=== PATIENT | male | born 1950 | race Caucasian/White ===

== ENCOUNTER 2024-03-04 13:13 | Outpatient (AMB) | payer BC, SELFPAY ==
--- NOTE | 2024-03-04 13:26 | MHC.OFFVIS ---
Vital Signs 03/04/24 13:29 Height 6 ft 2 in Weight 230 lb BMI 29.5 BP 128/76 Blood Pressure Location Lt brachial Position Sitting Pulse 90 Pulse Source Pulse Oximeter Pulse Oximetry (%) 96 Oxygen Delivery Method Room Air Intake Visit Reasons: Emphysema [employer] Laboratory Assistant Required: No Allergies Penicillins Adverse Reaction (Severe, Verified 03/04/24 13:27) Hives HPI Comments Details: The patient is here for pulmonary evaluation. The patient is a 73-year-old gentleman former smoker who was developing worsening dyspnea on exertion. The patient states that he has smoke since he was 22. Initially with a pipe and then cigars. He really enjoys smoking and he found that as a past time. Was not until he started in the lung cancer screening program. The patient had an initial CT scan in 01/31/2022 demonstrating moderate degree of emphysema and no pulmonary nodules. Subsequently after that he had a repeat CT scan at [facility] as part of the lung cancer screening program 02/01/2024 with persistent emphysema no pulmonary nodules although he does have significant calcifications all the major vessels and mild calcifications of the coronary arteries. The patient has not been using any inhalers. He states that he had 1 inhaler when he had COVID more than a year ago enough that he did not need any further inhalers. He has been noticing the progressive dyspnea the last several months. He has gotten to the point that he can not keep up with usual activities of daily living. Moderate severity. During the visit today we did go for brief walking oximetry. His oxygen actually was good around 95-96% with activity. Although the heart rate quickly increased to 135 beats per minute. Appeared to be sinus. And the patient was visibly dyspneic 6/10 in the dyspnea score. Lungs are diminished without any wheezing or rhonchi. His cardiac exam is positive for tachycardia. Explained to the patient that at this point that although he does have emphysema need to consider underlying cardiopulmonary conditions that could be affecting his exercise capacity. PENDING SALE TO [facility] Medical History (Updated 03/04/24 @ 20:27 by Khanh Link MD) Abnormal EKG Dyspnea COPD (chronic obstructive pulmonary disease) Tachycardia Social History (Updated 03/04/24 @ 13:32 by GHULAM Fernandes) Patient Tobacco Use Status: Former Tobacco user Tobacco use type: Cigarette Years Smoked: 60 Years Review of Systems Const Reports daytime sleepiness and Reports snoring Eyes Reports no additional complaints ENT Reports no additional complaints Card Reports palpitations and Reports dyspnea on exertion Resp Reports dyspnea on exertion, Reports snoring and Denies wheezing GI Reports no additional complaints Musc Reports no additional complaints Skin/Breast Denies rash Endo Reports palpitations Jc/Lymph Reports no additional complaints Aller/Immun Denies wheezing Physical Exam Vital Signs: Last Vital Signs Pulse 90 03/04/24 13:29 BP 128/76 03/04/24 13:29 Pulse Ox 96 03/04/24 13:29 Oxygen Delivery Method Room Air 03/04/24 13:29 BMI result Body Mass Index 29.5 Const General: comfortable HEENT Head: Yes normocephalic Neck Neck: Yes supple Chest Chest palpation & inspection: normal inspection of the chest Resp Effort & Inspection: normal respiratory effort Auscultation: clear to auscultation bilaterally Cardio Rate: tachycardic Heart sounds: S1 normal heart sound present and S2 normal heart sound present GI Palpation (GI): Soft to palpation Skin General skin exam: no rashes or lesions noted Extrem General: Yes no clubbing, cyanosis or edema Results Reviewed Results Reviewed: [address] [address] Electrocardiograph Report Draft Patient: Dain Brewer MR#: [id number] : 1950 Acct:[id number] Age/Sex: 73 / M ADM Date: 03/04/24 Loc: .[facility] Attending Dr: Khanh Link MD Ordering Physician: Khanh Link MD Date of Service: 03/04/24 Procedure(s): ECG 12 lead EKG Accession Number(s): [id number] cc: ~ Test Reason : copd Blood Pressure : / mmHG Vent. Rate : 104 BPM Atrial Rate : 104 BPM P-R Int : 170 ms QRS Dur : 074 ms QT Int : 344 ms P-R-T Axes : 076 023 074 degrees QTc Int : 452 ms Sinus tachycardia with occasional Premature ventricular complexes Possible Left atrial enlargement Low voltage QRS Cannot rule out Anterior infarct , age undetermined Abnormal ECG No previous ECGs available Referred By: Khanh Link Electronically Signed By: Dictated By: Signed By: DD/ 23 TD/TT: 03/04/24 1430 [address]: Assessment & Plan Assessment & Plan (1) COPD (chronic obstructive pulmonary disease): Code(s): J44.9 - Chronic obstructive pulmonary disease, unspecified Category: Medical Qualifiers: COPD type: emphysema Emphysema type: centrilobular Qualified Code(s): J43.2 - Centrilobular emphysema (2) Dyspnea: Code(s): R06.00 - Dyspnea, unspecified Category: Medical Qualifiers: Dyspnea type: dyspnea on exertion Qualified Code(s): R06.09 - Other forms of dyspnea (3) Tachycardia: Code(s): R00.0 - Tachycardia, unspecified Category: Medical (4) Abnormal EKG: Code(s): R94.31 - Abnormal electrocardiogram [ECG] [EKG] Category: Medical Plan Hold inhalers for now EKG is abnromal, will refer to cardiology at [facility] ECHO at [place] PFTs Consider PSG F/U 6-8 weeks Orders: Orders ECG 12 lead EKG Today J44.9 - Chronic obstructive pulmonary disease, unspecified, R00.0 - Tachycardia, unspecified, R06.00 - Dyspnea, unspecified CA echo transthoracic complete Today I27.20 - Pulmonary hypertension, unspecified PFT pulmonary function test Today J44.9 - Chronic obstructive pulmonary disease, unspecified Referrals Cardiology Referral R00.0 - Tachycardia, unspecified, R06.00 - Dyspnea, unspecified, R94.31 - Abnormal electrocardiogram [ECG] [EKG] Coding Level of Care Code New Pt Level 4 (23478) Diagnoses Centrilobular emphysema J43.2 COPD type: emphysema Emphysema type: centrilobular Dyspnea on exertion R06.09 Dyspnea type: dyspnea on exertion Tachycardia R00.0 Abnormal EKG R94.31 Time Spent (min) 45
[2024-03-04 13:29] VITALS: BP 128/76; PULSE 90; O2SAT 96; BMI 29.5
== END 2024-03-04 14:05 | disposition home or self-care (01) ==
PROVIDERS: PCP Family Medicine; Referring Provider Family Medicine; Visit Provider Hospitalist
DX: J43.2 Centrilobular emphysema (principal); R06.09 Other forms of dyspnea; R00.0 Tachycardia, unspecified; R94.31 Abnormal electrocardiogram [ECG] [EKG]
CPT/HCPCS: 99204

== ENCOUNTER → 2024-03-04 13:13 | Outpatient (REF) | payer BC, SELFPAY ==
--- NOTE | 2024-03-04 14:25 | ECG_ITS ---
Test Reason : copd Blood Pressure : / mmHG Vent. Rate : 104 BPM Atrial Rate : 104 BPM P-R Int : 170 ms QRS Dur : 074 ms QT Int : 344 ms P-R-T Axes : 076 023 074 degrees QTc Int : 452 ms Sinus tachycardia with occasional Premature ventricular complexes Possible Left atrial enlargement Low voltage QRS Cannot rule out Anterior infarct , age undetermined Abnormal ECG No previous ECGs available Referred By: Khanh Link Electronically Signed By:Luis Antonio Childs
== END ==
LOC: HO.CARD 13:13
PROVIDERS: PCP Family Medicine; Referring Provider Family Medicine; Visit Provider Hospitalist
DX: R00.0 Tachycardia, unspecified (principal); R06.00 Dyspnea, unspecified; J44.9 Chronic obstructive pulmonary disease, unspecified
CPT/HCPCS: 93005

== ENCOUNTER → 2024-03-04 14:25 | Outpatient (BNV) | payer BC, SELFPAY | PROVIDERS: PCP Family Medicine; Referring Provider Family Medicine; Visit Provider Internal Medicine Cardiovascular Disease | DX: R00.0 Tachycardia, unspecified (principal) | CPT/HCPCS: 93010 ==

== ENCOUNTER 2024-07-02 09:33 | Outpatient (REF) | payer BC, SELFPAY ==
--- NOTE | 2024-07-02 09:42 | PFT_ITS ---
Flows: FEV1: 75 % of predicted at 2.69 L FVC: 83 % of predicted at 3.99 L FEV1/FVC: 67 % Bronchodilator response: Absent Volumes: Total lung capacity: 69 % of predicted at 5.63 L Residual volume: 63 % of predicted at 1.86 L Slow vital capacity: 74 % of predicted at 3.77 L Expiratory reserve volume: 94 % of predicted at 1.42 L Diffusion capacity: Moderately decreased, adjusts to being mildly decreased after correction for alveolar ventilation. Impression: Moderate obstructive ventilatory defect with no bronchodilator response. Decreased diffusion capacity suggests emphysema. MTDD
--- OUTSIDE RECORDS SUMMARY | 2024-07-02 09:52 | XMS_ITS ---
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 Troponins were flat. 03/28 CABG x 3 with post op Afib. Plavix and aspirin for 1 year for NSTEMI. Will be starting cardiac rehab in May. Will be seeing gynecology teacher Dr. Castro on May 02. 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 New onset a-fib (CMS/HCC) 05/07/2024 Assessment & Plan (05/07/2024 9:55 PM EST): Post CABG Afib. Continue beta rosalind, eliquis as prescribed by gynecology teacher. Emphysema of lung 05/07/2024 Assessment & Plan (05/07/2024 9:55 PM EST): 01/2024 CT chest showed evidence of pulmonary emphysema but no suspicious pulmonary nodules seen. Recommend pulmonary follow up and repeat CT chest in 12 months. Pain of both shoulder joints 02/08/2024 Subacromial bursitis of both shoulders Seborrheic keratosis 07/12/2023 Allergic rhinitis 05/16/2023 At average risk for colon cancer 05/16/2023 Basal cell carcinoma of skin 05/16/2023 Cigarette nicotine dependence 05/16/2023 Assessment & Plan (01/24/2024 7:54 AM EDT): Current daily 3-4 cigar smoker x 20 years. Started smoking at age 12. Smoking cessation encouraged. CT lung 2021 Moderate pulmonary emphysema with no new or developing pulmonary nodule. Orders: CT Lung Cancer Screening 12 Months Annual Follow Up; Future Low back pain 05/16/2023 Diverticulosis 05/16/2023 Elevated liver transaminase level 05/16/2023 Finger numbness 05/16/2023 Glaucoma 05/16/2023 Hearing loss 05/16/2023 Hypercholesterolemia 05/16/2023 Assessment & Plan (01/24/2024 7:54 AM EDT): Tolerating statin therapy. Routine lipid monitoring. Continue statin as prescribed. Assessment & Plan (07/12/2023 5:54 PM EST): Tolerating statin therapy. Routine lipid monitoring. Continue statin as prescribed. Hyperkalemia 05/16/2023 Hypertension 05/16/2023 Inguinal hernia, left 05/16/2023 Assessment & Plan (01/24/2024 7:54 AM EDT): Left groin hernia surgery 6 years ago without mesh. Now starting to bother him again for approximately [address] Barney, referral placed. Orders: Ambulatory referral to General Surgery; Future Insomnia 05/16/2023 Assessment & Plan (01/24/2024 7:54 AM EDT): Reviewed sleep hygiene. Recommend caffeine reduction. Defers medications at this time. Assessment & Plan (07/12/2023 5:52 PM EST): Reviewed sleep hygiene. Recommend caffeine reduction. Defers medications at this time. 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 Osteoarthritis 05/16/2023 Raynaud disease 05/16/2023 Rectal hemorrhage 05/16/2023 Actinic keratosis 05/16/2023 Tubular adenoma of colon 05/16/2023 Urinary hesitancy 05/16/2023 Vitamin D deficiency 05/16/2023 Flu-like symptoms 05/16/2023 Tear of left rotator cuff 12/26/2022 Tendinitis of long head of biceps brachii of lef t shoulder 12/26/2022 Disc degeneration, lumbar 09/14/2016 Wears glasses 03/31/2010 Overview (07/12/2023): Recorded 03/31/2010 1:29PM by Liz Meraz, Historical Summary; Promoted; acuity set as * Backache 03/31/2010 Overview (07/12/2023): Recorded 03/31/2010 1:28PM by Liz Meraz, Historical Summary; Promoted; acuity set as * Current Treatment and Therapy Plans No current plan information found. Past Treatment and Therapy Plans No past plan information found. Lifetime Dose Tracking * Chemical Lifetime Dose Automatic Entry Manual Entr y TotalDLP 59 mGy 59 mGy 0 mGy [id number] 0.6 mSv 0.6 mSv 0 mSv CTDIvol Max 1.6 mGy 1.6 mGy 0 mGy CTDIvol Min 1.6 mGy 1.6 mGy 0 mGy Resolved Problems Problem Noted Date Diagnosed Date Resolved Date COVID-19 05/16/2023 05/07/2024 Former smoker 05/16/2023 01/17/2024
--- OUTSIDE RECORDS SUMMARY | 2024-07-02 09:52 | XMS_ITS | Referral Summary ---
Author Organization [facility] Address [address] [place] [address] Care Team Providers Care Rn Midwife Name Role Phone Janay Peters DO, Diana Primary Care Provider + Encounters Date Type Department Care Team Description 04/24/2024 9:00 AM EST Office Visit [address] Family Practice Department [address] [place] [address] [phone] Patrica Gustafson DO NSTEMI (non-ST elevated myocardial infarction) (HCC) (Primary Dx); S/P CABG x 3; New onset a-fib (CMS/HCC) (HCC); Pulmonary emphysema, unspecified emphysema type (HCC) 04/21/[address] Department [address] [place] [phone] Patrica Gustafson DO Surgery Follow up from Last 3 Months Allergies Active Allergy Reactions Criticality Noted Date Comments Cat Dander Unknown 07/12/2023 House Dust Unknown 07/12/2023 Mold Unknown 07/12/2023 Penicillins Unknown Medications multivitamin (MULTIPLE VITAMINS) tablet Act tiny latanoprost (XALATAN) 0.005% ophthalmic solution SMARTSIG:In Eye(s) Active atorvastatin (LIPITOR) 80 mg tablet Take 80 mg by mouth once a day. Active metoprolol tartrate 75 mg tablet Take 75 mg by mouth 2 (two) times a day. Active amiodarone (PACERONE) 200 mg tablet Take 200 mg by mouth once a day. Active aspirin 81 mg EC tablet Take 81 mg by mouth once a day. Active acetaminophen (TYLENOL) 325 mg tablet Take 650 mg by mouth. 04/05/2024 Active apixaban (ELIQUIS) 5 mg tablet Take 5 mg by mouth. 04/05/2024 Active Active Problems Problem Noted Date Diagnosed Date NSTEMI (non-ST elevated myocardial infarction) 1 07/08/2023 Assessment & Plan (05/07/2024 9:55 PM EST): 03/24/24 [facility] hospitalization for chest pain and [facility]. Troponins were flat. 03/28 CABG x 3 with post op Afib. Plavix and aspirin for 1 year for NSTEMI. Will be starting cardiac rehab in May. Will be seeing physical therapy professor Dr. Castro on May 02. 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 New onset a-fib (CMS/HCC) 05/07/2024 Assessment & Plan (05/07/2024 9:55 PM EST): Post CABG Afib. Continue beta rosalind, eliquis as prescribed by physical therapy professor. Emphysema of lung 05/07/2024 Assessment & Plan [...] Historical Summary; Promoted; acuity set as * Resolved Problems Problem Noted Date Diagnosed Date Resolved Date COVID-19 05/16/2023 05/07/2024 Former smoker 05/16/2023 01/17/2024 Immunizations Immunization Administration Dates Next Due Covid-19 Vaccine, J&J, Vecto r-nr, Rs-ad26, PF, 0.5 mL 05/22/2021,11/27/2020 INFLUENZA, SPLIT VIRUS, TRIVALENT, PF 05/30/2016 Influenza, High Dose Seasona l, Preservative Free 03/18/2021 Influenza, High Dose Seasona l, Quadrivalent PF 02/13/2022,03/18/2021 Influenza, Injectable, Madin Selena Canine Kidney, Preservative Free, Quadrivalent 03/02/2017 Influenza, Injectable, Quadr ivalent, Preservative Free 05/30/2016 Influenza, Trivalent, Adjuvanted, PF 01/17/2024, 01/28/2021 Influenza, Trivalent, MDV, Injectable 04/05/2015 ,04/02/2014,03/31/2013 Influenza, Unspecified 02/13/2022,04/04/2020 Pneumococcal Conjugate Vaccine, 13 Valent 2020 Pneumococcal Polysaccharide Vaccine, 23 Valent 04/05/2015 Pneumococcal conjugate PCV20 ,polysaccharide [id number] conjugate, adjuvant, PF (Prevnar 20) 02/28/2022 Tetanus Toxoid, Reduced Diph theria Toxoid, and Acellular Pertussis Vaccine, Adsorbed 01/04/2021,02/08/2010 Tetanus and Diphtheria Toxoi ds, Adsorbed, Preservative Free (2 Lf of Tetanus Toxoid and 2 Lf of Diphtheria Toxoid) 07/12/1997 Zoster Vaccine Recombinant 05/29/2022,03/14/2022 Zoster Vaccine, Live 04/18/2013 Social History Tobacco Use Types Packs/Day Years Used Date Smoking Tobacco: Every Day Cigarettes 0.5 62.1 Started: 1960 Passive Smoke Exposure: Past Smokeless Tobacco: Never Tobacco Cessation:Ready to Q uit: Not Asked; Counseling Given: Not Answered Alcohol Use Standard Drinks/Week Comments Not Currently 0 (1 standard drink = 0.6 oz pur e alcohol) Sex and Gender Information Value Date Recorded Sex Assigned at Male 07/07/2023 11:32 AM EST Legal Sex Male 7:24 PM EDT Gender Identity Male 07/07/2023 11:32 AM EST Sexual Orientation Straight 07/07/2023 11 :32 AM EST Last Filed Vital Signs Vital Sign Reading Time Taken Comments Blood Pressure 108/62 04/24/2024 9:08 AM EST Pulse 71 04/24/2024 9:08 AM EST Temperature 36.3 ??C (97.4 ??F) 04/24/2024 9:08 AM ES T Respiratory Rate - - Oxygen Saturation 95% 04/24/2024 9:08 AM EST Inhaled Oxygen Concentration - - Weight 105.6 kg (232 lb 12.8 oz) 04/24/2024 9:08 AM EST Height 182.9 cm (6') 04/24/2024 9:08 AM EST Body Mass Index 31.57 04/24/2024 9:08 AM EST Plan of Treatment Upcoming Encounters Date Type Department Care Team (Late st Contact Info) Description 07/17/2024 3:30 PM EST Office Visit [facility] [address] [facility] Family Practice Department [address] [place] [phone] Patrica Gustafson V, [address] [place] [address] Procedures * Due to [place] state law, this organization might not be sharing negative HIV tests. Procedure Name Priority Date/Time Associated Diagnosis Comments CT LUNG CANCER SCREENING 12 MONTHS ANNUAL FOLLOW UP Routine 02/08/2024 2:04 PM EDT Cigarette nicotine dependence without complication COMPREHENSIVE METABOLIC PANEL Routine 07/13/2023 8:07 AM EST Healthcare maintenance HEPATITIS PANEL, ACUTE Routine 01/01/2023 9:24 AM EDT US ABDOMINAL AORTA Routine 12/10/2019 8: 16 AM EDT from Last 3 Months or Most Recently Relevant to Health Maintenance Results * Due to [place] state law, this organization might not be sharing negative HIV tests. * CT Lung Cancer Screening 12 Months Annual Follow Up (02/08/2024 2:04 PM EDT) Anatomical Region Laterality Modality Chest Computed Tomogra phy 02/08/2024 3:10 PM EDT Impressions 02/21/2024 2:36 PM EDT Mild upper lobe predominant pulmonary emphysema. No suspicious pulmonary nodules or masses. No adenopathy, no pleural abnormalities. Lung-RADS Category 1: Negative- less than 1% probability ??of malignancy. Lung-RADS Category Description 1: Continue annual screening with CT Lung Screening ??in 12 months Findings under this category can include: ?? -No lung nodules or nodule(s) with benign calcification pattern ? Modifier No clinically significant or potentially significant findings Schedule lung cancer screening CT/follow-up CT: ----- ----- This report uses Lung RADS version 1.1 (2019) [email or web address] [email or web address]?la=en If this radiology report contains a blank impression section, it is an incomplete radiology report. ??Please contact the interpreting radiologist or applicable radiology division as soon as possible to obtain the completed interpretation. ? Workstation ID: [id number] Up-to-date CT equipment and radiation dose reduction techniques were employed. CTDIvol: 1.6 mGy. DLP: 59 mGy-cm. Narrative 02/21/2024 2:[address] LUNG CANCER SCREENING 12 MONTHS ANNUAL FOLLOW UP INDICATION: CT lung cancer screening. COMPARISON: Screening CT from 02/03/2022 TECHNIQUE: ??Non-enhanced chest CT. Images were acquired with helical acquisition and low dose technique. Multiplanar reconstructions including MIP, MinIP and Slab images were reviewed. Note that low dose technique uses a low level of radiation exposure that provides adequate lung detail but limited image quality in the mediastinum and upper abdomen. For radiation dose control at least one of the following techniques was used in this procedure (1) Automated exposure control (2) Adjustment of the mA and/or kV according to patient size (3) Use of iterative reconstruction technique. FINDINGS: BASE OF NECK: No abnormalities of the thoracic inlet. LUNGS AND PLEURA: Mild bilateral apical scarring. Moderate bilateral upper lobe predominant pulmonary emphysema. Areas of bandlike atelectasis in the lower lobe. No suspicious pulmonary nodules or masses. MEDIASTINUM: Normal appearance of the large mediastinal vessels. Patulous esophagus. Mild coronary calcifications. No abnormalities of the posterior mediastinum. NODES: No adenopathy. UPPER ABDOMEN: No abnormalities of the upper abdomen. BONES/SOFT TISSUES: Status post cervical vertebral fixation. Mild degenerative vertebral disease. Resulting Agency Comment [id number] Procedure Note Micah Ramos MD PhD - 02/21/2024 CT LUNG CANCER SCREENING 12 MONTHS ANNUAL FOLLOW UP INDICATION: CT lung cancer screening. COMPARISON: Screening CT from 02/03/2022 TECHNIQUE: Non-enhanced chest CT. Images were acquired with helicalacquisition and low dose technique. Multiplanar reconstructions includingMIP, MinIP and Slab images were reviewed. Note that low dose techniqueuses a low level of radiation exposure that provides adequate lung detailbut limited image quality in the mediastinum and upper abdomen. For radiation dose control at least one of the following techniques wasused in this procedure (1) Automated exposure control (2) Adjustment ofthe mA and/or kV according to patient size (3) Use of iterativereconstruction technique. FINDINGS: BASE OF NECK: No abnormalities of the thoracic inlet. LUNGS AND PLEURA: Mild bilateral apical scarring. Moderate bilateral upper lobe predominant pulmonary emphysema. Areas of bandlike atelectasis in the lower lobe. No suspicious pulmonary nodules or masses. MEDIASTINUM: Normal appearance of the large mediastinal vessels. Patulous esophagus. Mild coronary calcifications. No abnormalities of the posterior mediastinum. NODES: No adenopathy. UPPER ABDOMEN: No abnormalities of the upper abdomen. BONES/SOFT TISSUES: Status post cervical vertebral fixation. Mild degenerative vertebral disease. IMPRESSION: Mild upper lobe predominant pulmonary emphysema. No suspicious pulmonarynodules or masses. No adenopathy, no pleural abnormalities. Lung-RADS Category 1: Negative- less than 1% probability of malignancy. Lung-RADS Category Description 1: Continue annual screening with CT Lung Screening in 12 months Findings under this category can include: -No lung nodules or nodule(s) with benign calcification pattern Modifier No clinically significant or potentially significant findings Schedule lung cancer screening CT/follow-up CT: ----- ----- This report uses Lung RADS version 1.1 (2019) [email or web address] [email or web address] .[email or web address]?la=en If this radiology report contains a blank impression section, it is anincomplete radiology report. Please contact the interpreting radiologistor applicable radiology division as soon as possible to obtain thecompleted interpretation. Workstation ID: [id number] Up-to-date CT equipment and radiation dose reduction techniques wereemployed. CTDIvol: 1.6 mGy. DLP: 59 mGy-cm. us Patrica Immenhausen V, DO IMG CT PROCEDURES Final Result * Comprehensive Metabolic Panel (07/13/2023 8:07 AM EST) NA 137 136 - 145 mmol/L 07/13/2023 2:28 PM EST [facility] K 4.7 3.5 - 5.1 mmol/L 07/13/2023 2:28 PM EST [facility] Cl 101 98 - 109 mmol/L 07/13/2023 2:28 PM EST [facility] CO2 25 23 - 32 mmol/L 07/13/2023 2:28 PM EST [facility] Anion Gap 16 >=0 07/13/2023 2:28 PM EST [facility] Glucose 95 60 - 99 mg/dL 07/13/2023 2:28 PM [facility] Creatinine 0.99 0.50 - 1.12 mg/dL 07/13/2023 2:28 PM EST [facility] Calcium 9.7 8.4 - 10.4 mg/dL 07/13/2023 2:28 PM EST [facility] Total Protein 7.3 6.6 - 8.7 g/dL 07/13/2023 2:28 PM EST [facility] Albumin 4.4 3.5 - 5.0 g/dL 07/13/2023 2:28 PM EST [facility] Bilirubin, Total 0.5 0.2 - 1.2 mg/dL 07/13/2023 2:28 PM EST [facility] Alkaline Phosphatase 86 40 - 129 U/L 07/13/2023 2:28 PM EST [facility] AST 37 0 - 40 U/L 07/13/2023 2:28 PM EST [facility] ALT 28 <=41 U/L 07/13/2023 2:28 PM EST [facility] BUN 14 8 - 23 mg/dL 07/13/2023 2:28 PM EST [facility] eGFR 82 >=60 mL/min/1. 73m2 07/13/2023 2:28 PM EST [facility] Comment:The estimated glomer ular filtration rate (eGFR) is calculated using a new formula developed by the NKF-ASN task force to eliminate race-based correction factors. The new formula uses serum/plasma creatinine, age, and gender to determine eGFR. A value below 60mls/min might indicate kidney disease and will be flagged. For additional information, see Naida et al, Am J Kidney Dis. 2021;79(2):268- 288, A Unifying Approach for GFR estimation: Recommendations of the NKF-ASN Task Force on Reassessing the Inclusion of Race in Diagnosing Kidney Disease . Globulin, Total 2.9 2.1 - 4.2 g/dL 07/13/2023 2:28 PM EST [facility] A/G Ratio 1.5 1.5 - 3.0 07/13/2023 2:28 PM EST [facility] Blood Structure of peripheral vein / Unknown Venipuncture / Unknown 07/13/2023 8:07 AM EST 07/13/2023 12:43 PM EST us Patrica Gustafson V, DO LAB BLOOD ORDERABLES Fin al Result [facility] [address] [place] [address], * Hepatitis Panel, Acute (01/01/2023 9:24 AM EDT) Hepatitis A IgM Antibody Interpretation NONREACTIVE NONREACTIVE . [facility] Hepatitis B Core IgM Antibody Interpretation NONREACTIVE NONREACTIVE . [facility] Comment: Biotin concentrations greater than 150 ng/ml may cause falsely depressed results for HBCAB. Hepatitis B Surface Antigen Interpretation NONREACTIVE NONREACTIVE . [facility] 01/01/2023 9:24 AM EDT us Patrica Bradshawnusrat Peters, DO LAB BLOOD ORDERABLES Fin al Result [facility] * US Abdominal Aorta (12/10/2019 8:16 AM EDT) Anatomical Region Laterality Modality Body N/A Ultrasound 12/10/2019 9:22 AM EDT Narrative 12/10/2019 9:27 AM EDT ? DEPARTMENT OF RADIOLOGY Patient: ALISHA CHAVIS ?Unit #: [id number] Ordering MD: CIRO ORONA D.O ?: 1950 Procedure: US Aorta Screening ? Age: 69 Location: ULT ? Exam Date: 12/10/19 Status: REG CLI ? Room/Bed: Primary MD: CIRO ORONA D.O ? Patient ?Order: [id number] Additional Copy: ??CIRO ORONA D.O - INDICATION: Smoker question aneurysm TECHNIQUE: Brown scale and color Doppler ultrasound images of the retroperitoneum (aorta and kidneys). COMPARISON: None. FINDINGS: Aorta: Proximal: 2.2 x 2.5 cm. Mid: 2.0 x 1.7 cm. Distal: 1.8 x 1.8 cm. There is no evidence of abdominal aortic aneurysm. ??Wall to wall color flow is identified. Common iliac arteries: Right: 1.2 x 1.1 cm. Left: 1.3 x 1.1 cm. Kidneys: The right kidney measures 11.9 cm. The left kidney measures 10.7 cm. There is no renal stone, mass, or hydronephrosis. IMPRESSION: No evidence of abdominal aortic aneurysm. POI: NICOLA Marsh ELECTRONICALLY SIGNED BY: ??BOSTON MUNOZ MD 12/10/2019 9:24 AM Procedure Note Boston Munoz - 02/08/2023 DEPARTMENTOF RADIOLOGY Lyssa t: ALISHA CHAVIS Unit #:[id number] Ordering MD: CIRO ORONA D.O :1950 Procedure: US Aorta Screening Age:69 Location: [facility] ExamDate: 12/10/19 Status: REG [facility]/Bed: Primary MD: CIRO ORONA D.O PatientAcct #: [id number] Order:[id number] Additional Copy: CIRO ORONA D.O - INDICATION: Smoker question aneurysm TECHNIQUE: Brown scale and color Doppler ultrasound images of theretroperitoneum (aorta and kidneys). COMPARISON: None. FINDINGS: Aorta: Proximal: 2.2 x 2.5 cm. Mid: 2.0 x 1.7 cm. Distal: 1.8 x 1.8 cm.There is no evidence of abdominal aortic aneurysm. Wall to wall color flow is identified. Common iliac arteries: Right: 1.2 x 1.1 cm. Left: 1.3 x 1.1 cm. Kidneys: The right kidney measures 11.9 cm. The left kidney measures 10.7cm. There is no renal stone, mass, or hydronephrosis. IMPRESSION: No evidence of abdominal aortic aneurysm. POI: NICOLA Marsh ELECTRONICALLY SIGNED BY: BOSTON MUNOZ MD 12/10/2019 9:24 AM us Ciro Orona DO IMG US PROCEDURES Final Result from Last 3 Months or Most Recently Relevant to Health Maintenance Insurance [facility] PPO/EPO Advance Directives Documents on File Type Date Recorded Patient Visual Merchandising Specialist Expl [facility] Care Proxy 09/29/2022 06/30/2022 Care Teams Rn Midwife Relationship Specialty Start Date End Date Patrica Gustafson DO [facility] [place] [address] PCP - General Family Medicine 08/17/23
--- OUTSIDE RECORDS SUMMARY | 2024-07-02 09:52 | XMS_ITS | Clinical Summary ---
Author Organization [facility] Address [address] [place] [address] Care Team Providers Care Machine Iii Coremaker Name Role Phone Janay Peters DO, Diana Primary Care Provider + Allergies Active Allergy Reactions Criticality Noted Date [...] & Plan (05/07/2024 9:55 PM EST): 03/24/24 [facility] hospitalization for chest pain and VILLAREAL. Troponins were flat. 03/28 CABG x 3 with post op Afib. Plavix and aspirin for 1 year for NSTEMI. Will be starting cardiac rehab in May. Will be seeing rhinologist Dr. Castro on May 02. 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 New onset a-fib (CMS/HCC) 05/07/2024 Assessment & Plan (05/07/2024 9:55 PM EST): Post CABG Afib. Continue beta rosalind, eliquis as prescribed by rhinologist. Emphysema of lung 05/07/2024 Assessment & Plan [...] COVID-19 05/16/2023 05/07/2024 Former smoker 05/16/2023 01/17/2024 Encounters Date Type Department Care Team Description 04/24/2024 9:00 AM EST Office Visit [address] Department [address] [place] [id number] Patrica Gustafson V, NSTEMI (non-ST elevated myocardial infarction) (HCC) (Primary Dx); S/P CABG x 3; New onset a-fib (CMS/HCC) (HCC); Pulmonary emphysema, unspecified emphysema type (HCC) 04/21/[address] [address] Patrica Gustafson DO Surgery Follow up from Last 3 Months Immunizations Immunization Administration Dates Next Due Covid-19 [...] 23 Valent 04/05/2015 Pneumococcal conjugate PCV20 ,polysaccharide [id number] conjugate, adjuvant, PF (Prevnar 20) 02/28/2022 Tetanus Toxoid, Reduced Diph theria Toxoid, and Acellular Pertussis Vaccine, Adsorbed 01/04/2021,02/08/2010 Tetanus and Diphtheria Toxoi ds, Adsorbed, Preservative Free (2 Lf of Tetanus Toxoid and 2 Lf of Diphtheria Toxoid) 07/12/1997 Zoster Vaccine Recombinant 05/29/2022,03/14/2022 Zoster Vaccine, Live 04/18/2013 Family History Medical History Relation Name Comments Other Sister Family history of Repair Of Spina Bifida Relation Name Status Comments Sister Social History Tobacco Use Types Packs/Day Years [...] Description 07/17/2024 3:30 PM EST Office Visit [facility] Department [address] [place] [address] Patrica Gustafson DO [address] [place] [address] Health Maintenance Due Date Last Done Comments Cologuard 1950 FOBT / Fit Test 1950 Sigmoidoscopy 1950 COVID-19 Vaccine ( season) 2024 05/22/2021, 11/27/2020 Alcohol/Substance Use Screening 05/14/2024 Depression Screening and Follow-Up 05/14/2024 07/12/2023 Health Care Proxy Review 05/14/2024 07/12/2023 RSV Vaccine (60+ years old and patients) (1 - Risk 60-74 years 1-dose series) 07/11/2024 Postponed from 2012 (Patient Declined) Basic Metabolic Panel 07/12/2024 07/13/2023 , 01/01/2023, 06/05/2022, Additional history exists Social Drivers of Health Annual Screening 01/16/2025 Postponed from 05/14/2024 (Other Medical Reason) CT Lung Cancer Screening (12 months, previous LungRADS 1 or 2) 02/07/2025 02/08/2024, 02/03/2022, 02/01/2021 Colon Cancer Screening 02/24/2030 Colonoscopy 02/24/2030 02/25/2020 DTaP,Tdap,and Td Vaccines (3 - Td or Tdap) 01/04/2031 01/04/2021, 02/08/2010, 07/12/1997 Abdominal Aortic Aneurysm (AAA) Screening Completed 12/10/2019 Pneumococcal Vaccine: 50+ Years Completed 02/28/2022, 06/14/2020, 04/05/2015 Zoster Vaccines Completed 05/29/2022, 1105/2021, 04/18/2013 Hepatitis C Screening Completed 01/01/2023, 023 Influenza Vaccine Completed 01/17/2024, , 02/13/2022, Additional history exists Hepatitis B Vaccines Aged Out No long er eligible based on patient's age to complete this topic Procedures * Due to [place] state law, this organization might not be [...] to Health Maintenance Results * Due to [place] state law, this organization might not be [...] obtain the completed interpretation. ? Workstation ID: [id number] Up-to-date CT equipment and radiation dose reduction [...] Mild degenerative vertebral disease. Resulting Agency Comment [id number] Procedure Note Micah Ramos MD PhD - [...] possible to obtain thecompleted interpretation. Workstation ID: [id number] Up-to-date CT equipment and radiation dose reduction techniques wereemployed. CTDIvol: 1.6 mGy. DLP: 59 mGy-cm. us Patrica Immenhausen V, DO IMG CT PROCEDURES Final Result * Comprehensive Metabolic Panel (07/13/2023 8:07 AM EST) NA 137 136 - 145 mmol/L 07/13/2023 2:28 PM EST [facility] K 4.7 3.5 - 5.1 mmol/L 07/13/2023 2:28 PM EST [facility] Cl 101 98 - 109 mmol/L 07/13/2023 2:28 PM EST [facility] CO2 25 23 - 32 mmol/L 07/13/2023 2:28 PM EST [facility] Anion Gap 16 >=0 07/13/2023 2:28 PM EST [facility] Glucose 95 60 - 99 mg/dL 07/13/2023 2:28 PM EST [facility] Creatinine 0.99 0.50 - 1.12 mg/dL 07/13/2023 2:28 PM EST [facility] Calcium 9.7 8.4 - 10.4 mg/dL 07/13/2023 2:28 PM EST [facility] Total Protein 7.3 6.6 - 8.7 g/dL 07/13/2023 2:28 PM EST [facility] Albumin 4.4 3.5 - 5.0 g/dL 07/13/2023 2:28 PM EST [facility] Bilirubin, Total 0.5 0.2 - 1.2 mg/dL 07/13/2023 2:28 PM EST [facility] Alkaline Phosphatase 86 40 - 129 U/L 07/13/2023 2:28 PM EST [facility] AST 37 0 - 40 U/L 07/13/2023 2:28 PM EST [facility] ALT 28 <=41 U/L 07/13/2023 2:28 PM EST [facility] BUN 14 8 - 23 mg/dL 07/13/2023 2:28 PM EST [facility] eGFR 82 >=60 mL/min/1. 73m2 07/13/2023 2:28 PM EST [facility] Comment:The estimated glomer ular filtration rate (eGFR) is calculated using a new formula developed by the NKF-ASN task force to eliminate race-based correction factors. The new formula uses serum/plasma creatinine, age, and gender to determine eGFR. A value below 60mls/min might indicate kidney disease and will be flagged. For additional information, see Pascal et al, Am J Kidney Dis. 2021;79(2):268- 288, A Unifying Approach for GFR estimation: Recommendations of the NKF-ASN Task Force on Reassessing the Inclusion of Race in Diagnosing Kidney Disease . Globulin, Total 2.9 2.1 - 4.2 g/dL 07/13/2023 2:28 PM EST [facility] A/G Ratio 1.5 1.5 - 3.0 07/13/2023 2:28 PM EST [facility] Blood Structure of peripheral vein / Unknown Venipuncture / Unknown 07/13/2023 8:07 AM EST 07/13/2023 12:43 PM EST us Patrica Gustafson V, LAB BLOOD ORDERABLES Fin al Result [facility] [address] [place] [id number], * Hepatitis Panel, Acute (01/01/2023 9:24 AM EDT) Hepatitis A IgM Antibody Interpretation NONREACTIVE NONREACTIVE . [facility] Hepatitis B Core IgM Antibody Interpretation NONREACTIVE NONREACTIVE . [facility] Comment: Biotin concentrations greater than 150 ng/ml may cause falsely depressed results for HBCAB. Hepatitis B Surface Antigen Interpretation NONREACTIVE NONREACTIVE . [facility] 01/01/2023 9:24 AM EDT us Patrica Janay V, DO LAB BLOOD ORDERABLES Fin al Result [facility] * US Abdominal Aorta (12/10/2019 8:16 AM EDT) Anatomical Region Laterality Modality Body N/A Ultrasound 12/10/2019 9:22 AM EDT Narrative 12/10/2019 9:27 AM EDT ? DEPARTMENT OF RADIOLOGY Patient: ALISHA CHAVIS ?Unit #: [id number] Ordering MD: CIRO ORONA D.O ?: 1950 [...] DEPARTMENTOF RADIOLOGY Lyssa t: ALISHA CHAVIS Unit #:[id number] Ordering MD: CIRO ORONA D.O :1950 Procedure: US Aorta Screening Age:69 [facility]: [facility] ExamDate: 12/10/19 Status: REG CLIRoom/Bed: Primary MD: CIRO ORONA D.O PatientAcct #: [id number] Order:[id number] Additional Copy: CIRO ORONA D.O - [...] BY: BOSTON MUNOZ MD 12/10/2019 9:24 AM Ciro Orona DO IMG US PROCEDURES Final Result from Last 3 Months or Most Recently Relevant to Health Maintenance Insurance [facility] PPO/EPO Advance Directives Documents on File Type Date Recorded Patient Sanitation Worker Expl [facility] Care Proxy 09/29/2022 06/30/2022 Care Teams Machine Iii Coremaker Relationship Specialty Start Date End Date Patrica Gustafson DO [address] [place] [address] PCP - General Family Medicine 08/17/23
--- OUTSIDE RECORDS SUMMARY | 2024-07-02 09:52 | XMS_ITS | Continuity of Care Document ---
Author Organization [facility] Address [address] [place] [address]- Care Team Providers Care Religious Activities Director Name Role Phone Patrica Gustafson DO, V Primary Care Physician [id number] Date(s): 03/05/24 - 06/07/[address] [address]- Attending Physician: Fly Vo MD Referring Physician: Patrica Gustafson DO, V Encounter Type: Pre-OutPatient One Time Allergies, Adverse Reactions, Alerts Substance Criticality Severity Reaction Reaction Severity Status penicillins Active Medications acetaminophen 325 mg oral tablet 650 mg, 2, tablet, By Mouth, Every 6 hours, PRN, Refills 0, Maintenance, Pain , Mild, 04/05/24 11:15:00 AM EST, Partial fill upon patient request if the prescription is for a schedule II opioid drug. Start Date: 04/05/24 Status: Ordered Repeat number: 1 amiodarone 200 mg oral tablet 200 mg, 1, tablet, By Mouth, Daily, # 30 tablet, Refills 0, Maintenance, 05/02/24 2:02:00 PM EST, Partial fill upon patient request if the prescription is for a schedule II opioid drug. Start Date: 05/02/24 Status: Ordered Quantity: 30.0 Unit: tablet Repeat number: 1 apixaban 5 mg oral tablet = 5 mg, By Mouth, 2 times a day, for afib, # 180 tablet, 3 Refills, Maintenance, 05/05/24 4:33:00 PM EST, Tablet, [id number], Partial fill upon patient request if the prescription is for a schedule II opioid drug., 188, cm, 05/02/24 15:00:00 EST, Height, 108.8, kg, 03/28/24 7:17:00 EST, DryWeight Start Date: 05/05/24 Stop Date: 04/30/25 Status: Ordered Quantity: 180.0 Unit: tablet Repeat number: 4 apixaban 5 mg oral tablet = 5 mg, By Mouth, 2 times a day, for 90 days, for afib, # 180 tablet, 3 Refills, Hard Stop 04/30/2511:53:00 AM EST, 05/05/24 11:53:00 AM EST, Tablet, [id number], Partial fill upon patient request if the prescription is for a schedule II opioid drug., 188, cm, 05/02/24 14:03:00 EST, Height,108.8, kg, 03/28/24 7:17:00 EST, Dry Weight Start Date: 05/05/24 Stop Date: 04/30/25 Status: Ordered Quantity: 180.0 Unit: tablet Repeat number: 4 aspirin 81 mg oral tablet, chewable 81 mg, By Mouth, Daily, Refills 0, Maintenance, 03/26/24 3:03:00 PM EST, Partial fill upon patient request if the prescription is for a schedule II opioid drug. Start Date: 03/26/24 Status: Ordered Repeat number: 1 atorvastatin 80 mg oral tablet = 80 mg, By Mouth, Daily at bedtime, # 90 tablet, 3 Refills, Maintenance, 05/05/24 11:53:00 AM EST,Tablet, [facility] #[id number], Partial fill upon patient request if the prescription is for a scheduleII opioid drug., 188, cm, 05/02/24 14:03:00 EST, Height, 108.8, kg, 03/28/24 7:17:00 EST, Dry Weight Start Date: 05/05/24 Stop Date: 04/30/25 Status: Ordered Quantity: 90.0 Unit: tablet Repeat number: 4 latanoprost 0.005% ophthalmic solution 1 drops, Eyes, Both, Daily at bedtime, # 3 mL, 0 Refills, Maintenance, 03/24/24 11:18:00 PM EST, Ophth Solution, Partial fill upon patient request if the prescription is for a schedule II opioid drug. Start Date: 03/24/24 Status: Ordered Quantity: 3.0 Unit: mL Repeat number: 1 metoprolol tartrate 75 mg oral tablet 1 tablet = 75 mg, By Mouth, 2 times a day, # 180 tablet, 3 Refills, Maintenance, 05/05/24 11:57:00 AM EST, Tablet, [facility] #[id number], Partial fill upon patient request if the prescription is for a schedule II opioid drug., 188, cm, 05/02/24 14:03:00 EST, Height, 108.8, kg, 03/28/24 7:17:00 EST, Dry Weight Start Date: 05/05/24 Stop Date: 04/30/25 Status: Ordered Quantity: 180.0 Unit: tablet Repeat number: 4 Vashe Topical Solution 475 mL, Topically, Every 12 hours, 0 Refills, Maintenance, Solution Start Date: 04/05/24 Status: Ordered Repeat number: 1 Problem List Condition Confirmation Course Effective Dates Status Health St atus Informant Glaucoma Confirmed Active S/P CABG x 3 Confirmed Active Hypercholesteremia Confirmed Active Low back pain Confirmed Active Social History Social History Type Response Smoking Status Former smoker, quit more than 30 days ago entered on: 03/25/24 Sex Sex Representation Male (finding) Patient Care team information Care Team Personnel Name: Patrica Gustafson DO, V Position: Reference Physician Member Role: PCP Address: [address] [place] [address] Physician Services [address] Telecom: Name: Amanda Amador RN Position: S RN Member Role: Primary Care Nurse Name: Radha Del Cid RN Position: S MARIAH Supv Member Role: Primary Care Nurse Name: Concepción Fischer RN Position: S RN Member Role: Primary Care Nurse Care Team Related Persons Name: MANSI CHAVIS Insurance Providers Guarantor name: EBER Health Plan Information #: 1 Payer: [employer] Member Number: [id number] Policy Number: NA Group Number: NA Health Plan Information #: 2 Payer: [employer] Member Number: [id number] Policy Number: NA Group Number: NA
--- OUTSIDE RECORDS SUMMARY | 2024-07-02 09:52 | XMS_ITS | Data Portability ---
Author Organization [place] [facility] [place] [facility], [facility] Office Address [address] [facility] [place] [address] Care Team Providers Care Electronic Maintenance Supervisor Name Role Phone RADHA MILLER Primary Care Provider [phone] Assessment Encounter Date Assessment Date Assessment LastModified by Organization Details LastModified Time 02/15/2023 02/15/2023 Mr. Brewer has had 3 years of right index finger numbness, and the in the last month started to experience intermittent right elbow and wrist pain. I wonder if he may have carpal tunnel syndrome in addition to his Raynaud's phenomena that could be contributing to his symptoms. I would like him to proceed with his scheduled EMG testing. His exam is reassuring as there is no weakness and there is no evidence of myelopathy I would like him start physical therapy in hopes of improving his discomfort while we await the result of EMG testing. We will re-evaluate him after a few weeks of physical therapy. If his symptoms persist and depending on the results of his EMG testing, we may order additional imaging at that time. If he has any questions or concerns in the meantime he should not hesitate to reach out. I spent 30 minutes on the day of the visit, preparing for the visit by reviewing records/test results, obtaining patient history, performing a medically necessary examination, counseling/educat ing the patient on cervical radiculopathy, interpreting test results, ordering tests, communicating with other health professionals, coordinating patient care [email or web address] Not available 02/15/2023 21:16:48 03/26/2023 03/26/2023 His EMG from 03/05/23 was reviewed. There is no evidence of carpal tunnel syndrome. There is chronic right denervation of C6-7. His numbness/tingling in the right index finger is likely the result of old nerve injury. At this point, it is unlikely to improve given it has been 3 years. He denies any worsening weakness, numbness/tingling , arm pain, or neck pain. Therefore, I do not think additional imaging is warranted at this time. He should focus on recovering from his left shoulder surgery. If he has any increasing discomfort, weakness, or numbness/tingling he should not hesitate to reach out to our office. This visit was conducted as a real time interactive audio/visual telehealth visit conducted via [employer] The patient was identified by name and date of and consented to this telehealth visit. The patient was at their home in [place] and I was at my [place] office. This visit was done over the course of 20 minutes including record review. [email or web address] Not available 03/26/2023 09:23:09 05/21/2023 05/21/2023 Mr. Brewer presents with over a month of left leg pain, numbness, and weakness. His posterior leg pain is seemingly in an S1 distribution. I suspect he may have a disc herniation resulting in his radicular symptoms. We will plan to proceed with a lumbar MRI to assess for an ongoing neural compression. I discussed in the setting of weakness, I encourage him to start physical therapy. He wishes to defer at this time. I discussed if he starts to have any bladder/bowel dysfunction, saddle anesthesia, or significantly progressing weakness, he should go to the emergency department for evaluation. If he has any questions/concern s he should not hesitate to reach out to us. This visit was conducted as a real time interactive audio telehealth visit conducted via Phone Call The patient was identified by name and date of and consented to this telehealth visit. The patient was at their home in [place] and I was at my [place] office.This visit was done over the course of 20 minutes including record review. Not available 05/21/2023 09:48:59 06/18/2023 06/18/2023 His lumbar MRI from 05/30/2023 was reviewed. There are multilevel degenerative changes. There is no significant central stenosis at L4-5 or L5-S1. There is small disc protrusion at L4-5 abutting L5. There is mild foraminal stenosis at both levels (right > left). His back pain is likely the result of his diffuse degenerative changes. There is no structural explanation for his left posterior thigh discomfort/parest hesias, but fortunately this has settled down since we last saw him. I discussed if his back discomfort is bothersome enough we could consider an opinion from our physical medicine and rehabilitation doctors. He feels he is managing well enough at this point. We will plan for him to follow up with us on an as needed basis. This visit was conducted as a real time interactive audio/visual telehealth visit conducted via [employer] The patient was identified by name and date of and consented to this telehealth visit. The patient was at their home in [place] and I was at my [place] office. This visit was done over the course of 20 minutes including record review. [email or web address] Not available 06/18/2023 08:11:50 Plan of Treatment Reminders Order Date Submit Date Provider Last Modified By Organization Details Last Modified Time Details Appointments None recorded. Lab None recorded. Referral physical therapist referral 2022 023 [email or web address] [facility] [place] [address] [address] [facility] [address], [place], [address], 3 12:20:14 Procedures None recorded. Surgeries None recorded. Imaging MRI, lumbar spine, w/o contrast - PLEASE CALL PATIENT TO SCHEDULE APPOiNTMENT 2023 024 [facility], [address] [place], [address], 4 13:30:07 Medication Orders None recorded. Patient TargetsNo targets recorded. Patient InstructionsNo instructions recorded. Reason for Referral Physical Therapist Referral for Cervical radiculopathy Referring Physician: Anival Montgomery, Physician Gem Expert, Encounter Date: 02/15/2023 Results Created Date Observation Date Name Description Value Unit Range Abnormal Flag Note LastModifiedBy Organization Detail LastModifiedTime 02/16/2002/15/2023 XR, cervi corey spine No observ ation record ed. [email or web address] Not Available 2022 13:01:08 03/23/2003/05/2023 elect romyo gram + nerve condu ction study No observ ation record ed. [email or web address] [facility] [address] [place], [address], 03/25/2023 20:52:19 06/01/19 24 05/30/2023 MRI, lumba r spine , w/o contr ast No observ ation record ed. [address] [facility] [address], [address], 06/06/2023 10:01:20 Result Notes None recorded. Procedures Surgical History Date Name Laterality Status Provider Name and Address Organization Details Recorded Time 5 Orthopaedic Surgery completed Carlos Ascencio MA [facility] 02/15/2023 09:53:04 4 Orthopaedic Surgery completed Carlos Ascencio MA [facility] 02/15/2023 09:53:18 Imaging Results Imaging Date Name Status LastModified by Organization Details LastModified Time 02/15/2023 XR, cervical spine completed [place] [id number] Inform ation not available 02/17/2023 13:01:08 03/05/2023 electromyogram + nerve conduction study completed [address] [facility] [address] [place], [address], 03/25/2023 20:52:19 05/30/2023 MRI, lumbar spine, w/o contrast completed [address] [facility] [address], [address], 06/06/2023 10:01:20 Procedure Notes None recorded. Medical Equipment None Reported. Allergies Allergen ID Allergen Name Allergen Category Reaction Reaction Severity Criticality Documentation Date Start Date Code Code System Note Provider Name and Address Organization Details Recorded Time [id number] Product containin g penicilli n (product) medicatio n Not available Not available Not available 02/15/2023 [id number] SNOMED Carlos morales MA [facility] 09:50:22 Medications Name Sig Start Date Stop Date Status Note LastModified by Organization Details LastModified Time latanoprost 0.005 % eye drops active Not Available Not Available Not Available triamcinolo ne acetonide 0.1 % topical cream APPLY ITCHY RASH ON TRUNK 2X/DAY UP TO 2 WEEKS ON,1 WEEK OFF, MAY REPEAT, NO FACE GROIN BODY FOLDS 02/14 completed Not Available Not Available Not Available simvastatin 20 mg tablet active Not Available Not Available Not Available oseltamivir 75 mg capsule TAKE 1 CAPSULE (75 MG) BY MOUTH TWICE A DAY MAY OPEN CAPS AND MIX WITH A SWEETENED LIQUID OR SYRUP active Not Available Not Available No t Available albuterol sulfate HFA 90 mcg/actuati on aerosol inhaler INHALE 2 PUFFS BY MOUTH EVERY 4 HOURS NEEDED FOR WHEEZING OR SHORTNESS OF BREATH. USE WITH SPACER active Not Available Not Available No t Available nifedipine ER 60 mg tablet,exte nded release active Not Available Not Available Not Available oxycodone 5 mg tablet TAKE 1 TABLET BY MOUTH EVERY 4 HOURS NEEDED FOR PAIN active Not Available Not Available No t Available latanoprost active Not Available Not A vailable Not Available Vitals None Recorded Social History Question Answer Notes LastModified by Organizat ion Details LastModified Time Tobacco Smoking Status Current Every Day Smoker Carlos Ascencio [facility] 02/15/2023 09:49:59 What Is Your Level Of Alcohol Consumption? 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 Never Used Smokeless Tobacco Information not available 02/15/2023 How Many Years Have You Smoked Tobacco? 55 Information not available 02/15/2023 Sex: Unknown Functional Status None recorded. Mental Status None recorded. Family History Relationship Description Onset Age of this Age Resolved Age Notes LastModified by Organization Details LastModified Time Mother Acute stroke Not avai lable 02/15/2023 09:51:17 Sister Spina bifida Not avai lable 02/15/2023 09:51:26 Medical History Condition Response HIV or AIDS N High Blood Pressure N Irregular Heartbeat N MRSA N Any Other Significant Medical Issues N Weight Gain / Loss N Hearing Loss Y Angina, Heart Failure or Attack N Night Sweats N Seizures / Epilepsy N Osteoarthritis / Rheumatoid arthritis / Other N Cancer N Stroke N Ulcer / Stomach Bleeding / Indigestion N Visual Loss or Glaucoma Y Blood Clots / Phlebitis N Heart Problems N Depression or Anxiety N Emphysema / Chronic Bronchitis N Reaction to General/Local Anesthesia N Hepatitis / Jaundice N Kidney / Bladder Infections N Diabetes N Bleeding Disorder N Chemical Dependency / Alcoholism N Psoriasis / Skin Rash N Thyroid Disorder N Heart Disease N Asthma / Shortness of Breath / Sleep 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 (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) N Pulmonary Embolism N Past Encounters Encounter ID Performer Location Encounter Start Date Encounter Closed Date Diagnosis/Indication Diagnosis SNOMED-CT Code Diagnosis ICD10 Code Diagnosis Note [id number] GHULAM BRUNNER [facility] Office [address] [place] [address] 7 02/15/2023 09:18:00 02/15/2023 11:25:53 Cervical radiculopathy 28402078 M54.12 [id number] GHULAM BRUNNER [facility] Office [address] [place] [address] 7 03/26/2023 09:07:08 03/30/2023 14:12:38 Cervical radiculopathy [id number] M54.12 [id number] GHULAM BRUNNER [facility] Office [address] [place] [address] 7 05/21/2023 09:34:23 05/24/2023 14:06:17 Lumbar radiculopathy 174676203 M54.16 [id number] GHULAM BRUNNER [facility] Office [address] [place] [address] 7 06/18/2023 07:57:38 06/20/2023 13:28:54 Lumbar spondylosis 006937835 M47.896 Health Concerns Section Related Observation LastModified by Organization Detai ls LastModified Time None Recorded Concern Status LastModified by Organization Details LastModified Time None Recorded Advance Directives Directive None Recorded Payers Encounter Date Sequence Insurance Name Policy Number Policy Mcmullen Covered Member ID Mcmullen Member ID Guarantor Name 02/15/2023 1 [place] [id number] Dain Brewer [id number] Dain Brewer 03/26/2023 1 [place] [id number] Dain Brewer [id number] Dain Brewer 05/21/2023 1 [place] [id number] Dain Brewer [id number] Dain Brewer 06/18/2023 1 [place] [id number] Dain Brewer [id number] Dain Brewer Notes Date Note Type Note Provider Name and Address Organization Details Recorded Time 02/15/2023 text/html Mr. Brewer presents for evaluation for right arm pain. About 3 years ago, he started to notice a cold sensation and numbness in his right index finger. He was diagnosed with Raynaud's phenomena and placed on nifedipine. The medication helped the discoloration but not the numbness. In the last month, he start to experience some right wrist pain and right elbow pain. He does not have any radiating pain above the elbow. He does admit to his left hand being weaker than his right hand. He denies any left arm pain, numbness, or tingling. He denies any neck pain. He denies any issues with balance. He reports mild change in dexterity. Of note, he underwent a C4-7 ACDF around 2013. Prior to his surgery, he had significant right arm pain. He recalls right arm weakness and numbness. He is scheduled to undergo EMG testing in two weeks as recommended by Dr. Brown. GHULAM BRUNNER [address] [place] [address], [phone], [facility] 02/15/2023 21:19:03 03/26/2023 text/html Mr. Brewer presents for follow up visit after EMG testing and physical therapy. He reports he continues to have numbness/tingling in his right index fingers. Denies any declining strength or balance. His wrist has some discomfort intermittently. He denies any neck pain. He is currently recovering from left shoulder surgery, he report it was excision of a lipoma pressing on his rotator cuff. GHULAM BRUNNER [address] [place] [address], [phone], [facility] 03/26/2023 09:23:22 05/21/2023 text/html Mr. Brewer presents via telehealth to discuss lower back pain and left leg pain. He has been dealing with chronic lower back pain. He has seen a chiropractor for years which previously helped his back pain. Around , he started to experience left leg pain. The pain is intermittent. The distribution of pain is posterior thigh, stopping at the knee. There is numbness in the same location. He feels his left leg is weaker and a 'dragging' sensation. His most uncomfortable positon is laying down. He can walk as far as he would like. He reports he is slower. He was in [place] and utilized a cart to walk around [facility] due to fatigue and pain. The leg pain is most concerning to him. He has noticed a recent change in his balance. He denies any right leg pain, numbness/tingling. He recalls prior lumbar surgery on 'L5' region and since has had residual lower back pain. GHULAM BRUNNER [address] [place] [address], [phone], [facility] 05/21/2023 09:50:18 06/18/2023 text/html Mr. Brewer presents via for imaging review. The back pain is constant. The hip/left leg pain has improved significantly. He reports the left leg is 'dragging' still but it is not worsening. This has been present for years, since his initial lumbar surgery. Denies any new numbness/tingling. GHULAM BRUNNER [address] [place] [address], [phone], [facility] 06/18/2023 08:53:32
--- OUTSIDE RECORDS SUMMARY | 2024-07-02 09:52 | XMS_ITS | Continuity of Care Document ---
Author Organization [facility] Address [address] [place] [address]- Care Team Providers Care Ferryboat Pilot Name Role Phone LinhPatrica otero DO, V Primary Care Physician Encounter [facility] Date(s): 05/05/24 - 06/04/24 [facility] [address] [place] [address]- Encounter Type: Triage Allergies, Adverse Reactions, Alerts Substance Criticality Severity [...] Refills, Maintenance, 05/05/24 4:33:00 PM EST, Tablet, [facility]/pharmacy #[id number], Partial fill upon patient request if [...] AM EST, 05/05/24 11:53:00 AM EST, Tablet, [facility]/pharmacy #[id number], Partial fill upon patient request if [...] 3 Refills, Maintenance, 05/05/24 11:53:00 AM EST,Tablet, [facility]/pharmacy #[id number], Partial fill upon patient request if [...] Refills, Maintenance, 05/05/24 11:57:00 AM EST, Tablet, [facility]/pharmacy #[id number], Partial fill upon [...] Position: Reference Physician Member Role: PCP Address: [address] [place] [address] Physician Services [address] Telecom: Name: Amanda Amador RN Position: S RN Member Role: Primary Care Nurse Name: Radha Del Cid RN Position: S RN Supedita Member Role: Primary Care Nurse Name: Concepción Fischer RN Position: S RN Member Role: Primary Care Nurse Care Team Related Persons Name: MANSI CHAVIS Insurance Providers Guarantor name: [employer] Plan Information #: 1 Payer: [employer] Member Number: NA Policy Number: NA Group Number: NA
--- OUTSIDE RECORDS SUMMARY | 2024-07-02 09:52 | XMS_ITS | Data Portability ---
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 His pain is consistent with subacromial bursitis and he does have thickening and fluid bilaterally. He has elected to move forward with bilateral shoulder injections at today's visit. Procedures: 1) Ultrasound-guid ed subacromial injection, right shoulder. 2) Ultrasound-guid ed subacromial injection, left shoulder. He is going to call my clinic in a week to let us know how he is feeling. If he does not have any significant relief by that time, I would recommend intra-articular injections. Otherwise he should continue with his range of motion and stretching exercises and follow-up with us as needed. Not available 01/18/2024 13:00:02 02/05/2024 02/05/2024 Impression: Dain has been dealing with bilateral shoulder pain for several months now. We did subacromial injections for him at his last visit due to ultrasound findings of thickened bursa and impingement like exam findings. He did get significant relief from these injections per his report. He presents today for bilateral glenohumeral injections to target the intra-articular pathology at the biceps anchor. Procedures: Ultrasound-guid ed glenohumeral injection, bilateral shoulders. He should follow-up with Dr. Paul in 6 to 8 weeks if he does not notice any substantial difference in his pain after these injections. Not available 02/08/2024 11:35:41 Plan of Treatment Reminders Order Date Submit Date Provider Last Modified By Organization Details Last Modified Time Details Appointments None recorded. Lab None recorded. Referral None recorded. Procedures ultrasoun d guided tendon sheath injection (PROC) - request bilat biceps sheath injection shoulders 2023 0[address] Daniel [address], [address], 4 09:08:34 Surgeries None recorded. Imaging XR, elbow, 3 or more view [address], [address], 5 07:58:34 Medication Orders None recorded. Patient TargetsNo targets recorded. Patient InstructionsNo instructions recorded. Reason for Referral None Reported. Results Created Date Observation Date Name Description Value Unit Range Abnormal Flag Note LastModifiedBy Organization Detail LastModifiedTime 01/03/20 24 01/03/2024 xr shoul dee 2 vw bilat [facility] Pt Name : CAROL GALVEZhey 1 - Date: 1950 Sex: M Locati on : [facility] Visit: [id number] Admit Date: 2023 Date of Servic e: 2023 Exam : XR SHOULD ER 2+ VW BILATE RAL Status : Final Order MD : Juli PAUL Tel#:( [phone] CC Provid er:, ------ ------ ------ ------ ------ ------ ------ ------ ------ ------ ------ ------ ------ - FINDIN GS: Left side: Acromi oclavi cular joint demons trates chroni c posttr aumati c versus postop erativ e change at the distal clavic le superi or margin . Type II acromi on. No signif icant glenoh umeral joint space narrow ing. Small minera lized densit y along the inferi or glenoi d rim could reflec t sequel a of prior labral injury . Right side: Mild to modera te appear ing acromi oclavi cular degene rative change . Type II acromi on. No signif icant glenoh umeral joint space narrow ing or hypert rophic change . REPORT SIGNED BY: SCOTT CRAMER 11:09: 29 [facility] - Rad [address] [facility], [place], [address], 01/10/2024 09:37:50 06/24/19 25 elbow RT No observ ation record ed. [address], [address] 06/24/2024 12:19:49 06/24/19 25 XR, elbow , 3 or more view No observ ation record ed. [address], [address], 06/24/2024 12:19:06 Result Notes None recorded. Problems Name Problem SNOMED Code Status Onset Date Resolution Date Notes Provider Name and Address Organization Details Recorded Time Backache 624402860 Active 2009 Recorded 0 1:28PM by Yudelka Gavin Summary; Promoted; acuity set as * Not Available [facility] 7 01:32:31 History of hypertens ion 577511569 Active 2009 Recorded 0 1:29PM by Yudelka Gavin Summary; Promoted; acuity set as * Not Available [facility] 7 01:32:31 Wears glasses 574905592 Active 2009 Recorded 0 1:29PM by Yudelka Gavin Summary; Promoted; acuity set as * Not Available [facility] 7 01:32:31 Tendiniti s of long head of biceps brachii of left shoulder 536785390 Active 2022 SHAW PAUL MD [address] [place] [address], , [facility] 3 12:39:09 Rupture of rotator cuff of left shoulder 21696833611 571166 Active 2022 SHAW PAUL MD [address] [place] [address], , [facility] 3 12:39:10 History of operative procedure on shoulder 304518816 Active 2022 Left Shoulder Open excision of suprascap Lipoma ad open DCE. 03/14/23 GHULAM BOWDEN [address] [place] [address], , [facility] 3 10:44:32 Postopera tive care Active 2022 SHAW PAUL MD [address] [place] [address], , [facility] 3 20:50:25 Bilateral tendiniti s of long head of biceps brachii of shoulders 74190558634 349323 Active 2023 SHAW PAUL MD [address] [place] [address], , [facility] 4 12:00:56 Bilateral subacromi al bursitis of shoulders 19945425316 187638 Active 2023 Idalia Sanchez PA-C [address] [place] [address], , [facility] 4 13:00:14 Bilateral shoulder joint pain 33283592822 520056 Active 2023 Idalia Sanchez PA-C [address] [place] [address], , [facility] 4 11:35:24 Pain of right elbow joint 43279508897 465465 Active 2024 SHAW PAUL MD [address] [place] [address], , [facility] 5 19:38:01 Problem Notes None recorded. Procedures Surgical History Date Name Laterality Status Provider Name and Address Organization Details Recorded Time 03/28/20 24 Cardiac Surgery completed Oswaldo Montgomery [facility] 06/24/2024 12:54:03 02/05/20 24 Glenohumeral Injection completed Idalia Sanchez PA-C [address] [place], [address], [facility] 02/08/2024 11:33:11 01/18/20 24 Subacromial Injection completed Idalia Sanchez PA-C [address] [place], [address], [facility] 01/18/2024 13:00:57 03/14/20 23 complete repair of rotator cuff completed Kyle Luque [facility] 03/26/2023 13:05:37 surgical procedure on cervical spine completed Kyle Luque [place] [facility] 12/25/2022 11:15:24 operation on lumbar spine completed Kyle Luque MA [facility] 12/25/2022 11:15:37 Imaging Results Imaging Date Name Status LastModified by Organiz ation Details LastModified Time 01/03/2024 xr shoulder 2 vw bilateral completed [facility] - [address], [place], [address], 01/10/2024 09:37:50 06/24/2024 elbow RT completed [facility] [address], [address] 06/24/2024 12:19:49 06/24/2024 XR, elbow, 3 or more view completed [address], [address], 06/24/2024 12:19:06 Procedure Notes None recorded. Medical Equipment None Reported. Allergies Allergen ID Allergen Name Allergen Category Reaction Reaction Severity Criticality Documentation Date Start Date Code Code System Note Provider Name and Address Organization Details Recorded Time 622581 Product containin g penicilli n (product) medicatio n Not available Not available Not available 07/10/20162009 13819 8001 SNOMED Comme nt: Recor ded 03/31 1:28P M by Wesly John ry; Gaurav junaid; Cory abdi ce:*; Not Available [facility] 7 22:33:20 Medications Name Sig Start Date Stop Date Status Note LastModified by Organization Details LastModified Time furosemid e 40 mg tablet TAKE 1 TABLET BY MOUTH EVERY MORNING 06/24 completed Not Available Not Available Not Available latanopro st 0.005 % eye drops INSTILL 1 DROP INTO BOTH EYES AT BEDTIME active Not Available Not Available No t Available atorvasta tin 80 mg tablet ONE TABLET BY MOUTH DAILY AT BEDTIME FOR 90 DAYS active Not Available Not Available No t Available amiodaron e 200 mg tablet TAKE 2 TABLETS BY MOUTH TONIGHT (04/05) AT 9PM. STARTING TOMORROW (04/06), TAKE 1 TABLET EVERY 12 HOURS 06/24 completed Not Available Not Available Not Available spironola ctone 25 mg tablet TAKE 1 TABLET BY MOUTH EVERY DAY FOR 4 DAYS 06/24 completed Not Available Not Available Not Available simvastat in 20 mg tablet TAKE 1 TABLET EVERY EVENING active Not Available Not Available No t Available oseltamiv ir 75 mg capsule TAKE 1 CAPSULE (75 MG) BY MOUTH TWICE A DAY MAY OPEN CAPS AND MIX WITH A SWEETENE D LIQUID OR SYRUP 06/24 completed Not Available Not Available Not Available lisinopri l 10 mg tablet active Recorded 03/31/20 10 1:31PM by Liz Meraz, Historic al Summary Not Available Not Available Not Available albuterol sulfate HFA 90 mcg/actua tion aerosol inhaler INHALE 2 PUFFS BY MOUTH EVERY 4 HOURS NEEDED FOR WHEEZING OR SHORTNES S OF BREATH. USE WITH SPACER active Not Available Not Available No t Available nifedipin e ER 60 mg tablet,ex tended release Take 1 tablet every day by oral route. 03/20 completed Not Available Not Available Not Available oxycodone 5 mg tablet TAKE 1 TABLET BY MOUTH EVERY 4 HOURS NEEDED FOR PAIN 06/24 completed Not Available Not Available Not Available latanopro st active Not Available Not Available Not Available Eliquis 5 mg tablet TAKE 1 TABLET BY MOUTH 2 TIMES A DAY,X90 DAYS active Not Available Not Available No t Available metoprolo l tartrate 75 mg tablet TAKE 1 TABLET BY MOUTH TWICE A DAY active Not Available Not Available No t Available Vitals Date Recorded Body height Body mass index (BMI) Body weight Pain severity - 0-10 verbal numeric rating [Score] - Reported Provider Name and Address Organization Details Last Updated DateTime 05/21/2023 187.96 cm 31.5 kg/m2 914547.13 g 0 Kyle Luque [facility] 05/21/2023 15:57:05 Date Recorded Body height Body mass index (BMI) Body weight Pain severity - 0-10 verbal numeric rating [Score] - Reported Provider Name and Address Organization Details Last Updated DateTime 01/03/2024 187.96 cm 31.5 kg/m2 594591.13 g 2 Mina Diane [facility] 01/03/2024 10:57:24 Date Recorded Body height Body mass index (BMI) Body weight Pain severity - 0-10 verbal numeric rating [Score] - Reported Provider Name and Address Organization Details Last Updated DateTime 01/18/2024 187.96 cm 31.5 kg/m2 927416.13 g 5 Oswaldo Montgomery [facility] 01/18/2024 11:36:56 Date Recorded Body height Body mass index (BMI) Body weight Pain severity - 0-10 verbal numeric rating [Score] - Reported Provider Name and Address Organization Details Last Updated DateTime 02/05/2024 187.96 cm 31.5 kg/m2 927934.13 g 5 Oswaldo Montgomery [facility] 02/05/2024 10:05:49 Date Recorded Body height Body mass index (BMI) Body weight Provider Name and Address Organization Details Last Updated DateTime 06/24/2024 187.96 cm 31.5 kg/m2 443289.13 g Oswaldo Montgomery [facility] 06/24/2024 12:53:56 Social History Question Answer Notes LastModified by Organizat ion Details LastModified Time Tobacco Smoking Status Former Smoker Oswaldo morales [facility] 06/24/2024 12:54:09 What Is Your Level Of Alcohol Consumption? Occasional [email or web address] Information not available 12/25/2022 Are You Deaf Or Do You Have Serious Difficulty Hearing? 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 Left Information not available 06/24/2024 How Much Tobacco Do You Smoke? No [email or web address] Information not available 06/24/2024 Do You Use Any Illicit Or Recreational Drugs? No [email or web address] Information not available 12/25/2022 Has Tobacco Cessation Counseling Been Provided? No [email or web address] Information not available 12/25/2022 Do You Or Have You Ever Used Any Other Forms Of Tobacco Or Nicotine? No [email or web address] Information not available 12/25/2022 Sex: Unknown Functional Status Question Answer Note LastModified by Organizat ion Details LastModified Time What is your exercise level? Occasional [email or web address] Information not available 06/24/2024 Mental Status None recorded. Family History Relationship Description Onset Age of this Age Resolved Age Notes LastModified by Organization Details LastModified Time Father No current problems or disability [email or web address] Not available 01/09 10:24:39 Mother No current problems or disability [email or web address] Not available 01/09 10:24:39 Medical History Condition Response Coronary Artery Disease N Gout N Dyslipidemia Y Artificial Joints N Thyroid Problems N Lung Disease N Depression N Pacemaker N Anemia N Back Pain Y Hearing Impairment Y Anesthesia Complications N Heart Attack (NE) N Headaches/Migraines N Deep Vein Thrombosis N Anxiety Disorder N Diabetes N Bleeding Disorder N Arthritis Y Seizures/Epilepsy N Cardiac Stent N Blood Clot N Tuberculosis N AIDS/HIV N Inflammatory Bowel Disease N Acid Reflux (GERD) N Cancer N Stroke N Substance Abuse N Peripheral Vascular Disease N Asthma/COPD N Wears Glasses/Contacts Y Hepatitis N Organ Transplant N Heart Disease N Rheumatoid Arthritis N Pulmonary Embolism N Fibromyalgia N Stomach Ulcer N Hypertension Y Osteoporosis N Kidney Disease N Past Encounters Encounter ID Performer Location Encounter Start Date Encounter Closed Date Diagnosis/Indication Diagnosis SNOMED-CT Code Diagnosis ICD10 Code Diagnosis Note [id number] SHAW PAUL MD [facility] [address] [facility] [address] [place] [address] 12/25/2022 11:05:59 12/25/2022 12:20:50 Rupture of rotator cuff of left shoulder 3118012269 8294989 M75.102 Tendinitis of long head of biceps brachii of left shoulder 513364059 M75.22 [id number] MD CAT Owens [address] [address] 01/09/2023 09:45:33 01/09/2023 10:30:48 Pain of right wrist 9983012933 55994 M25.531 Numbness of hand 0129988 04 R20.0 [id number] MD CAT SERRATO [address] [address] 01/29/2023 07:42:44 01/30/2023 18:53:11 Rupture of rotator cuff of left shoulder 6428787830 2823526 M75.102 Lipoma of shoulder 60283 4000 D17.22 I spent a total of 20 minutes during this real-time interactiv e virtual clinical encounter. Greater than 50% of the time was devoted to counseling and coordinati ng care including review of records, pertinent lab data and studies, discussing diagnostic evaluation and workup, planned therapeuti c interventi ons and future dispositio n of care. This time includes any additional research needed to obtain further informatio n in formulatin g the plan of care of this patient. [id number] MD CAT SERRATO [address] [address] 02/26/2023 07:36:05 02/28/2023 15:44:23 Rupture of rotator cuff of left shoulder 1407137994 1154612 M75.102 Lipoma of shoulder 04300 4000 D17.22 I spent a total of 20 minutes during this real-time interactiv e virtual clinical encounter. Greater than 50% of the time was devoted to counseling and coordinati ng care including review of records, pertinent lab data and studies, discussing diagnostic evaluation and workup, planned therapeuti c interventi ons and future dispositio n of care. This time includes any additional research needed to obtain further informatio n in formulatin g the plan of care of this patient. [id number] MD CAT Owens [address] [address] 03/20/2023 11:40:57 03/20/2023 13:11:37 Pain of right wrist 8958490609 61037 M25.531 Numbness of hand 4836319 04 R20.0 [id number] MD CAT SERRATO [address] [address] 03/26/2023 12:55:25 03/26/2023 14:21:06 Postoperative care 390762306 Z48.89 [id number] MD CAT SERRATO [facility] [address] [facility] [place] [address] 05/21/2023 07:53:11 05/31/2023 08:46:36 Postoperative care 534618665 Z48.89 [id number] MD CAT SERRATO [facility] [address] [facility] [place] [address] 01/03/2024 10:43:33 01/03/2024 11:23:45 Bilateral tendinitis of long head of biceps brachii of shoulders 0811560618 3185695 M75.21 M75.22 [id number] Idalia Sanchez PA-C [address] [address] 01/18/2024 10:48:55 01/18/2024 14:05:27 Bilateral subacromial bursitis of shoulders 6629714749 7003141 M75.51 M75.52 [id number] Idalia Sanchez PA-C [address] [address] 02/05/2024 08:45:27 02/05/2024 10:48:57 Bilateral shoulder joint pain 4996400951 3548951 M25.511 M25.512 [id number] MD CAT SERRATO [address] [address] 06/24/2024 12:08:22 06/24/2024 13:57:09 Pain of right elbow joint 5599572070 1611820 M25.521 Health Concerns Section Related Observation LastModified by Organization Detai ls LastModified Time None Recorded Concern Status LastModified by Organization Details LastModified Time None Recorded Advance Directives Directive None Recorded Payers Encounter Date Sequence Insurance Name Policy Number Policy Mcmullen Covered Member ID Mcmullen Member ID Guarantor Name 05/21/2023 1 [place] [id number] Dain [id number] 01/03/2024 1 [employer] [employer] [place] [id number] Dain [id number] 01/18/2024 1 [place] [employer] [employer] [place] [id number] Dain Brewer [id number] 02/05/2024 1 [employer] [place] [employer] [employer] [place]) [id number] Dain Brewer [id number] 06/24/2024 1 [employer] [place] [employer] [place]) [id number] Dain Brewer [id number] Notes Date Note Type Note Provider Name and Address Organization Details Recorded Time 05/21/2023 text/html Patient is here for follow-up by phone. He underwent resection of lipoma about 2 months ago. He reports his shoulder is feeling great. The surgery helped significantly. He has no mobility issues and is back to near full function. At this point he may increase his activity profile as tolerated. Modest use of the shoulder is encouraged. He may follow-up with me as needed. All questions were answered. SHAW PALU MD [address] [place] [address], [phone], [facility] 05/24/2023 21:17:06 01/03/2024 text/html The patient is well-known to me. He underwent surgery on his left shoulder a year ago for a large lipoma. This was embedded into the supraspinatus muscle. He did extremely well with that surgery and in fact the pain basically went away. He is here today because he has some bilateral shoulder soreness. His shoulders have been sore for about 6 months. Mostly this appears to the biceps region bilaterally. This been no real injury or trauma. He did do heavy work throughout his life with some wear and tear. He notes soreness discomfort and pain. However it is not severe. He did have an MRI scan on the left shoulder about a year ago which I did review today. Really not too much pathology intra-articular. Clinically he is well-appearing comfortable no acute distress. Both shoulders elevate 170 external approximately 80 internal 50. Certainly excellent range of motion with no crepitus grinding or signs of arthrosis. The left shoulder which underwent prior surgery has a clean dry well-healed incision. He does not have AC joint pain. We did do a distal clavicle resection on that side at the time. His tenderness is over the biceps. Finley's test is moderate. Comprehensive rotator cuff testing statically and dynamically shows no deficit. His contralateral shoulder the right shoulder shows a similar exam. The AC joint is nontender. Somewhat prominent but negative crossover test. No pain with passive motion. Static and dynamic functional rotator cuff testing shows no deficit. Negative empty can sign. Some discomfort over the bicipital groove. Mildly positive Finley's test. Distally he is neurologically intact. This does not appear to be coming from the cervical spine. Bilateral x-rays are obtained at [facility]. These do not demonstrate significant arthrosis. There are acromioclavicular joint degenerative changes. Mild subacromial spurring. Impression: Bilateral bicipital tendinopathy is noted. He may have some partial tearing. Overall fairly benign shoulder exam. He is status post resection of a large lipoma on the left shoulder. That did do very well for him. Plan: Findings are reviewed and discussed. At this point I would like to start with guided intra-articular injections to his shoulder. This should help with the biceps anchor and help localize the pain. It does not appear to be AC joint in nature. If not improved then I would move forward with an MRI scan likely on the right shoulder. I answered all questions for him and we will stay in touch. SHAW PAUL MD [address] [place] [address], [phone], [facility] 01/04/2024 12:01:20 01/18/2024 text/html Dain presents to clinic today for bilateral ultrasound-guided shoulder injections. He has been dealing with pain for over 6 months now. The pain is affecting his ability to lay on his back at night. He describes the pain over the anterior portion of the shoulder bilaterally Idalia Sanchez PA-C [address] [place] [address], [phone], [facility] 01/18/2024 13:01:01 02/05/2024 text/html Dain presents to clinic today for bilateral ultrasound-guided glenohumeral injections for shoulder pain. I performed bilateral subacromial injections for him on 01/18/2024 and he did not get any substantial relief from these. I had advised him to return to clinic for intra-articular injections if he did not get relief after 3 to 4 weeks. Idalia Sanchez PA-C [address] [place], [address], [facility] 02/08/2024 11:36:08 06/24/2024 text/html The patient retu rns for reevaluation this time on his right elbow. He has had numbness in his fingers for quite some time. EMG testing was negative. He saw Dr. Caal from our hand service. She did not feel carpal tunnel surgery was needed. He may have Raynaud's type symptoms. He has had neck surgery with Dr. Shannon, MRI scan was performed his neck is fine. The shoulder did very well. His shoulder pain is gone from resection of the large lipoma. For the most part his elbow is pretty good. He would state that he has very mild intermittent pain. He does not have pain at the cubital tunnel. No history of trauma. Here today for elbow evaluation. Dain relates to me that he just had cardiac surgery March 28. Really 3 months ago. He is doing extraordinarily well from that. Clinically he is well-appearing comfortable no acute distress. His elbow demonstrates full range of motion. Pronation 50 supination 70. Biceps triceps are normal. Neurologic examination shows no motor deficits. He has no pain over the cubital tunnel. Flexion pronation testing is nontender. I can feel a small ossicle at his olecranon. This does not cause pain. Triceps function is good. No evidence of medial or lateral epicondylitis. I did do Bam testing on him. And his return was somewhat sluggish compared to his contralateral side. He had good perfusion at rest. X-ray obtained demonstrates a small posterior spur at the olecranon with some very minimal degenerative changes. Impression: Fairly benign elbow examination. I do not believe this is the source of his neuritis. No evidence of cubital tunnel syndrome. He has some very mild elbow arthrosis. Plan: Findings are reviewed and discussed. I would not recommend any significant orthopedic treatment. He may benefit from neurologic evaluation and even some noninvasive vascular testing such as Doppler ultrasound. These would be my suggested consultations. I answered all questions and would be happy to assist. SHAW PAUL MD [address] [place], [address], [facility] 06/24/2024 19:38:24
--- OUTSIDE RECORDS SUMMARY | 2024-07-02 09:52 | XMS_ITS | Continuity of Care Document ---
Author Organization [facility], [facility] Address [address] [place] [address] Care Team Providers Care Varitype Operator Name Role Phone [facility] Primary Care Provi dee RADHA MILLER Primary Care Provider [phone] Assessment No assessment recorded. Plan of Treatment Reminders Order Date Submit Date Provider Last Modified By Organization Details Last Modified Time Details Appointments None record ed. Lab None record ed. Referral None record ed. Procedures None record ed. Surgeries None record ed. Imaging XR, elbow, 3 or more view 025 06/24/[address], [address], 07:58:34 Medication Orders None record ed. Patient TargetsNo targets recorded. Patient InstructionsNo instructions recorded. Reason for Referral None Reported. Results Created Date Observation Date Name Description Value Unit Range Abnormal Flag Note LastModifiedBy Organization Detail LastModifiedTime 06/24/19 25 elbow RT No observ ation record ed. Novatek [address], [address] 06/24/2024 12:19:49 06/24/19 25 XR, elbow , 3 or more view No observ ation record ed. [address], [address], 06/24/2024 12:19:06 Result Notes None recorded. Problems Name Problem SNOMED Code Status Onset Date Resolution Date Notes Provider Name and Address Organization Details Recorded Time Backache 802496138 Active 2009 Recorded 0 1:28PM by Yudelka Gavin Summary; Promoted; acuity set as * Not Available [facility] 7 01:32:31 History of hypertens ion 106562041 Active 2009 Recorded 0 1:29PM by Yudelka Gavin Summary; Promoted; acuity set as * Not Available [facility] 7 01:32:31 Wears glasses 640247037 Active 2009 Recorded 0 1:29PM by Yudelka Gavin Summary; Promoted; acuity set as * Not [facility] 7 01:32:31 Tendiniti s of long head of biceps brachii of left shoulder 722857807 Active 2022 SHAW PAUL MD [address] [place] [address], , [facility] 3 12:39:09 Rupture of rotator cuff of left shoulder 69346388346 284461 Active 2022 SHAW PAUL MD [address] [place] [address], , [facility] 3 12:39:10 History of operative procedure on shoulder 908371405 Active 2022 Left Shoulder Open excision of suprascap Lipoma ad open DCE. 03/14/23 GHULAM BOWDEN [address] [place] [address], , [facility] 3 10:44:32 Postopera tive care Active 2022 SHAW PAUL MD [address] [place] [address], , [facility] 3 20:50:25 Bilateral tendiniti s of long head of biceps brachii of shoulders 26606162729 661157 Active 2023 SHAW PAUL MD [address] [place] [address], , [facility] 4 12:00:56 Bilateral subacromi al bursitis of shoulders 45192410293 876094 Active 2023 Idalia Snachez PA-C [address], [place], , [facility] 4 13:00:14 Bilateral shoulder joint pain 08151270943 796810 Active 2023 Idalia Sanchez PA-C [address], [place], , [facility] 11:35:24 Pain of right elbow joint 87104065001 550953 Active 2024 SHAW PAUL MD [address], [place], , [facility] 5 19:38:01 Problem Notes None recorded. Procedures Surgical History Date Name Laterality Status Provider Name and Address Organization Details Recorded Time 03/28/20 24 Cardiac Surgery completed Oswaldo Montgomery [facility] 06/24/2024 12:54:03 02/05/20 24 BC Glenohumeral Injection completed Idalia Sanchez PA-C [address] [place] [address], , [facility] 02/08/2024 11:33:11 01/18/20 24 BC Subacromial Injection completed Idalia Sanchez PA-C [address] [place] [address], , [facility] 01/18/2024 13:00:57 03/14/20 23 complete repair of rotator cuff completed Kyle Luque [facility] 03/26/2023 13:05:37 surgical procedure on cervical spine completed Kyle Luque [facility] 12/25/2022 11:15:24 operation on lumbar spine completed Kyle Luque [facility] 12/25/2022 11:15:37 Imaging Results Imaging Date Name Status LastModified by Organiz ation Details LastModified Time 06/24/2024 XR, elbow, 3 or more view completed malcolm Gale [address], [address], 06/24/2024 12:19:06 Procedure Notes None recorded. Medical Equipment None Reported. Allergies Allergen ID Allergen Name Allergen Category Reaction Reaction Severity Criticality Documentation Date Start Date Code Code System Note Provider Name and Address Organization Details Recorded Time 447156 Product containin g penicilli n (product) medicatio n Not available Not available Not available 07/10/20162009 68929 8001 SNOMED Comme nt: Recor ded 03/31 1:28P M by Wesly John ry; Gaurav junaid; Cory abdi ce:*; Not Available [facility] 7 22:33:20 Medications Name Sig Start [...] Updated DateTime 06/24/2024 187.96 cm 31.5 kg/m2 764989.13 g Oswaldo Steinzbigniew [facility] 06/24/2024 12:53:56 Social History Question Answer Notes LastModified by Organizat ion Details LastModified Time Tobacco Smoking Status Former Smoker Oswaldo Steinzbigniew morales [facility] 06/24/2024 12:54:09 What Is Your Level Of Alcohol Consumption? Occasional [email or web address] Information not available 12/25/2022 Are You Deaf Or Do You Have Serious Difficulty Hearing? 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 Left Information not available 06/24/2024 How Much Tobacco Do You Smoke? No [email or web address] Information not available 06/24/2024 Do You Use Any Illicit Or Recreational Drugs? No [email or web address] Information not available 12/25/2022 Has Tobacco Cessation Counseling Been Provided? No [email or web address] Information not available 12/25/2022 Do You Or Have You Ever Used Any Other Forms Of Tobacco Or Nicotine? No [email or web address] Information not available 12/25/2022 Sex: Unknown Functional Status Question Answer Note LastModified by Organizat ion Details LastModified Time What is your exercise level? Occasional [email or web address] Information not available 06/24/2024 Mental Status None recorded. Family History Relationship Description Onset Age of this Age Resolved Age Notes LastModified by Organization Details LastModified Time Father No current problems or disability [email or web address] Not available 01/09 10:24:39 Mother No current problems or disability [email or web address] Not available 01/09 10:24:39 Medical History Condition Response Coronary Artery Disease N Dyslipidemia Y Gout N Artificial Joints N Thyroid Problems N Lung Disease N Depression N Pacemaker N Anemia N Back Pain Y Hearing Impairment Y Anesthesia Complications N Heart Attack ([place]) N Headaches/Migraines N Deep Vein Thrombosis N Anxiety Disorder N Diabetes N Bleeding Disorder N Arthritis Y Seizures/Epilepsy N Cardiac Stent N Blood Clot N Tuberculosis N AIDS/HIV N Inflammatory Bowel Disease N Acid Reflux (GERD) N Cancer N Stroke N Substance Abuse N Peripheral Vascular Disease N Asthma/COPD N Wears Glasses/Contacts Y Hepatitis N Heart Disease N Organ Transplant N Rheumatoid Arthritis N Pulmonary Embolism N Fibromyalgia N Hypertension Y Stomach Ulcer N Osteoporosis N Kidney Disease N Past Encounters Encounter ID Performer Location Encounter Start Date Encounter Closed Date Diagnosis/Indication Diagnosis SNOMED-CT Code Diagnosis ICD10 Code Diagnosis Note [id number] SHAW PAUL MD [address] [address] 06/24/2024 12:08:22 06/24/2024 13:57:09 Pain of right elbow joint 6927052357 6900946 M25.521 Health Concerns Section Related Observation LastModified by Organization Detai ls LastModified Time None Recorded Concern Status LastModified by Organization Details LastModified Time None Recorded Payers Encounter Date Sequence Insurance Name Policy Number Policy Mcmullen Covered Member ID Mcmullen Member ID Guarantor Name 06/24/2024 1 [place] (PPO) [id number] Dain Brewer [id number] Florence Brewer Notes Date Note Type Note Provider Name and Address Organization Details Recorded Time 06/24/2024 text/html The patient retu rns for [...] be happy to assist. SHAW PAUL MD [address] [place] [address], [phone], [facility] 06/24/2024 19:38:24
[2024-07-02 10:34] VITALS: PULSE 63; O2SAT 99
== END 2024-07-02 09:34 | disposition home or self-care (01) ==
LOC: HO.RESP 09:33
PROVIDERS: PCP Family Medicine; Visit Provider Hospitalist
DX: J44.9 Chronic obstructive pulmonary disease, unspecified (principal)
CPT/HCPCS: 94010; 94640; 94727; 94729

== ENCOUNTER → 2024-07-02 09:42 | Outpatient (BNV) | payer BC, SELFPAY | PROVIDERS: PCP Family Medicine; Visit Provider Internal Medicine Pulmonary Disease | DX: J44.9 Chronic obstructive pulmonary disease, unspecified (principal) | CPT/HCPCS: 94060; 94727; 94729 ==

== ENCOUNTER 2024-07-08 10:49 | Outpatient (AMB) | payer BC, SELFPAY ==
--- NOTE | 2024-07-08 10:54 | MHC.OFFVIS ---
Vital Signs 07/08/24 10:55 Height 6 ft 2 in Weight 245 lb 13.047 oz BMI 31.6 BP 110/66 Blood Pressure Location Lt brachial Position Sitting Pulse 61 Pulse Source Pulse Oximeter Pulse Oximetry (%) 96 Oxygen Delivery Method Room Air Intake Visit Reasons: S/p PFT Allergies Penicillins Adverse Reaction (Severe, Verified 07/08/24 11:02) Hives HPI Comments Details: The patient is a 73-year-old gentleman former smoker who was developing worsening dyspnea on exertion. The patient states that he has smoke since he was 22. Initially with a pipe and then cigars. He really enjoys smoking and he found that as a past time. Was not until he started in the lung cancer screening program. The patient had an initial CT scan in 01/31/2022 demonstrating moderate degree of emphysema and no pulmonary nodules. Subsequently after that he had a repeat CT scan at [facility] as part of the lung cancer screening program 02/01/2024 with persistent emphysema no pulmonary nodules although he does have significant calcifications all the major vessels and mild calcifications of the coronary arteries. The patient has not been using any inhalers. He states that he had 1 inhaler when he had COVID more than a year ago enough that he did not need any further inhalers. He has been noticing the progressive dyspnea the last several months. He has gotten to the point that he can not keep up with usual activities of daily living. Moderate severity. During the visit today we did go for brief walking oximetry. His oxygen actually was good around 95-96% with activity. Although the heart rate quickly increased to 135 beats per minute. Appeared to be sinus. And the patient was visibly dyspneic 6/10 in the dyspnea score. Lungs are diminished without any wheezing or rhonchi. His cardiac exam is positive for tachycardia. Explained to the patient that at this point that although he does have emphysema need to consider underlying cardiopulmonary conditions that could be affecting his exercise capacity. 07/08/2024 the patient is here for a pulmonary follow-up visit. Since we last spoke he did have to have a cardiac catheterization and ultimately underwent a three-vessel cardiac bypass surgery. He tolerated that well and is recovering now I cardiac rehab. He still have significant shortness breath. With minimal activity still 6/10. He did undergo pulmonary function studies which she did review after he recovered from his surgery still demonstrating moderate COPD but also demonstrating moderate restriction. We also did review his last CT scan of the chest that he had back in February demonstrating moderate degree of emphysema. I also personally looked at the image from his last chest x-ray postoperatively demonstrating a moderate left-sided pleural effusion. His PFTs do demonstrate a moderate restriction which could be related to his recent surgery. Will go ahead having repeat the x-ray to make sure that that lung is expanded. In the meantime will optimize his respiratory therapy by placing him on Trelegy and also a rescue inhaler. He can use the rescue inhaler as needed also 15 minute before exercise. Once he completes cardiac rehab be a great candidate for pulmonary rehabilitation. Will plan to follow-up in 4 months if he has any issues before that he can always call for an earlier assessment. [facility] Medical History (Updated 07/08/24 @ 20:11 by Khanh Link MD) CAD (coronary artery disease) Pleural effusion Abnormal EKG Dyspnea COPD (chronic obstructive pulmonary disease) Tachycardia Social History Patient Tobacco Use Status: Former Tobacco user Tobacco use type: Cigarette Years Smoked: 60 Years Review of Systems Const Reports daytime sleepiness and Reports snoring Eyes Reports no additional complaints ENT Reports no additional complaints Card Denies palpitations and Reports dyspnea on exertion Resp Reports dyspnea on exertion, Reports snoring and Denies wheezing GI Reports no additional complaints Musc Reports no additional complaints Skin/Breast Denies rash Endo Denies palpitations Jc/Lymph Reports no additional complaints Aller/Immun Denies wheezing Physical Exam Vital Signs: Last Vital Signs Pulse 61 07/08/24 10:55 BP 110/66 07/08/24 10:55 Pulse Ox 96 07/08/24 10:55 Oxygen Delivery Method Room Air 07/08/24 10:55 BMI result Body Mass Index 31.6 Const General: comfortable HEENT Head: Yes normocephalic Neck Neck: Yes supple Chest Chest palpation & inspection: normal inspection of the chest Resp Effort & Inspection: normal respiratory effort Auscultation: diminished lung sounds Cardio Rate: tachycardic Heart sounds: S1 normal heart sound present and S2 normal heart sound present GI Palpation (GI): Soft to palpation Skin General skin exam: no rashes or lesions noted Extrem General: Yes no clubbing, cyanosis or edema Assessment & Plan Assessment & Plan (1) COPD (chronic obstructive pulmonary disease): Code(s): J44.9 - Chronic obstructive pulmonary disease, unspecified Category: Medical Qualifiers: COPD type: emphysema Emphysema type: centrilobular Qualified Code(s): J43.2 - Centrilobular emphysema (2) Dyspnea: Code(s): R06.00 - Dyspnea, unspecified Category: Medical Qualifiers: Dyspnea type: dyspnea on exertion Qualified Code(s): R06.09 - Other forms of dyspnea (3) ANGELY (obstructive sleep apnea): Code(s): G47.33 - Obstructive sleep apnea (adult) (pediatric) Category: Medical (4) Pleural effusion: Code(s): J90 - Pleural effusion, not elsewhere classified Category: Medical (5) CAD (coronary artery disease): Comment: s/p CABG Code(s): I25.10 - Atherosclerotic heart disease of [place] coronary artery without angina pectoris Category: Medical Qualifiers: Coronary Disease-Associated Artery/Lesion type: [place] artery [place] vs. transplanted heart: [place] heart Associated angina: unspecified whether angina present Qualified Code(s): I25.10 - Atherosclerotic heart disease of [place] coronary artery without angina pectoris Plan start Trelegy start MARIAM as needed and prior to exercise PFTs moderate Obstruction/restriction CXR Home PSG continue Cardiac rehab, would benefit from pulmonary rehab afterwards F/U 2-3 months Orders: Orders RT home sleep study Today G47.33 - Obstructive sleep apnea (adult) (pediatric) Medications: New mzdcznxzcev-kaugmyfsk-uahlnnra 100-62.5-25 mcg (Trelegy Ellipta) 1 inh inhalation DAILY 30 days 60 ea 11RF J44.9 - Chronic obstructive pulmonary disease, unspecified albuterol sulfate 90 mcg/actuation 2 inhalations inhalation Q6H 30 days PRN 18 grams 12RF shortness of breath or wheezing J44.9 - Chronic obstructive pulmonary disease, unspecified Coding Level of Care Code Est Pt Level 4 (45009) Complex EM visit Add On G2211 Diagnoses Centrilobular emphysema J43.2 COPD type: emphysema Emphysema type: centrilobular Dyspnea on exertion R06.09 Dyspnea type: dyspnea on exertion ANGELY (obstructive sleep apnea) G47.33 Pleural effusion J90 Coronary artery disease involving [place] coronary artery of [place] heart, unspecified whether angina present I25.10 Coronary Disease-Associated Artery/Lesion type: [place] artery [place] vs. transplanted heart: [place] heart Associated angina: unspecified whether angina present Time Spent (min) 17
[2024-07-08 10:55] VITALS: BP 110/66; PULSE 61; O2SAT 96; BMI 31.6
--- OUTSIDE RECORDS SUMMARY | 2024-07-08 13:01 | XMS_ITS | Data Portability ---
Author Organization [place] [facility], [facility] Address [address] [facility], [address] [place] [address] Care Team Providers Care Forms Analyst Name Role Phone RADHA MILLER Primary Care Provider [phone] Assessment Encounter Date Assessment Date Assessment LastModified [...] with other health professionals, coordinating patient care [email or web address] Not available 02/15/2023 21:16:48 03/26/2023 03/26/2023 His [...] time interactive audio/visual telehealth visit conducted via [employer] The patient was identified by name and date of and consented to this telehealth visit. The patient was at their home in [place] and I was at my [place] office. This visit was done over the course of 20 minutes including record review. [email or web address] Not available 03/26/2023 09:23:09 05/21/2023 05/21/2023 Mr. [...] The patient was at their home in [place] and I was at my [place] office.This visit was done over the course [...] time interactive audio/visual telehealth visit conducted via [employer] The patient was identified by name and date of and consented to this telehealth visit. The patient was at their home in [place] and I was at my [place] office. This visit was done over the course of 20 minutes including record review. [email or web address] Not available 06/18/2023 08:11:50 Plan of Treatment Reminders Order Date Submit Date Provider Last Modified By Organization Details Last Modified Time Details Appointments None recorded. Lab None recorded. Referral physical therapist referral 2022 023 [email or web address] [facility] - [place] [address] [address] [facility] [address], [place], [address], 3 12:20:14 Procedures None recorded. Surgeries None recorded. Imaging MRI, lumbar spine, w/o contrast - PLEASE CALL PATIENT TO SCHEDULE APPOiNTMENT 2023 024 [facility], [address] [place], [address], 4 13:30:07 Medication Orders None recorded. Patient TargetsNo targets recorded. Patient InstructionsNo instructions recorded. Reason for Referral Physical Therapist Referral for Cervical radiculopathy Referring Physician: Anival Montgomery, Physician Photography Professor, Encounter Date: 02/15/2023 Results Created Date Observation Date Name Description Value Unit Range Abnormal Flag Note LastModifiedBy Organization Detail LastModifiedTime 02/16/2002/15/2023 XR, cervi corey spine No observ ation record ed. [email or web address] Not Available 2022 13:01:08 03/23/2003/05/2023 elect romyo gram + nerve condu ction study No observ ation record ed. [email or web address] [facility] [address] [place], [address], 03/25/2023 20:52:19 06/01/19 24 05/30/2023 MRI, lumba r spine , w/o contr ast No observ ation record ed. [address] [facility] [address], [address], 06/06/2023 10:01:20 Result Notes None recorded. Procedures Surgical History Date Name Laterality Status Provider Name and Address Organization Details Recorded Time 5 Orthopaedic Surgery completed Carlos Ascencio MA [facility] 02/15/2023 09:53:04 4 Orthopaedic Surgery completed Carlos Ascencio MA [facility] 02/15/2023 09:53:18 Imaging Results Imaging Date Name Status LastModified by Organization Details LastModified Time 02/15/2023 XR, cervical spine [email or web address] [id number] Inform ation not available 02/17/2023 13:01:08 03/05/2023 electromyogram + nerve conduction study completed [address] [facility] [address] [place], [address], 03/25/2023 20:52:19 05/30/2023 MRI, lumbar spine, w/o contrast completed [address] [facility] [address], [address], 06/06/2023 10:01:20 Procedure Notes None recorded. Medical Equipment None Reported. Allergies Allergen ID Allergen Name Allergen Category Reaction Reaction Severity Criticality Documentation Date Start Date Code Code System Note Provider Name and Address Organization Details Recorded Time 19661219 Product containin g penicilli n (product) medicatio n Not available Not available Not available 02/15/2023 83943 8001 SNOMED Carlos morales MA [facility] 09:50:22 Medications Name [...] Status Current Every Day Smoker Carlos Ascencio [facility] 02/15/2023 09:49:59 What Is [...] lable 02/15/2023 09:51:26 Medical History Condition Response Blood Clots / Phlebitis N Heart Problems N HIV or AIDS N Depression or Anxiety N High Blood Pressure N Irregular Heartbeat N MRSA N Any Other Significant Medical Issues N Emphysema / Chronic Bronchitis N Reaction to General/Local Anesthesia N Weight Gain / Loss N Hepatitis / Jaundice N Kidney / Bladder Infections N Diabetes N Bleeding Disorder N Hearing Loss Y Angina, Heart Failure or Attack N Night Sweats N Seizures / Epilepsy N Osteoarthritis / Rheumatoid arthritis / Other N Cancer N Stroke N Chemical Dependency / Alcoholism N Ulcer / Stomach Bleeding / Indigestion N Visual Loss or Glaucoma Y Psoriasis / Skin Rash N Thyroid Disorder N Heart Disease N Asthma / Shortness of Breath / Sleep Advertising Clerk ea (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) N Pulmonary Embolism N Past Encounters Encounter ID Performer Location Encounter Start Date Encounter Closed Date Diagnosis/Indication Diagnosis SNOMED-CT Code Diagnosis ICD10 Code Diagnosis Note [id number] GHULAM BRUNNER [facility] Office [address] [place] [address] 7 02/15/2023 09:18:00 02/15/2023 11:25:53 Cervical radiculopathy 49555938 M54.12 [id number] GHULAM BRUNNER [facility] Office [address] [place] [address] 7 03/26/2023 09:07:08 03/30/2023 14:12:38 Cervical radiculopathy 01936917 M54.12 [id number] GHULAM BRUNNER [facility] Office [address] [place] [address] 7 05/21/2023 09:34:23 05/24/2023 14:06:17 Lumbar radiculopathy 218126538 M54.16 [id number] GHULAM BRUNNER [facility] Office [address] [place] [address] 7 06/18/2023 07:57:38 06/20/2023 13:28:54 Lumbar spondylosis 710772332 M47.896 Health Concerns Section Related Observation LastModified by Organization Detai ls LastModified Time None Recorded Concern Status LastModified by Organization Details LastModified Time None Recorded Advance Directives Directive None Recorded Payers Encounter Date Sequence Insurance Name Policy Number Policy Mcmullen Covered Member ID Mcmullen Member ID Guarantor Name 02/15/2023 1 [place] [id number] Dain Brewer [id number] Dain Brewer 03/26/2023 1 [place] [id number] Dain Brewer [id number] Dain Brewer 05/21/2023 1 [place] [id number] Dain Brewer [id number] Dain Brewer 06/18/2023 1 [place] [id number] Dain Brewer [id number] Dain Brewer Notes Date Note Type [...] as recommended by Dr. Brown. GHULAM BRUNNER [address] [place] [address], [phone], [facility] 02/15/2023 21:19:03 03/26/2023 [...] pressing on his rotator cuff. GHULAM BRUNNER [address] [place] [address], [phone], [facility] 03/26/2023 09:23:22 05/21/2023 [...] reports he is slower. He was in [place] and utilized a cart to walk around [facility] due to fatigue and pain. The leg pain is most concerning to him. He has noticed a recent change in his balance. He denies any right leg pain, numbness/tingling. He recalls prior lumbar surgery on 'L5' region and since has had residual lower back pain. GHULAM BRUNNER [address] [place] [address], [phone], [facility] 05/21/2023 09:50:18 06/18/2023 text/html Mr. Brewer presents via for imaging review. The back pain is constant. The hip/left leg pain has improved significantly. He reports the left leg is 'dragging' still but it is not worsening. This has been present for years, since his initial lumbar surgery. Denies any new numbness/tingling. GHULAM BRUNNER [address] [place] [address], [phone], [facility] 06/18/2023 08:53:32
--- OUTSIDE RECORDS SUMMARY | 2024-07-08 13:01 | XMS_ITS | Data Portability ---
Author Organization [facility], [place] [facility] Address [address] [place] [address] Care Team Providers Care Teacher Public Health Name Role Phone [facility] Primary Care Provi dee RADHA MILLER Primary Care Provider [phone] Assessment Encounter Date Assessment Date Assessment LastModified [...] sheath injection shoulders 2023 024 Idalia Daniel [address], [address], 4 09:08:34 Surgeries None recorded. Imaging XR, elbow, 3 or more view [address], [address], 5 07:58:34 Medication Orders None recorded. Patient TargetsNo targets recorded. Patient InstructionsNo instructions recorded. Reason for Referral None Reported. Results Created Date Observation Date Name Description Value Unit Range Abnormal Flag Note LastModifiedBy Organization Detail LastModifiedTime 01/03/20 24 01/03/2024 xr shoul dee 2 vw bilat [facility] Pt Name : CAROL GALVEZhey 1 - Date: 1950 Sex: M Locati on : [facility] Visit: [id number] Admit Date: 2023 Date of Servic e: 2023 Exam : XR SHOULD ER 2+ VW BILATE RAL Status : Final Order MD : Juli PAUL Tel#:[phone] CC Provid er:, ------ ------ ------ ------ [...] REPORT SIGNED BY: SCOTT CRAMER 11:09: 29 [facility] [address] [facility], [place], [address], 01/10/2024 09:37:50 06/24/19 25 elbow RT No observ ation record ed. [address], [address] 06/24/2024 12:19:49 06/24/19 25 XR, elbow , 3 or more view No observ ation record ed. [address], [address], 06/24/2024 12:19:06 Result Notes None recorded. Problems Name Problem SNOMED Code Status Onset Date Resolution Date Notes Provider Name and Address Organization Details Recorded Time Backache 713780641 Active 2009 Recorded 0 1:28PM by Yudelka Gavin Summary; Promoted; acuity set as * Not Available [facility] 7 01:32:31 History of hypertens ion 248689578 Active 2009 Recorded 0 1:29PM by Yudelka Gavin Summary; Promoted; acuity set as * Not Available [facility] 7 01:32:31 Wears glasses 708976101 Active 2009 Recorded 0 1:29PM by Yudelka Gavin Summary; Promoted; acuity set as * Not Available [facility] 7 01:32:31 Tendiniti s of long head of biceps brachii of left shoulder 720296604 Active 2022 SHAW PAUL MD [address] [place] [address], , [facility] 3 12:39:09 Rupture of rotator cuff of left shoulder 24279293977 713709 Active 2022 SHAW PAUL MD [address] [place] [address], , [facility] 3 12:39:10 History of operative procedure on shoulder 978865142 Active 2022 Left Shoulder Open excision of suprascap Lipoma ad open DCE. 03/14/23 GHULAM BOWDEN [address] [place] [address], , [facility] 3 10:44:32 Postopera tive care Active 2022 SHAW PAUL MD [address] [place] [address], , [facility] 3 20:50:25 Bilateral tendiniti s of long head of biceps brachii of shoulders 35242227732 969832 Active 2023 SHAW PAUL MD [address] [place] [address], , [facility] 4 12:00:56 Bilateral subacromi al bursitis of shoulders 65018648202 702081 Active 2023 Idalia Sanchez PA-C [address] [place] [address], , [facility] 4 13:00:14 Bilateral shoulder joint pain 53273804764 522186 Active 2023 Idalia Sanchez PA-C [address] [place] [address], , [facility] 4 11:35:24 Pain of right elbow joint 01250663882 660239 Active 2024 SHAW PAUL MD [address] [place] [address], , [facility] 5 19:38:01 Problem Notes None recorded. Procedures Surgical History Date Name Laterality Status Provider Name and Address Organization Details Recorded Time 03/28/20 24 Cardiac Surgery completed Oswaldo Montgomery [facility] 06/24/2024 12:54:03 02/05/20 24 Glenohumeral Injection completed Idalia Sanchez PA-C [address] [place], [address], [facility] 02/08/2024 11:33:11 01/18/20 24 Subacromial Injection completed Idalia Sanchez PA-C [address] [place], [address], [facility] 01/18/2024 13:00:57 03/14/20 23 complete repair of rotator cuff completed Kyle Luque [facility] 03/26/2023 13:05:37 surgical procedure on cervical spine completed Kyle Luque [place] [facility] 12/25/2022 11:15:24 operation on lumbar spine completed Kyle Luque [place] [facility] 12/25/2022 11:15:37 Imaging Results Imaging Date Name Status LastModified by Organiz ation Details LastModified Time 01/03/2024 xr shoulder 2 vw bilateral completed [facility] - [address], [place], [address], 01/10/2024 09:37:50 06/24/2024 elbow RT completed [facility] [address], [address] 06/24/2024 12:19:49 06/24/2024 XR, elbow, 3 or more view completed [address], [address], 06/24/2024 12:19:06 Procedure Notes None recorded. Medical Equipment None Reported. Allergies Allergen ID Allergen Name Allergen Category Reaction Reaction Severity Criticality Documentation Date Start Date Code Code System Note Provider Name and Address Organization Details Recorded Time 880035 Product containin g penicilli n (product) medicatio n Not available Not available Not available 07/10/20162009 48558 8001 SNOMED Comme nt: Recor ded 03/31 1:28P M by Wesly John ry; Gaurav junaid; Cory abdi ce:*; Not Available [facility] 7 22:33:20 Medications Name Sig [...] Updated DateTime 05/21/2023 187.96 cm 31.5 kg/m2 698518.13 g 0 Kyle Luque [facility] 05/21/2023 15:57:05 Date Recorded Body height Body mass index (BMI) Body weight Pain severity - 0-10 verbal numeric rating [Score] - Reported Provider Name and Address Organization Details Last Updated DateTime 01/03/2024 187.96 cm 31.5 kg/m2 921660.13 g 2 Mina Diane [facility] 01/03/2024 10:57:24 Date Recorded Body height Body mass index (BMI) Body weight Pain severity - 0-10 verbal numeric rating [Score] - Reported Provider Name and Address Organization Details Last Updated DateTime 01/18/2024 187.96 cm 31.5 kg/m2 181216.13 g 5 Oswaldo Montgomery [facility] 01/18/2024 11:36:56 Date Recorded Body height Body mass index (BMI) Body weight Pain severity - 0-10 verbal numeric rating [Score] - Reported Provider Name and Address Organization Details Last Updated DateTime 02/05/2024 187.96 cm 31.5 kg/m2 783606.13 g 5 Oswaldo Montgomery [facility] 02/05/2024 10:05:49 Date Recorded Body height Body mass index (BMI) Body weight Provider Name and Address Organization Details Last Updated DateTime 06/24/2024 187.96 cm 31.5 kg/m2 454634.13 g Oswaldo Montgomery [facility] 06/24/2024 12:53:56 Social History Question Answer Notes LastModified by Organizat ion Details LastModified Time Tobacco Smoking Status Former Smoker Oswaldo morales [facility] 06/24/2024 12:54:09 What Is Your Level Of Alcohol Consumption? Occasional [email or web address] Information not available 12/25/2022 Are You Deaf Or Do You Have Serious Difficulty Hearing? 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 Left [email or web address] Information not available 06/24/2024 How Much Tobacco Do You Smoke? No [email or web address] Information not available 06/24/2024 Do You Use Any Illicit Or Recreational Drugs? No [email or web address] Information not available 12/25/2022 Has Tobacco Cessation Counseling Been Provided? No [email or web address] Information not available 12/25/2022 Do You Or Have You Ever Used Any Other Forms Of Tobacco Or Nicotine? No [email or web address] Information not available 12/25/2022 Sex: Unknown Functional Status Question Answer Note LastModified by Organizat ion Details LastModified Time What is your exercise level? Occasional [email or web address] Information not available 06/24/2024 Mental Status None [...] N Artificial Joints N Thyroid Problems N Depression N Lung Disease N Pacemaker N Anemia N Back Pain Y Hearing Impairment Y Anesthesia Complications N Heart Attack (AK) N Headaches/Migraines N Deep Vein Thrombosis N [...] SNOMED-CT Code Diagnosis ICD10 Code Diagnosis Note [id number] SHAW PAUL MD [facility] [address] [facility] [address] [place] [address] 12/25/2022 11:05:59 12/25/2022 12:20:50 Rupture of rotator cuff of left shoulder 7739425733 4425282 M75.102 Tendinitis of long head of biceps brachii of left shoulder 021444241 M75.22 [id number] MD CAT Owens [address] [address] 01/09/2023 09:45:33 01/09/2023 10:30:48 Pain of right wrist 9434062846 38094 M25.531 Numbness of hand 7239958 04 R20.0 [id number] MD CAT SERRATO [address] [address] 01/29/2023 07:42:44 01/30/2023 18:53:11 Rupture of rotator cuff of left shoulder 6838358858 6587866 M75.102 Lipoma of shoulder 61534 4000 D17.22 I spent a total of [...] the plan of care of this patient. [id number] MD CAT SERRATO [address] [address] 02/26/2023 07:36:05 02/28/2023 15:44:23 Rupture of rotator cuff of left shoulder 7093146512 0066896 M75.102 Lipoma of shoulder 71925 4000 D17.22 I spent a total of [...] the plan of care of this patient. [id number] MD CAT Owens [address] [address] 03/20/2023 11:40:57 03/20/2023 13:11:37 Pain of right wrist 7879622148 60825 M25.531 Numbness of hand 5020665 04 R20.0 341004 MD CAT SERRATO [address] [address] 03/26/2023 12:55:25 03/26/2023 14:21:06 Postoperative care 384309469 Z48.89 [id number] MD CAT SERRATO [facility] [address] [facility] [place] [address] 05/21/2023 07:53:11 05/31/2023 08:46:36 Postoperative care 055035247 Z48.89 [id number] MD CAT SERRATO [facility] [address] [facility] [place] [address] 01/03/2024 10:43:33 01/03/2024 11:23:45 Bilateral tendinitis of long head of biceps brachii of shoulders 8125702077 3343821 M75.21 M75.22 [id number] Idalia Sanchez PA-C [address] [address] 01/18/2024 10:48:55 01/18/2024 14:05:27 Bilateral subacromial bursitis of shoulders 5168722140 7881194 M75.51 M75.52 [id number] Idalia Sanchez PA-C [address] [address] 02/05/2024 08:45:27 02/05/2024 10:48:57 Bilateral shoulder joint pain 5199288864 4658465 M25.511 M25.512 [id number] MD CAT SERRATO [address] [address] 06/24/2024 12:08:22 06/24/2024 13:57:09 Pain of right elbow joint 6217418590 2261288 M25.521 Health Concerns Section Related Observation LastModified by Organization Detai ls LastModified Time None Recorded Concern Status LastModified by Organization Details LastModified Time None Recorded Advance Directives Directive None Recorded Payers Encounter Date Sequence Insurance Name Policy Number Policy Mcmullen Covered Member ID Mcmullen Member ID Guarantor Name 05/21/2023 1 [place] [id number] Dain [id number] 01/03/2024 1 [employer] [employer] ([place]O) [id number] Dain [id number] 01/18/2024 1 [employer] [employer] [employer] [place]) [id number] Dain Brewer [id number] 02/05/2024 1 [employer] [place]: [employer] [employer] ([place]) [id number] Dain Brewer [id number] 06/24/2024 1 [employer] [place]: [employer] ([place]) [id number] Dain Brewer [id number] Notes Date Note Type [...] as needed. All questions were answered. SHAW PAUL MD [address] [place] [address], [address], [facility] 05/24/2023 21:17:06 01/03/2024 [...] time. His tenderness is over the biceps. [place]'s test is moderate. Comprehensive rotator cuff testing statically and dynamically shows no deficit. His contralateral shoulder the right shoulder shows a similar exam. The AC joint is nontender. Somewhat prominent but negative crossover test. No pain with passive motion. Static and dynamic functional rotator cuff testing shows no deficit. Negative empty can sign. Some discomfort over the bicipital groove. Mildly positive [place]'s test. Distally he is neurologically intact. This does not appear to be coming from the cervical spine. Bilateral x-rays are obtained at [facility]. These do not demonstrate significant arthrosis. There [...] will stay in touch. SHAW PAUL MD [address] [place] [address], [address], [facility] 01/04/2024 12:01:20 01/18/2024 text/html Dain presents to clinic today for bilateral ultrasound-guided shoulder injections. He has been dealing with pain for over 6 months now. The pain is affecting his ability to lay on his back at night. He describes the pain over the anterior portion of the shoulder bilaterally Idalia Sanchez PA-C [address] [place] [address], [address], [facility] 01/18/2024 13:01:01 02/05/2024 [...] to 4 weeks. Idalia Sanchez PA-C [address] [place], [address], [facility] 02/08/2024 11:36:08 06/24/2024 [...] happy to assist. SHAW PAUL MD [address] [place], [address], [facility] 06/24/2024 19:38:24
--- OUTSIDE RECORDS SUMMARY | 2024-07-08 13:01 | XMS_ITS ---
Author Organization [facility] Address [address] [place] [address] Care Team Providers Care Net Sql Developer Name Role Phone Janay Peters DO, Diana Primary Care Provider + Active Problems Problem Noted Date Diagnosed Date NSTEMI (non-ST elevated myocardial infarction) 1 07/08/2023 Assessment & Plan (05/07/2024 9:55 PM EST): 03/24/24 [facility] hospitalization for chest pain and VILLAREAL. Troponins were flat. 03/28 CABG x 3 with post op Afib. Plavix and aspirin for 1 year for NSTEMI. Will be starting cardiac rehab in May. Will be seeing sanitation superintendent Dr. Castro on May 02. 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 New onset a-fib (CMS/HCC) 05/07/2024 Assessment & Plan (05/07/2024 9:55 PM EST): Post CABG Afib. Continue beta rosalind, eliquis as prescribed by sanitation superintendent. Emphysema of lung 05/07/2024 Assessment & Plan [...] TotalDLP 59 mGy 59 mGy 0 mGy [id number] 0.6 mSv 0.6 mSv 0 mSv CTDIvol Max 1.6 mGy 1.6 mGy 0 mGy CTDIvol Min 1.6 mGy 1.6 mGy 0 mGy Resolved Problems Problem Noted Date Diagnosed Date Resolved Date COVID-19 05/16/2023 05/07/2024 Former smoker 05/16/2023 01/17/2024
--- OUTSIDE RECORDS SUMMARY | 2024-07-08 13:02 | XMS_ITS | Clinical Summary ---
Author Organization [facility] Address [address] [place] [address] Care Team Providers Care Central Office Repairer Supervisor Name Role Phone Janay Peters DO, Diana [...] cardiac rehab in May. Will be seeing experimental rocketsled mechanic Dr. Castro on May 02. 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 New onset a-fib (CMS/HCC) 05/07/2024 Assessment & Plan (05/07/2024 9:55 PM EST): Post CABG Afib. Continue beta rosalind, eliquis as prescribed by experimental rocketsled mechanic. Emphysema of lung 05/07/2024 Assessment & Plan [...] Description 04/24/2024 9:00 AM EST Office Visit [address] Department [address] [place] [address] Patrica Gustafson V, NSTEMI (non-ST elevated myocardial infarction) (HCC) (Primary Dx); S/P CABG x 3; New onset a-fib (CMS/HCC) (HCC); Pulmonary emphysema, unspecified emphysema type (HCC) 04/21/[address] [address] Patrica Gustafson DO Surgery Follow up from [...] 23 Valent 04/05/2015 Pneumococcal conjugate PCV20 ,polysaccharide ORY913 conjugate, adjuvant, PF (Prevnar 20) 02/28/2022 Tetanus [...] Date Smoking Tobacco: Every Day Cigarettes 0.5 62.2 Started: 1961 Passive Smoke Exposure: Past Smokeless Tobacco: Never [...] Description 07/17/2024 3:30 PM EST Office Visit [facility] [address] [facility] Family Practice Department [address] [place] [address] Patrica Gustafson DO [address] [place] [address] Health Maintenance Due Date Last Done Comments [...] complete this topic Procedures * Due to [place] state law, this organization might not be [...] to Health Maintenance Results * Due to [place] state law, this organization might not be [...] obtain the completed interpretation. ? Workstation ID: [id number] Up-to-date CT equipment and radiation dose reduction [...] Mild degenerative vertebral disease. Resulting Agency Comment [id number] Procedure Note Micah Ramos MD PhD - [...] possible to obtain thecompleted interpretation. Workstation ID: [id number] Up-to-date CT equipment and radiation dose reduction techniques wereemployed. CTDIvol: 1.6 mGy. DLP: 59 mGy-cm. us Patrica Immenhausen V, DO IMG CT PROCEDURES Final Result * Comprehensive Metabolic Panel (07/13/2023 8:07 AM EST) NA 137 136 - 145 mmol/L 07/13/2023 2:28 PM EST [facility] K 4.7 3.5 - 5.1 mmol/L 07/13/2023 2:28 PM EST [facility] Cl 101 98 - 109 mmol/L 07/13/2023 2:28 PM EST [facility] CO2 25 23 - 32 mmol/L 07/13/2023 2:28 PM EST [facility] Anion Gap 16 >=0 07/13/2023 2:28 PM EST [facility] Glucose 95 60 - 99 mg/dL 07/13/2023 2:28 PM EST [facility] Creatinine 0.99 0.50 - 1.12 mg/dL 07/13/2023 2:28 PM EST [facility] Calcium 9.7 8.4 - 10.4 mg/dL 07/13/2023 2:28 PM EST [facility] Total Protein 7.3 6.6 - 8.7 g/dL 07/13/2023 2:28 PM EST [facility] Albumin 4.4 3.5 - 5.0 g/dL 07/13/2023 2:28 PM EST [facility] Bilirubin, Total 0.5 0.2 - 1.2 mg/dL 07/13/2023 2:28 PM EST [facility] Alkaline Phosphatase 86 40 - 129 U/L 07/13/2023 2:28 PM EST [facility] AST 37 0 - 40 U/L 07/13/2023 2:28 PM EST [facility] ALT 28 <=41 U/L 07/13/2023 2:28 PM EST [facility] BUN 14 8 - 23 mg/dL 07/13/2023 2:28 PM EST [facility] eGFR 82 >=60 mL/min/1. 73m2 07/13/2023 2:28 PM EST [facility] Comment:The estimated glomer ular filtration [...] - 4.2 g/dL 07/13/2023 2:28 PM EST [facility] A/G Ratio 1.5 1.5 - 3.0 07/13/2023 2:28 PM EST [facility] Blood Structure of peripheral vein / Unknown Venipuncture / Unknown 07/13/2023 8:07 AM EST 07/13/2023 12:43 PM EST us Patrica Gustafson V, LAB BLOOD ORDERABLES Fin al Result [facility] [address] [place] [id number], * Hepatitis Panel, Acute (01/01/2023 9:24 AM [...] OF RADIOLOGY Patient: ALISHA CHAVIS ?Unit #: [id number] Ordering MD: CIRO ORONA D.O ?: 1950 [...] DEPARTMENTOF RADIOLOGY Lyssa t: ALISHA CHAVIS Unit #:[id number] Ordering MD: CIRO ORONA D.O :1950 Procedure: US Aorta Screening Age:69 Location: [facility] ExamDate: 12/10/19 Status: REG CLIRoom/Bed: Primary MD: CIRO ORONA D.O PatientAcct #: [id number] Order:[id number] Additional Copy: CIRO ORONA D.O - [...] Most Recently Relevant to Health Maintenance Insurance [facility] PPO/EPO Advance Directives Documents on File Type Date Recorded Patient Corsage Maker Expl [facility] Care Proxy 09/29/2022 06/30/2022 Care Teams Central Office Repairer Supervisor Relationship Specialty Start Date End Date Patrica Gustafson DO [address] [place] [address] PCP - General Family Medicine 08/17/23
--- OUTSIDE RECORDS SUMMARY | 2024-07-08 13:02 | XMS_ITS | Referral Summary ---
Author Organization [facility] Address [address] [place] [address] Care Team Providers Care Registered Medical Assistant Name Role Phone Janay Peters DO, Diana Primary Care Provider + Encounters Date Type Department Care Team Description 04/24/2024 9:00 AM EST Office Visit [address] Family Practice Department [address] [place] [address] [phone] Patrica Gustafson DO NSTEMI (non-ST elevated myocardial infarction) (HCC) (Primary Dx); S/P CABG x 3; New onset a-fib (CMS/HCC) (HCC); Pulmonary emphysema, unspecified emphysema type (HCC) 04/21/[address] Department [address] [place] [address] Patrica Gustafson DO Surgery Follow up from [...] & Plan (05/07/2024 9:55 PM EST): 03/24/24 [facility] hospitalization for chest pain and VILLAREAL. Troponins were flat. 03/28 CABG x 3 with post op Afib. Plavix and aspirin for 1 year for NSTEMI. Will be starting cardiac rehab in May. Will be seeing corner former Dr. Castro on May 02. 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 New onset a-fib (CMS/HCC) 05/07/2024 Assessment & Plan (05/07/2024 9:55 PM EST): Post CABG Afib. Continue beta rosalind, eliquis as prescribed by corner former. Emphysema of lung 05/07/2024 Assessment & Plan [...] 23 Valent 04/05/2015 Pneumococcal conjugate PCV20 ,polysaccharide [id number] conjugate, adjuvant, PF (Prevnar 20) 02/28/2022 Tetanus Toxoid, Reduced Diph theria Toxoid, and Acellular Pertussis Vaccine, Adsorbed 01/04/2021,02/08/2010 Tetanus and Diphtheria Toxoi ds, Adsorbed, Preservative Free (2 Lf of Tetanus Toxoid and 2 Lf of Diphtheria Toxoid) 07/12/1997 Zoster Vaccine Recombinant 05/29/2022,03/14/2022 Zoster Vaccine, Live 04/18/2013 Social History Tobacco Use Types Packs/Day Years Used Date Smoking Tobacco: Every Day Cigarettes 0.5 62.2 Started: 1962 Passive Smoke Exposure: Past Smokeless [...] Description 07/17/2024 3:30 PM EST Office Visit [facility] [address] [facility] Family Practice Department [address] [place] [phone] Patrica Gustafson V, [address] [place] [address] Procedures * Due to [place] state law, this organization might not be [...] to Health Maintenance Results * Due to [place] state law, this organization might not be [...] obtain the completed interpretation. ? Workstation ID: [id number] Up-to-date CT equipment and radiation dose reduction [...] Mild degenerative vertebral disease. Resulting Agency Comment [id number] Procedure Note Micah Ramos MD PhD - [...] possible to obtain thecompleted interpretation. Workstation ID: [id number] Up-to-date CT equipment and radiation dose reduction techniques wereemployed. CTDIvol: 1.6 mGy. DLP: 59 mGy-cm. us Patrica Immenhausen V, DO IMG CT PROCEDURES Final Result * Comprehensive Metabolic Panel (07/13/2023 8:07 AM EST) NA 137 136 - 145 mmol/L 07/13/2023 2:28 PM EST [facility] K 4.7 3.5 - 5.1 mmol/L 07/13/2023 2:28 PM EST [facility] Cl 101 98 - 109 mmol/L 07/13/2023 2:28 PM EST [facility] CO2 25 23 - 32 mmol/L 07/13/2023 2:28 PM EST [facility] Anion Gap 16 >=0 07/13/2023 2:28 PM EST [facility] Glucose 95 60 - 99 mg/dL 07/13/2023 2:28 PM [facility] Creatinine 0.99 0.50 - 1.12 mg/dL 07/13/2023 2:28 PM EST [facility] Calcium 9.7 8.4 - 10.4 mg/dL 07/13/2023 2:28 PM EST [facility] Total Protein 7.3 6.6 - 8.7 g/dL 07/13/2023 2:28 PM EST [facility] Albumin 4.4 3.5 - 5.0 g/dL 07/13/2023 2:28 PM EST [facility] Bilirubin, Total 0.5 0.2 - 1.2 mg/dL 07/13/2023 2:28 PM EST [facility] Alkaline Phosphatase 86 40 - 129 U/L 07/13/2023 2:28 PM EST [facility] AST 37 0 - 40 U/L 07/13/2023 2:28 PM EST [facility] ALT 28 <=41 U/L 07/13/2023 2:28 PM EST [facility] BUN 14 8 - 23 mg/dL 07/13/2023 2:28 PM EST [facility] eGFR 82 >=60 mL/min/1. 73m2 07/13/2023 2:28 PM EST [facility] Comment:The estimated glomer ular filtration [...] - 4.2 g/dL 07/13/2023 2:28 PM EST [facility] A/G Ratio 1.5 1.5 - 3.0 07/13/2023 2:28 PM EST [facility] Blood Structure of peripheral vein / Unknown Venipuncture / Unknown 07/13/2023 8:07 AM EST 07/13/2023 12:43 PM EST us Patrica Gustafson V, DO LAB BLOOD ORDERABLES Fin al Result [facility] [address] [place] [address], * Hepatitis Panel, Acute (01/01/2023 9:24 AM [...] OF RADIOLOGY Patient: ALISHA CHAVIS ?Unit #: [id number] Ordering MD: CIRO ORONA D.O ?: 1950 [...] DEPARTMENTOF RADIOLOGY Lyssa t: ALISHA CHAVIS Unit #:[id number] Ordering MD: CIRO ORONA D.O :1950 Procedure: US Aorta Screening Age:69 Location: [facility] ExamDate: 12/10/19 Status: REG [facility]/Bed: Primary MD: CIRO ORONA D.O PatientAcct #: [id number] Order:[id number] Additional Copy: CIRO ORONA D.O - [...] Most Recently Relevant to Health Maintenance Insurance [facility] PPO/EPO Advance Directives Documents on File Type Date Recorded Patient Front Desk Manager Expl [facility] Care Proxy 09/29/2022 06/30/2022 Care Teams Registered Medical Assistant Relationship Specialty Start Date End Date Patrica Gustafson DO [facility] [place] [address] PCP - General Family Medicine 08/17/23
== END 2024-07-08 11:36 | disposition home or self-care (01) ==
PROVIDERS: PCP Family Medicine; Visit Provider Hospitalist
DX: J43.2 Centrilobular emphysema (principal); R06.09 Other forms of dyspnea; G47.33 Obstructive sleep apnea (adult) (pediatric); J90 Pleural effusion, not elsewhere classified; I25.10 Atherosclerotic heart disease of native coronary artery without angina pectoris
CPT/HCPCS: 99214

== ENCOUNTER → 2024-07-08 10:49 | Outpatient (BNVA) | payer BC, SELFPAY | PROVIDERS: PCP Family Medicine; Visit Provider Hospitalist ==

== ENCOUNTER 2024-07-28 13:04 | Outpatient (REF) | payer BC, SELFPAY ==
--- NOTE | ~2024-07-28 | XR_ITS ---
EXAMINATION: XR CHEST 2 VIEWS HISTORY: R06.09 - Other forms of dyspnea COMPARISON: There are no prior studies for comparison. FINDINGS: PA and lateral views of the chest are submitted. The lungs are expanded and clear. There is no pleural effusion, pneumothorax, or pulmonary vascular congestion. The heart is mildly enlarged. The patient is status post median sternotomy and CABG. There is degenerative disc disease of the spine. The patient is status post lower cervical fusion. XR/XR chest 2V IMPRESSION: Mild cardiomegaly. The lungs are clear. Electronically signed by: Ganesh Betancourt MD 07/29/2024 07:41 AM EDT
--- OUTSIDE RECORDS SUMMARY | 2024-07-28 15:16 | XMS_ITS | Clinical Summary ---
Author Organization [facility] Address [address] [place] [address] Care Team Providers Care Automatic Outsole Cutter Name Role Phone Janay Peters DO, Diana [...] Take 5 mg by mouth. 04/05/2024 Active fluticasone-umec lidinium-vilante rol (Trelegy Ellipta) 100-62.5-25 mcg blister with device Inhale 1 puff by mouth once a day. Active albuterol (PROAIR HFA,VENTOLIN HFA) 90 mcg inhaler SMARTSI Puff(s) By Mouth Every 6 Hours PRN 07/08/2024 Active Active Problems Problem Noted Date Diagnosed Date NSTEMI (non-ST elevated myocardial infarction) 1 07/08/2023 Assessment & Plan (07/17/2024 3:28 PM EST): Currently asymptomatic. 03/24/24 [facility] hospitalization for chest pain and VILLAREAL. Troponins were flat. 03/28 CABG x 3 with post op Afib. Plavix and aspirin for 1 year for NSTEMI. Will be starting cardiac rehab in May. Will be seeing electrical appliance mechanic Dr. Castro in October. Assessment & Plan (05/07/2024 9:55 PM EST): 03/24/24 [facility] hospitalization for chest pain and VILLAREAL. Troponins were flat. 03/28 CABG x 3 with post op Afib. Plavix and aspirin for 1 year for NSTEMI. Will be starting cardiac rehab in May. Will be seeing electrical appliance mechanic Dr. Castro on May 02. 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 Assessment & Plan (05/07/2024 9:55 PM EST): As above. New onset a-fib (CMS/HCC) 05/07/2024 Assessment & Plan (05/07/2024 9:55 PM EST): Post CABG Afib. Continue beta rosalind, eliquis as prescribed by electrical appliance mechanic. Emphysema of lung 05/07/2024 Assessment & Plan (07/17/2024 3:28 PM EST): 01/2024 CT chest showed evidence of pulmonary emphysema but no suspicious pulmonary nodules seen. Recommend pulmonary follow up and repeat CT chest in 12 months. Assessment & Plan (05/07/2024 9:55 PM EST): [...] Encounters Date Type Department Care Team Description 07/17/2024 3:00 PM EST Office Visit [address] Family Practice Department [address] [place] [phone] Patrica Gustafson V, DO Routine medical exam (Primary Dx); Screening for colon cancer; NSTEMI (non-ST elevated myocardial infarction) (HCC); S/P CABG x 3; Pulmonary emphysema, unspecified emphysema type (HCC) from Last 3 Months Immunizations Immunization Administration [...] 23 Valent 04/05/2015 Pneumococcal conjugate PCV20 ,polysaccharide [id number] conjugate, adjuvant, PF (Prevnar 20) 02/28/2022 Tetanus [...] drink = 0.6 oz pur e alcohol) [facility] Utilities Answer Date Recorded In the past 12 months has e [employer], [employer], or water [employer] threatened to shut off services in your home? No 07/17/2024 Hunger Vital Sign Answer Date Recorded Within the past 12 months, y ou worried that your food would run out before you got the money to buy more. Never true 07/18/19 25 Within the past 12 months, t he food you bought just didn't last and you didn't have money to get more. Never true 07/17/2024 Transportation Answer Date Recorded In the past 12 months, has l ack of reliable transportation kept you from medical appointments, meetings, work or from getting things needed for daily living? No 07/17/2024 Housing Answer Date Recorded Housing Risk Low 2 07/17/2024 Housing Risk Medium Not on file 07/17/2024 Housing Risk High Not on file 07/17/2024 What is your living situation today? [facility] 07/17/2024 Sex and Gender Information Value Date Recorded Sex Assigned at Male 07/07/2023 11:32 AM EST Legal Sex Male 7:24 PM EDT Gender Identity Male 07/07/2023 11:32 AM EST Sexual Orientation Straight 07/07/2023 11 :32 AM EST Last Filed Vital Signs Vital Sign Reading Time Taken Comments Blood Pressure 130/80 07/17/2024 2:48 PM EST Pulse 77 07/17/2024 2:48 PM EST Temperature 35.6 ??C (96 ??F) 07/17/2024 2:48 PM EST Respiratory Rate - - Oxygen Saturation 93% 07/17/2024 2:48 PM EST Inhaled Oxygen Concentration - - Weight 112.4 kg (247 lb 12.8 oz) 07/17/2024 2:48 PM EST Height 182.9 cm (6') 07/17/2024 2:48 PM EST Body Mass Index 33.61 07/17/2024 2:48 PM EST Plan of Treatment Upcoming Encounters Date Type Department Care Team (Late st Contact Info) Description 01/20/2025 3:30 PM EDT Office Visit [address] Family Practice Department [address] [place] [phone] Patrica Gustafson V, DO [address] [place] [address] 07/23/2025 3:30 PM EDT Office Visit [address] Family Practice Department [address] [place] [phone] Patrica Gustafson V, DO [address] [place] [address] Health Maintenance Due Date Last Done Comments Cologuard 1950 FOBT / Fit Test 1950 Sigmoidoscopy 1950 RSV Vaccine (60+ years old and patients) (1 - Risk 60-74 years 1-dose series) 2012 Basic Metabolic Panel 07/12/2024 07/28/2024 , 07/13/2023, 01/01/2023, Additional history exists COVID-19 Vaccine ( - season) 2024 05/22/2021, 11/27/2020 Postponed from 01/13/2024 (Patient Declined) CT Lung Cancer Screening (12 months, previous LungRADS 1 or 2) 02/07/2025 02/08/2024, 02/03/2022, 02/01/2021 Depression Screening and Follow-Up 07/17/2025 07/17/2024 Social Drivers of Health Annual Screening 07/17/2025 07/17/2024 Colon Cancer Screening 02/24/2030 Colonoscopy 02/24/2030 02/25/2020, 09/27/2018 DTaP,Tdap,and Td Vaccines (3 - Td or Tdap) 01/04/2031 01/04/2021, 02/08/2010, 07/12/1997 Abdominal Aortic Aneurysm (AAA) Screening Completed 12/10/2019 Pneumococcal Vaccine: 50+ Years Completed 02/28/2022, 06/14/2020, 04/05/2015 Zoster Vaccines Completed 05/29/2022, 1105/2021, 04/18/2013 Hepatitis C Screening Completed 01/01/2023, 023 Influenza Vaccine Completed 01/17/2024, , 02/13/2022, Additional history exists Alcohol/Substance Use Screening Completed 07/17/2024 Health Care Proxy Review Completed 07/17/2024, 06/15 Hepatitis B Vaccines Aged Out No long er eligible based on patient's age to complete this topic Procedures * Due to [place] state law, this organization might not be sharing negative HIV tests. Procedure Name Priority Date/Time Associated Diagnosis Comments PSA Routine 07/28/2024 8:04 AM EDT Routine medical exam LIPID PANEL Routine 07/28/2024 8:04 AM EDT Routine medical exam COMPREHENSIVE METABOLIC PANEL Routine 07/28/2024 8:04 AM EDT Routine medical exam CBC Routine 07/28/2024 8:04 AM EDT Routine medical exam CT LUNG CANCER SCREENING 12 MONTHS ANNUAL FOLLOW UP Routine 02/08/2024 2:04 PM EDT Cigarette nicotine dependence without complication HEPATITIS PANEL, ACUTE Routine 01/01/2023 9:24 AM EDT US ABDOMINAL AORTA Routine 12/10/2019 8: 16 AM EDT HM COLONOSCOPY 09/27/2018 8:43 AM EDT from Last 3 Months or Most Recently Relevant to Health Maintenance Results * Due to [place] state law, this organization might not be sharing negative HIV tests. * CBC (07/28/2024 8:04 AM EDT) WBC 8.2 4.8 - 10.8 10*3/uL 07/28/2024 2:34 PM EDT [facility] RBC 5.09 4.70 - 6.10 10*6/uL 07/28/2024 2:34 PM EDT [facility] Hemoglobin 15.2 13.7 - 16.5 g/dL 07/28/2024 2:34 PM EDT [facility] Hematocrit 46.1 40.5 - 48.5 % 07/28/2024 2:34 PM EDT [facility] MCV 90.6 80.0 - 94.0 fL 07/28/2024 2:34 PM EDT [facility] MCH 29.9 26.0 - 34.0 pg 07/28/2024 2:34 PM EDT [facility] MCHC 33.0 31.0 - 36.0 g/dL 07/28/2024 2:34 PM EDT [facility] RDW 13.1 12.0 - 15.0 % 07/28/2024 2:34 PM EDT [facility] Platelets 239 140 - 440 10*3/uL 07/28/2024 2:34 PM EDT [facility] MPV 11.1 9.4 - 12.4 fL 07/28/2024 2:34 PM EDT [facility] RDW Standard Deviation 43.7 35.1 - 43.9 fL 07/28/2024 2:34 PM EDT [facility] Blood Structure of peripheral vein / Unknown Venipuncture / Unknown 07/28/2024 8:04 AM EDT 07/28/2024 1:01 PM EDT Patrica Immenhausen V, DO LAB BLOOD ORDERABLES Fin al Result Performing Organization Address City/[facility] Co de Phone Number [facility] [address] [address], [place] [phone] * PSA (07/28/2024 8:04 AM EDT) PSA 1.850 <=4.000 ng/mL 07/28/2024 3:06 PM EDT [facility] Blood Structure of peripheral vein / Unknown Venipuncture / Unknown 07/28/2024 8:04 AM EDT 07/28/2024 1:01 PM EDT Patrica Immenhausen V, DO LAB BLOOD ORDERABLES Fin al Result Performing Organization Address City/[facility] Co de Phone Number [facility] [address] [address], [place] [phone] * Lipid panel (07/28/2024 8:04 AM EDT) Cholesterol 128 mg/dL 07/28/2024 3:06 PM EDT [facility] Comment: DESIRABLE: <200 mg/dL BORDERLINE HIGH: 200-239 mg/dL HIGH: >239 mg/dL Triglycerides 68 mg/dL 07/28/2024 3:06 PM EDT [facility] Comment: NORMAL: <150 mg/dL BORDERLINE HIGH: 150-199 mg/dL HIGH: 200-499 mg/dL VERY HIGH >499 mg/dL Cholesterol, HDL 45 mg/dL 07/29/19 3:06 PM EDT [facility] Comment: DESIRABLE: >60 mg/dL BORDERLINE: 40-59 mg/dL UNDESIRABLE: <40 mg/dL LDL Cholesterol 69 mg/dL 3:06 PM EDT [facility] Comment: OPTIMAL: <100 mg/dL NEAR OPTIMAL: <130 mg/dL BORDERLINE HIGH: 130-159 mg/dL HIGH: 160-189 mg/dL VERY HIGH: >189 mg/dL VLDL 13.6 mg/dL 07/28/2024 3:06 PM EDT [facility] Cholesterol/HDL Ratio 2.8 07/28/2024 3:06 PM EDT [facility] Blood Structure of peripheral vein / Unknown Venipuncture / Unknown 07/28/2024 8:04 AM EDT 07/28/2024 1:01 PM EDT us Patrica Meltonenhnusrat V, DO LAB BLOOD ORDERABLES Fin al Result Performing Organization Address City/State/[facility] Co de Phone Number [facility] [address] [place] [address], [place] [phone] * Comprehensive Metabolic Panel (07/28/2024 8:04 AM EDT) NA 140 136 - 145 mmol/L 07/28/2024 3:06 PM EDT [facility] K 4.5 3.5 - 5.1 mmol/L 07/28/2024 3:06 PM EDT [facility] Cl 104 98 - 109 mmol/L 07/28/2024 3:06 PM EDT [facility] CO2 24 22 - 32 mmol/L 07/28/2024 3:06 PM EDT [facility] Anion Gap 17 >=0 07/28/2024 3:06 PM EDT [facility] Glucose 89 60 - 99 mg/dL 07/28/2024 3:06 PM EDT [facility] Creatinine 0.97 0.50 - 1.12 mg/dL 07/28/2024 3:06 PM EDT [facility] Calcium 9.6 8.4 - 10.4 mg/dL 07/28/2024 3:06 PM EDT [facility] Total Protein 6.8 6.6 - 8.7 g/dL 07/28/2024 3:06 PM EDT [facility] Albumin 4.2 3.5 - 5.0 g/dL 07/28/2024 3:06 PM EDT [facility] Bilirubin, Total 0.4 0.2 - 1.2 mg/dL 07/28/2024 3:06 PM EDT [facility] Alkaline Phosphatase 111 40 - 129 U/L 07/28/2024 3:06 PM EDT [facility] AST 37 0 - 40 U/L 07/28/2024 3:06 PM EDT [facility] ALT 25 <=41 U/L 07/28/2024 3:06 PM EDT [facility] BUN 15 8 - 23 mg/dL 07/28/2024 3:06 PM EDT [facility] eGFR 83 >=60 mL/min/1. 73m2 07/28/2024 3:06 PM EDT [facility] Comment:The estimated glomer ular filtration [...] in Diagnosing Kidney Disease . Globulin, Total 2.6 2.1 - 4.2 g/dL 07/28/2024 3:06 PM EDT [facility] A/G Ratio 1.6 1.5 - 3.0 07/28/2024 3:06 PM EDT [facility] Blood Structure of peripheral vein / Unknown Venipuncture / Unknown 07/28/2024 8:04 AM EDT 07/28/2024 1:01 PM EDT us Patrica Carrilloclaudio V, DO LAB BLOOD ORDERABLES Fin al Result [facility] [address] [facility] [address] [place] [address], [place] [phone] * CT Lung Cancer Screening 12 Months [...] obtain the completed interpretation. ? Workstation ID: [id number] Up-to-date CT equipment and radiation dose reduction [...] Mild degenerative vertebral disease. Resulting Agency Comment [id number] Procedure Note Micah Ramos MD PhD - [...] possible to obtain thecompleted interpretation. Workstation ID: [id number] Up-to-date CT equipment and radiation dose reduction techniques wereemployed. CTDIvol: 1.6 mGy. DLP: 59 mGy-cm. us Patrica Immenhausen V, DO IMG CT PROCEDURES Final Result * Hepatitis Panel, Acute (01/01/2023 9:24 AM [...] OF RADIOLOGY Patient: ALISHA CHAVIS ?Unit #: [id number] Ordering MD: CIRO ARITA D.O ?: 1950 Procedure: US Aorta Screening ? Age: 69 Location: [facility] ? Exam Date: 12/10/19 Status: REG CLI ? Room/Bed: Primary MD: CIRO ARITA D.O ? Patient ?Order: USVASAOSC Additional Copy: ??CIRO ARITA D.O - INDICATION: Smoker question aneurysm TECHNIQUE: [...] POI: NICOLA Marsh ELECTRONICALLY SIGNED BY: ??BOSTON ORELLANA MD 12/10/2019 9:24 AM Procedure Note [place] Orellana W - 02/08/2023 DEPARTMENTOF RADIOLOGY Lyssa t: ALISHA CHAVIS Unit #:[id number] Ordering MD: CIRO ARITA D.O :1950 Procedure: US Aorta Screening Age:69 Location: [facility] ExamDate: 12/10/19 Status: [facility]: Primary MD: CIRO ARITA D.O PatientAcct #: [id number] Order:USVASAOSC Additional Copy: CIRO ARITA D.O - INDICATION: Smoker question aneurysm TECHNIQUE: [...] POI: NICOLA Marsh ELECTRONICALLY SIGNED BY: BOSTON ORELLANA MD 12/10/2019 9:24 AM us Ciro Arita DO IMG US PROCEDURES Final Result * Colonoscopy (09/27/2018 8:43 AM EDT) us Onbase Scan [facility] Final Resu lt from Last 3 Months or Most Recently Relevant to Health Maintenance Insurance [facility] OUT OF STATE PPO Advance Directives Documents on File Type Date Recorded Patient 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 [address] PCP - General Family Medicine 08/17/23
--- OUTSIDE RECORDS SUMMARY | 2024-07-28 15:16 | XMS_ITS | Data Portability ---
Author Organization [facility], [place] [facility] Address [address] [place] [address] Care Team Providers Care Wholesale And Retail Merchant Name Role Phone [facility] Primary Care Provi dee RADHA MILLER Primary Care Provider [phone] Assessment Encounter Date Assessment Date Assessment LastModified [...] bilat biceps sheath injection shoulders 2023 024 [email or web address] Idalia Houston [address], [address], 4 09:08:34 Surgeries None recorded. Imaging XR, elbow, 3 or more view [email or web address], [address], 5 07:58:34 Medication Orders None recorded. Patient TargetsNo targets recorded. Patient InstructionsNo instructions recorded. Reason for Referral None Reported. Results Created Date Observation Date Name Description Value Unit Range Abnormal Flag Note LastModifiedBy Organization Detail LastModifiedTime 01/03/20 24 01/03/2024 xr shoul dee 2 vw bilat [facility] Pt Name : CAROL GALVEZhey 1 - Date: 1950 Sex: M Locati on : [facility]XR[facility] Visit: [id number] Admit Date: 2023 Date of Servic e: 2023 Exam : XR SHOULD ER 2+ VW BILATE RAL Status : Final Order MD : Juli PAUL Tel#:[phone] CC Provid er:, ------ ------ ------ ------ [...] REPORT SIGNED BY: SCOTT CRAMER 11:09: 29 [facility] - Rad [address] [facility], [place], [address], 01/10/2024 09:37:50 06/24/19 25 elbow RT No observ ation record ed. [address], [address] 06/24/2024 12:19:49 06/24/19 25 XR, elbow , 3 or more view No observ ation record ed. [address], [address], 06/24/2024 12:19:06 Result Notes None recorded. Problems Name Problem SNOMED Code Status Onset Date Resolution Date Notes Provider Name and Address Organization Details Recorded Time Backache 329019166 Active 2009 Recorded 0 1:28PM by Yudelka Gavin Summary; Promoted; acuity set as * Not Available [facility] 7 01:32:31 History of hypertens ion 100217455 Active 2009 Recorded 0 1:29PM by Yudelka Gavin Summary; Promoted; acuity set as * Not Available [facility] 7 01:32:31 Wears glasses 531275662 Active 2009 Recorded 0 1:29PM by Yudelka Gavin Summary; Promoted; acuity set as * Not Available [facility] 7 01:32:31 Tendiniti s of long head of biceps brachii of left shoulder 134589086 Active 2022 SHAW PAUL MD [address] [place] [address], , [facility] 3 12:39:09 Rupture of rotator cuff of left shoulder 58556781088 053749 Active 2022 SHAW PAUL MD [address] [place] [address], , [facility] 3 12:39:10 History of operative procedure on shoulder 721718304 Active 2022 Left Shoulder Open excision of suprascap Lipoma ad open DCE. 03/14/23 GHULAM BOWDEN [address] [place] [address], , [facility] 3 10:44:32 Postopera tive care Active 2022 SHAW PAUL MD [address] [place] [address], , [facility] 3 20:50:25 Bilateral tendiniti s of long head of biceps brachii of shoulders 83265433071 206698 Active 2023 SHAW PAUL MD [address] [place] [address], , [facility] 4 12:00:56 Bilateral subacromi al bursitis of shoulders 36140575191 019750 Active 2023 Idalia Sanchez PA-C [address] [place] [address], , [facility] 4 13:00:14 Bilateral shoulder joint pain 42582777573 295343 Active 2023 Idalia Sanchez PA-C [address] [place] [address], , [facility] 4 11:35:24 Pain of right elbow joint 09534046080 450256 Active 2024 SHAW PAUL MD [address] [place] [address], , [facility] 5 19:38:01 Problem Notes None recorded. Procedures Surgical History Date Name Laterality Status Provider Name and Address Organization Details Recorded Time 03/28/20 24 Cardiac Surgery completed Oswaldo Montgomery [facility] 06/24/2024 12:54:03 02/05/20 24 Glenohumeral Injection completed Idalia Sanchez PA-C [address] [place], [address], [facility] 02/08/2024 11:33:11 01/18/20 24 Subacromial Injection completed Idalia Sanchez PA-C [address] [place], [address], [facility] 01/18/2024 13:00:57 03/14/20 23 complete repair of rotator cuff completed Kyle Luque [facility] 03/26/2023 13:05:37 surgical procedure on cervical spine completed Kyle Luque MA [facility] 12/25/2022 11:15:24 operation on lumbar spine completed Kyle Luque MA [facility] 12/25/2022 11:15:37 Imaging Results Imaging Date Name Status LastModified by Organiz ation Details LastModified Time 01/03/2024 xr shoulder 2 vw bilateral completed [facility] - [address], [place], [address], 01/10/2024 09:37:50 06/24/2024 elbow RT completed [email or web address] [address], [address] 06/24/2024 12:19:49 06/24/2024 XR, elbow, 3 or more view completed [address], [address], 06/24/2024 12:19:06 Procedure Notes None recorded. Medical Equipment None Reported. Allergies Allergen ID Allergen Name Allergen Category Reaction Reaction Severity Criticality Documentation Date Start Date Code Code System Note Provider Name and Address Organization Details Recorded Time 878774 Product containin g penicilli n (product) medicatio n Not available Not available Not available 07/10/20162009 26838 8001 SNOMED Comme nt: Recor ded 03/31 1:28P M by Wesly John ry; Gaurav junaid; Cory abdi ce:*; Not Available [facility] 7 22:33:20 Medications Name Sig Start [...] Updated DateTime 05/21/2023 187.96 cm 31.5 kg/m2 198656.13 g 0 Kyle Luque [facility] 05/21/2023 15:57:05 Date Recorded Body height Body mass index (BMI) Body weight Pain severity - 0-10 verbal numeric rating [Score] - Reported Provider Name and Address Organization Details Last Updated DateTime 01/03/2024 187.96 cm 31.5 kg/m2 773130.13 g 2 Mina Diane [facility] 01/03/2024 10:57:24 Date Recorded Body height Body mass index (BMI) Body weight Pain severity - 0-10 verbal numeric rating [Score] - Reported Provider Name and Address Organization Details Last Updated DateTime 01/18/2024 187.96 cm 31.5 kg/m2 291220.13 g 5 Oswaldo Montgomery [facility] 01/18/2024 11:36:56 Date Recorded Body height Body mass index (BMI) Body weight Pain severity - 0-10 verbal numeric rating [Score] - Reported Provider Name and Address Organization Details Last Updated DateTime 02/05/2024 187.96 cm 31.5 kg/m2 929952.13 g 5 Oswaldo Montgomery [facility] 02/05/2024 10:05:49 Date Recorded Body height Body mass index (BMI) Body weight Provider Name and Address Organization Details Last Updated DateTime 06/24/2024 187.96 cm 31.5 kg/m2 817612.13 g Oswaldo Montgomery [facility] 06/24/2024 12:53:56 Social History Question Answer Notes LastModified by Organizat ion Details LastModified Time Tobacco Smoking Status Former Smoker Oswaldo morales [facility] 06/24/2024 12:54:09 What Is Your Level Of Alcohol Consumption? Occasional [email or web address] Information not available 12/25/2022 Are You Deaf Or Do You Have Serious Difficulty Hearing? 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 Left [email or web address] Information not available 06/24/2024 How Much Tobacco Do You Smoke? No [email or web address] Information not available 06/24/2024 Do You Use Any Illicit Or Recreational Drugs? No [email or web address] Information not available 12/25/2022 Has Tobacco Cessation Counseling Been Provided? No [email or web address] Information not available 12/25/2022 Do You Or Have You Ever Used Any Other Forms Of Tobacco Or Nicotine? No [email or web address] Information not available 12/25/2022 Sex: Unknown Functional Status Question Answer Note LastModified by Organizat ion Details LastModified Time What is your exercise level? Occasional [email or web address] Information not available 06/24/2024 Mental Status None [...] Impairment Y Anesthesia Complications N Heart Attack (ME) N Headaches/Migraines N Deep Vein Thrombosis N [...] SNOMED-CT Code Diagnosis ICD10 Code Diagnosis Note [id number] SHAW PAUL MD [facility] 20 [facility] [address] [place] [address] 12/25/2022 11:05:59 12/25/2022 12:20:50 Rupture of rotator cuff of left shoulder 4278330962 5969210 M75.102 Tendinitis of long head of biceps brachii of left shoulder 529374562 M75.22 [id number] MD CAT Owens [address] [address] 01/09/2023 09:45:33 01/09/2023 10:30:48 Pain of right wrist 5526713960 96781 M25.531 Numbness of hand 5429589 04 R20.0 [id number] MD CAT SERRATO [address] [address] 01/29/2023 07:42:44 01/30/2023 18:53:11 Rupture of rotator cuff of left shoulder 3534330750 1562934 M75.102 Lipoma of shoulder 47168 4000 D17.22 I spent a total of [...] the plan of care of this patient. [id number] MD CAT SERRATO [address] [address] 02/26/2023 07:36:05 02/28/2023 15:44:23 Rupture of rotator cuff of left shoulder 4826562376 4752961 M75.102 Lipoma of shoulder 44288 4000 D17.22 I spent a total of [...] the plan of care of this patient. [id number] MD CAT Owens [address] [address] 03/20/2023 11:40:57 03/20/2023 13:11:37 Pain of right wrist 7451415950 56293 M25.531 Numbness of hand 5257126 04 R20.0 [id number] MD CAT SERRATO [address] [address] 03/26/2023 12:55:25 03/26/2023 14:21:06 Postoperative care 777201416 Z48.89 [id number] MD CAT SERRATO [facility] [address] [facility] [place] [address] 05/21/2023 07:53:11 05/31/2023 08:46:36 Postoperative care 103692109 Z48.89 [id number] MD CAT SERRATO [facility] [address] [facility] [place] [address] 01/03/2024 10:43:33 01/03/2024 11:23:45 Bilateral tendinitis of long head of biceps brachii of shoulders 8881094740 8444070 M75.21 M75.22 [id number] Idalia Sanchez PA-C [address] [address] 01/18/2024 10:48:55 01/18/2024 14:05:27 Bilateral subacromial bursitis of shoulders 5868317736 0963479 M75.51 M75.52 [id number] Idalia Sanchez PA-C [address] [address] 02/05/2024 08:45:27 02/05/2024 10:48:57 Bilateral shoulder joint pain 4262197553 9446110 M25.511 M25.512 [id number] MD CAT SERRATO [address] [address] 06/24/2024 12:08:22 06/24/2024 13:57:09 Pain of right elbow joint 8115092394 7413422 M25.521 Health Concerns Section Related Observation LastModified by Organization Detai ls LastModified Time None Recorded Concern Status LastModified by Organization Details LastModified Time None Recorded Advance Directives Directive None Recorded Payers Encounter Date Sequence Insurance Name Policy Number Policy Mcmullen Covered Member ID Mcmullen Member ID Guarantor Name 05/21/2023 1 [place] [id number] Dain [id number] 01/03/2024 1 [employer]: [place] [employer] (PPO) [id number] Dain [id number] 01/18/2024 1 [employer] [place] [employer] [employer] ([place]) [id number] Dain Brewer [id number] 02/05/2024 1 [employer] [place]: [employer] [employer] ([place]O) [id number] Dain Brewer [id number] 06/24/2024 1 [employer] [place]: [employer] [employer] ([place]O) [id number] Dain Brewer [id number] Notes Date Note Type [...] All questions were answered. SHAW PAUL MD [address] [place] [address], [address], [facility] 05/24/2023 21:17:06 01/03/2024 [...] time. His tenderness is over the biceps. Oakley's test is moderate. Comprehensive rotator cuff testing statically and dynamically shows no deficit. His contralateral shoulder the right shoulder shows a similar exam. The AC joint is nontender. Somewhat prominent but negative crossover test. No pain with passive motion. Static and dynamic functional rotator cuff testing shows no deficit. Negative empty can sign. Some discomfort over the bicipital groove. Mildly positive Oakley's test. Distally he is neurologically intact. This does not appear to be coming from the cervical spine. Bilateral x-rays are obtained at [facility]. These do not demonstrate significant arthrosis. [...] will stay in touch. SHAW PAUL MD [address] [place] [address], [address], [facility] 01/04/2024 12:01:20 01/18/2024 text/html Dain presents to clinic today for bilateral ultrasound-guided shoulder injections. He has been dealing with pain for over 6 months now. The pain is affecting his ability to lay on his back at night. He describes the pain over the anterior portion of the shoulder bilaterally Idalia Sanchez PA-C [address] [place] [address], [address], [facility] 01/18/2024 13:01:01 02/05/2024 [...] to 4 weeks. Idalia Sanchez PA-C [address] [place], [address], [facility] 02/08/2024 11:36:08 06/24/2024 [...] happy to assist. SHAW PAUL MD [address] [place], [address], [facility] 06/24/2024 19:38:24
--- OUTSIDE RECORDS SUMMARY | 2024-07-28 15:16 | XMS_ITS | Referral Summary ---
Author Organization [facility] Address [address] [place] [address] Care Team Providers Care Customs Manager Name Role Phone Janay Peters DO, Diana Primary Care Provider + Encounters Date Type Department Care Team Description 07/17/2024 3:00 PM EST Office Visit [facility] [address] [facility] Family Practice Department [address] [place] [address] Patrica Gustafson DO Routine medical exam (Primary Dx); Screening for colon cancer; NSTEMI (non-ST elevated myocardial infarction) (HCC); S/P CABG x 3; Pulmonary emphysema, unspecified emphysema type (HCC) from Last 3 Months Allergies Active Allergy [...] (07/17/2024 3:28 PM EST): Currently asymptomatic. 03/24/24 [facility] hospitalization for chest pain and VILLAREAL. Troponins were flat. 03/28 CABG x 3 with post op Afib. Plavix and aspirin for 1 year for NSTEMI. Will be starting cardiac rehab in May. Will be seeing construction teacher Dr. Castro in October. Assessment & Plan (05/07/2024 9:55 PM EST): 03/24/24 [facility] hospitalization for chest pain and VILLAREAL. Troponins were flat. 03/28 CABG x 3 with post op Afib. Plavix and aspirin for 1 year for NSTEMI. Will be starting cardiac rehab in May. Will be seeing construction teacher Dr. Castro on May 02. 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 Assessment & Plan (05/07/2024 9:55 PM EST): As above. New onset a-fib (CMS/HCC) 05/07/2024 Assessment & Plan (05/07/2024 9:55 PM EST): Post CABG Afib. Continue beta rosalind, eliquis as prescribed by construction teacher. Emphysema of lung 05/07/2024 Assessment & [...] 23 Valent 04/05/2015 Pneumococcal conjugate PCV20 ,polysaccharide EIC107 conjugate, adjuvant, PF (Prevnar 20) 02/28/2022 Tetanus [...] drink = 0.6 oz pur e alcohol) [facility] Utilities Answer Date Recorded In the past 12 months has th e [employer], oil, or water [employer] threatened to shut off services in your [...] Description 01/20/2025 3:30 PM EDT Office Visit [address] Practice Department [address] [place] [address] Patrica Gustafson V DO [address] [place] [address] 07/23/2025 3:30 PM EDT Office Visit [address] Practice Department [address] [place] [address] Patrica Gustafson V DO [address] [place] [address] Procedures * Due to [place] state law, this organization might not be [...] to Health Maintenance Results * Due to [place] state law, this organization might not be sharing negative HIV tests. * CBC (07/28/2024 8:04 AM EDT) WBC 8.2 4.8 - 10.8 10*3/uL 07/28/2024 2:34 PM EDT [facility] RBC 5.09 4.70 - 6.10 10*6/uL 07/28/2024 2:34 PM EDT [facility] Hemoglobin 15.2 13.7 - 16.5 g/dL 07/28/2024 2:34 PM EDT [facility] Hematocrit 46.1 40.5 - 48.5 % 07/28/2024 2:34 PM EDT [facility] MCV 90.6 80.0 - 94.0 fL 07/28/2024 2:34 PM EDT [facility] MCH 29.9 26.0 - 34.0 pg 07/28/2024 2:34 PM EDT [facility] MCHC 33.0 31.0 - 36.0 g/dL 07/28/2024 2:34 PM EDT [facility] RDW 13.1 12.0 - 15.0 % 07/28/2024 2:34 PM EDT [facility] Platelets 239 140 - 440 10*3/uL 07/28/2024 2:34 PM EDT [facility] MPV 11.1 9.4 - 12.4 fL 07/28/2024 2:34 PM EDT [facility] RDW Standard Deviation 43.7 35.1 - 43.9 fL 07/28/2024 2:34 PM EDT [facility] Blood Structure of peripheral vein / Unknown Venipuncture / Unknown 07/28/2024 8:04 AM EDT 07/28/2024 1:01 PM EDT us Patrica Immenhausen V, DO LAB BLOOD ORDERABLES Fin al Result Performing Organization Address City/[facility]/ZIP Co de Phone Number [facility] [address] [address], [place] [phone] * PSA (07/28/2024 8:04 AM EDT) PSA 1.850 <=4.000 ng/mL 07/28/2024 3:06 PM EDT [facility] Blood Structure of peripheral vein / Unknown Venipuncture / Unknown 07/28/2024 8:04 AM EDT 07/28/2024 1:01 PM EDT us Patrica Immenhausen V, DO LAB BLOOD ORDERABLES Fin al Result [facility] [address] [address], [place] [phone] * Lipid panel (07/28/2024 8:04 AM EDT) Cholesterol 128 mg/dL 07/28/2024 3:06 PM EDT [facility] Comment: DESIRABLE: <200 mg/dL BORDERLINE HIGH: 200-239 mg/dL HIGH: >239 mg/dL Triglycerides 68 mg/dL 07/28/2024 3:06 PM EDT [facility] Comment: NORMAL: <150 mg/dL BORDERLINE HIGH: 150-199 mg/dL HIGH: 200-499 mg/dL VERY HIGH >499 mg/dL Cholesterol, HDL 45 mg/dL 07/29/19 3:06 PM EDT [facility] Comment: DESIRABLE: >60 mg/dL BORDERLINE: 40-59 mg/dL UNDESIRABLE: <40 mg/dL LDL Cholesterol 69 mg/dL 3:06 PM EDT [facility] Comment: OPTIMAL: <100 mg/dL NEAR OPTIMAL: <130 mg/dL BORDERLINE HIGH: 130-159 mg/dL HIGH: 160-189 mg/dL VERY HIGH: >189 mg/dL VLDL 13.6 mg/dL 07/28/2024 3:06 PM EDT [facility] Cholesterol/HDL Ratio 2.8 07/28/2024 3:06 PM EDT [facility] Blood Structure of peripheral vein / Unknown Venipuncture / Unknown 07/28/2024 8:04 AM EDT 07/28/2024 1:01 PM EDT us Patrica Gustafson V, DO LAB BLOOD ORDERABLES Fin al Result [facility] [address] [facility] [address] [place] [address], [place] [phone] * Comprehensive Metabolic Panel (07/28/2024 8:04 AM EDT) NA 140 136 - 145 mmol/L 07/28/2024 3:06 PM EDT [facility] K 4.5 3.5 - 5.1 mmol/L 07/28/2024 3:06 PM EDT [facility] Cl 104 98 - 109 mmol/L 07/28/2024 3:06 PM EDT [facility] CO2 24 22 - 32 mmol/L 07/28/2024 3:06 PM EDT [facility] Anion Gap 17 >=0 07/28/2024 3:06 PM EDT [facility] Glucose 89 60 - 99 mg/dL 07/28/2024 3:06 PM EDT [facility] Creatinine 0.97 0.50 - 1.12 mg/dL 07/28/2024 3:06 PM EDT [facility] Calcium 9.6 8.4 - 10.4 mg/dL 07/28/2024 3:06 PM EDT [facility] Total Protein 6.8 6.6 - 8.7 g/dL 07/28/2024 3:06 PM EDT [facility] Albumin 4.2 3.5 - 5.0 g/dL 07/28/2024 3:06 PM EDT [facility] Bilirubin, Total 0.4 0.2 - 1.2 mg/dL 07/28/2024 3:06 PM EDT [facility] Alkaline Phosphatase 111 40 - 129 U/L 07/28/2024 3:06 PM EDT [facility] AST 37 0 - 40 U/L 07/28/2024 3:06 PM EDT [facility] ALT 25 <=41 U/L 07/28/2024 3:06 PM EDT [facility] BUN 15 8 - 23 mg/dL 07/28/2024 3:06 PM T [facility] eGFR 83 >=60 mL/min/1. 73m2 07/28/2024 3:06 PM T [facility] Comment:The estimated glomer ular filtration rate (eGFR) is calculated using a new formula developed by the NKF-ASN task force to eliminate race-based correction factors. The new formula uses serum/plasma creatinine, age, and gender to determine eGFR. A value below 60mls/min might indicate kidney disease and will be flagged. For additional information, see Naida english al, Am J Kidney Dis. 2021;79(2):268- 288, A Unifying Approach for GFR estimation: Recommendations of the NKF-ASN Task Force on Reassessing the Inclusion of Race in Diagnosing Kidney Disease . Globulin, Total 2.6 2.1 - 4.2 g/dL 07/28/2024 3:06 PM EDT [facility] A/G Ratio 1.6 1.5 - 3.0 07/28/2024 3:06 PM EDT [facility] Blood Structure of peripheral vein / Unknown Venipuncture / Unknown 07/28/2024 8:04 AM EDT 07/28/2024 1:01 PM EDT us Patrica Gustafson V, DO LAB BLOOD ORDERABLES Fin al Result [facility] [address] [facility] [address] [place] [address], [place] [phone] * CT Lung Cancer Screening 12 Months [...] obtain the completed interpretation. ? Workstation ID: [id number] Up-to-date CT equipment and radiation dose reduction [...] Mild degenerative vertebral disease. Resulting Agency Comment [id number] Procedure Note Micah Ramos MD PhD - [...] possible to obtain thecompleted interpretation. Workstation ID: [id number] Up-to-date CT equipment and radiation dose reduction techniques wereemployed. CTDIvol: 1.6 mGy. DLP: 59 mGy-cm. Patrica Gustafson V DO IMG CT PROCEDURES Final Result * [...] CONVERSION DATA LAB 01/01/2023 9:24 AM EDT Patrica Gustafson V DO LAB BLOOD ORDERABLES Fin al Result CONVERSION DATA LAB * US Abdominal Aorta (12/10/2019 8:16 AM EDT) Anatomical Region Laterality Modality Body N/A Ultrasound 12/10/2019 9:22 AM EDT Narrative 12/10/2019 9:27 AM EDT ? DEPARTMENT OF RADIOLOGY Patient: ALISHA CHAVIS ?Unit #: [id number] Ordering MD: CIRO ORONA D.O ?: 1950 [...] DEPARTMENTOF RADIOLOGY Lyssa t: ALISHA CHAVIS Unit #:[id number] Ordering MD: CIRO ORONA D.O :1950 Procedure: US Aorta Screening Age:69 Location: [facility] ExamDate: 12/10/19 Status: REG [facility]/Bed: Primary MD: CIRO ORONA D.O PatientAcct #: [id number] Order:[id number] Additional Copy: CIRO ORONA D.O - [...] [place]ron[place] DO IMG US PROCEDURES Final Result * HM Colonoscopy (09/27/2018 8:43 AM EDT) us Onbase Scan [facility] Final Resu lt from Last 3 Months or Most Recently Relevant to Health Maintenance Insurance [facility] OUT OF STATE PPO Advance Directives Documents on File Type Date Recorded Patient Enroller Expl [facility] Health Care Proxy 09/29/2022 06/30/2022 Care Teams Customs Manager Relationship Specialty Start Date End Date Patrica Gustafson DO [address] [place] [address] PCP - General Family Medicine 08/17/23
--- OUTSIDE RECORDS SUMMARY | 2024-07-28 15:16 | XMS_ITS | Data Portability ---
Author Organization [place] - [place], [facility] [place] Address [address] [facility], [address] [place] [address] Care Team Providers Care Decorator Consultant Name Role Phone RADHA MILLER Primary Care Provider [phone] Assessment Encounter Date Assessment Date Assessment LastModified [...] with other health professionals, coordinating patient care [email or web address] Not available 02/15/2023 21:16:48 03/26/2023 03/26/2023 His [...] time interactive audio/visual telehealth visit conducted via skyrockit The patient was identified by name and date of and consented to this telehealth visit. The patient was at their home in [place] and I was at my [place] office. This visit was done over the course of 20 minutes including record review. [email or web address] Not available 03/26/2023 09:23:09 05/21/2023 05/21/2023 Mr. [...] The patient was at their home in [place] and I was at my [place] office.This visit was done over the course of 20 minutes including record review. [email or web address] Not available 05/21/2023 09:48:59 06/18/2023 06/18/2023 His [...] time interactive audio/visual telehealth visit conducted via skyrockit The patient was identified by name and date of and consented to this telehealth visit. The patient was at their home in [place] and I was at my [place] office. This visit was done over the course of 20 minutes including record review. [email or web address] Not available 06/18/2023 08:11:50 Plan of Treatment Reminders Order Date Submit Date Provider Last Modified By Organization Details Last Modified Time Details Appointments None recorded. Lab None recorded. Referral physical therapist referral 2022 023 [email or web address] [facility] - [place] [address] [address] [facility] [address], [place], [address], 3 12:20:14 Procedures None recorded. Surgeries None recorded. Imaging MRI, lumbar spine, w/o contrast - PLEASE CALL PATIENT TO SCHEDULE APPOiNTMENT 2023 024 [facility], [address] [place], [address], 4 13:30:07 Medication Orders None recorded. Patient TargetsNo targets recorded. Patient InstructionsNo instructions recorded. Reason for Referral Physical Therapist Referral for Cervical radiculopathy Referring Physician: Anival Montgomery, Physician Field Crop Grower, Encounter Date: 02/15/2023 Results Created Date Observation Date Name Description Value Unit Range Abnormal Flag Note LastModifiedBy Organization Detail LastModifiedTime 02/16/2002/15/2023 XR, cervi corey spine No observ ation record ed. [email or web address] Not Available 2022 13:01:08 03/23/2003/05/2023 elect romyo gram + nerve condu ction study No observ ation record ed. [address] [facility] [address] [place], [address], 03/25/2023 20:52:19 06/01/19 24 05/30/2023 MRI, lumba r spine , w/o contr ast No observ ation record ed. [address] [facility] [address], [address], 06/06/2023 10:01:20 Result Notes None recorded. Procedures Surgical History Date Name Laterality Status Provider Name and Address Organization Details Recorded Time 5 Orthopaedic Surgery completed Carlos Ascencio MA [facility] 02/15/2023 09:53:04 4 Orthopaedic Surgery completed Carlos Ascencio MA [facility] 02/15/2023 09:53:18 Imaging Results Imaging Date Name Status LastModified by Organization Details LastModified Time 02/15/2023 XR, cervical spine [place] [address] Inform ation not available 02/17/2023 13:01:08 03/05/2023 electromyogram + nerve conduction study completed [address] [facility] [address] [place], [address], 03/25/2023 20:52:19 05/30/2023 MRI, lumbar spine, w/o contrast completed [address] [facility] [address], [address], 06/06/2023 10:01:20 Procedure Notes None recorded. Medical Equipment None Reported. Allergies Allergen ID Allergen Name Allergen Category Reaction Reaction Severity Criticality Documentation Date Start Date Code Code System Note Provider Name and Address Organization Details Recorded Time [id number] Product containin g penicilli n (product) medicatio n Not available Not available Not available 02/15/2023 [id number] SNOMED Carlos morales MA [facility] 09:50:22 Medications Name Sig Start Date Stop [...] Status Current Every Day Smoker Carlos Ascencio [place], [place] - [facility] 02/15/2023 09:49:59 What Is Your Level Of [...] or AIDS N High Blood Pressure N MRSA N Weight Gain / Loss N Angina, Heart Failure or Attack N Night Sweats N Osteoarthritis / Rheumatoid arthritis / Other N Cancer N Stroke N Visual Loss or Glaucoma Y Heart Problems N Emphysema / Chronic Bronchitis N Reaction to General/Local Anesthesia N Hepatitis / Jaundice N Kidney / Bladder Infections N Bleeding Disorder N Chemical Dependency / Alcoholism N Thyroid Disorder N Pulmonary Embolism N Irregular Heartbeat N Any Other Significant Medical Issues N Hearing Loss Y Seizures / Epilepsy N Ulcer / Stomach Bleeding / Indigestion N Blood Clots / Phlebitis N Depression or Anxiety N Diabetes N Psoriasis / Skin Rash N Heart Disease N Asthma / Shortness of Breath / Sleep Kiln Repairer ea (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) N Past Encounters Encounter ID Performer Location Encounter Start Date Encounter Closed Date Diagnosis/Indication Diagnosis SNOMED-CT Code Diagnosis ICD10 Code Diagnosis Note [id number] GHULAM BRUNNER [facility] Office [address] [place] [address] 7 02/15/2023 09:18:00 02/15/2023 11:25:53 Cervical radiculopathy 13081575 M54.12 [id number] GHULAM BRUNNER [facility] Office [address] [place] [address] 7 03/26/2023 09:07:08 03/30/2023 14:12:38 Cervical radiculopathy 73861986 M54.12 [id number] GHULAM BRUNNER [facility] Office [address] [place] [address] 7 05/21/2023 09:34:23 05/24/2023 14:06:17 Lumbar radiculopathy 928220651 M54.16 [id number] GHULAM BRUNNER [facility] Office [address] [place] [address] 7 06/18/2023 07:57:38 06/20/2023 13:28:54 Lumbar spondylosis 379745422 M47.896 Health Concerns Section Related Observation LastModified by Organization Detai ls LastModified Time None Recorded Concern Status LastModified by Organization Details LastModified Time None Recorded Advance Directives Directive None Recorded Payers Encounter Date Sequence Insurance Name Policy Number Policy Mcmullen Covered Member ID Mcmullen Member ID Guarantor Name 02/15/2023 1 MICKEY-NICOLA: MICKEY (PPO) [id number] Dain [id number] Dain Brewer 03/26/2023 1 [place] [id number] Dain Brewer [id number] Dain Brewer 05/21/2023 1 [place] [id number] Dain Brewer [id number] Dain Brewer 06/18/2023 1 [place] [id number] Dain Brewer [id number] Dain Brewer Notes Date Note Type [...] as recommended by Dr. Brown. GHULAM BRUNNER [address] [place] [address], [phone], [facility] 02/15/2023 21:19:03 03/26/2023 text/html Mr. Brewer presents [...] pressing on his rotator cuff. GHULAM BRUNNER [address] [place] [address], [phone], [facility] 03/26/2023 09:23:22 05/21/2023 text/html Mr. Brewer presents [...] reports he is slower. He was in [place] and utilized a cart to walk around [facility] due to fatigue and pain. The leg pain is most concerning to him. He has noticed a recent change in his balance. He denies any right leg pain, numbness/tingling. He recalls prior lumbar surgery on 'L5' region and since has had residual lower back pain. GHULAM BRUNNER [address] [place] [address], [phone], [facility] 05/21/2023 09:50:18 06/18/2023 text/html Mr. Brewer presents via for imaging review. The back pain is constant. The hip/left leg pain has improved significantly. He reports the left leg is 'dragging' still but it is not worsening. This has been present for years, since his initial lumbar surgery. Denies any new numbness/tingling. GHULAM BRUNNER [address] [place] [address], [phone], [facility] 06/18/2023 08:53:32
--- OUTSIDE RECORDS SUMMARY | 2024-07-28 15:16 | XMS_ITS ---
Author Organization [facility] Address [address] [place] [address] Care Team Providers Care Medical Referral Coordinator Name Role Phone Janay Peters DO, Diana Primary Care Provider + Active Problems Problem Noted Date Diagnosed Date NSTEMI (non-ST elevated myocardial infarction) 1 07/08/2023 Assessment & Plan (07/17/2024 3:28 PM EST): Currently asymptomatic. 03/24/24 [facility] hospitalization for chest pain and VILLAREAL. Troponins were flat. 03/28 CABG x 3 with post op Afib. Plavix and aspirin for 1 year for NSTEMI. Will be starting cardiac rehab in May. Will be seeing earth moving machine operator Dr. Castro in October. Assessment & Plan (05/07/2024 9:55 PM EST): 03/24/24 [facility] hospitalization for chest pain and VILLAREAL. Troponins were flat. 03/28 CABG x 3 with post op Afib. Plavix and aspirin for 1 year for NSTEMI. Will be starting cardiac rehab in May. Will be seeing earth moving machine operator Dr. Castro on May 02. 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 Assessment & Plan (05/07/2024 9:55 PM EST): As above. New onset a-fib (CMS/HCC) 05/07/2024 Assessment & Plan (05/07/2024 9:55 PM EST): Post CABG Afib. Continue beta rosalind, eliquis as prescribed by earth moving machine operator. Emphysema of lung 05/07/2024 Assessment & Plan [...] TotalDLP 59 mGy 59 mGy 0 mGy [id number] 0.6 mSv 0.6 mSv 0 mSv CTDIvol Max 1.6 mGy 1.6 mGy 0 mGy CTDIvol Min 1.6 mGy 1.6 mGy 0 mGy Resolved Problems Problem Noted Date Diagnosed Date Resolved Date COVID-19 05/16/2023 05/07/2024 Former smoker 05/16/2023 01/17/2024
--- OUTSIDE RECORDS SUMMARY | 2024-07-28 15:16 | XMS_ITS | Encounter Summary ---
Author Organization [facility] Address [address] [place] [address] Care Team Providers Care Calender Machine Operator Helper Name Role Phone Janay Peters DO, Diana Primary Care Provider + Reason for Referral * Consultation (Routine) - Pending Review Specialty Diagnoses / Procedures Referred By Renu t Referred To Contact Gastroenterology Diagnoses Screening for colon cancer Patrica Gustafson DO [address] [place] [address] Phone: tel: fax: Getachew Cervantes MD [address] [place] [address] Phone: tel: fax: Referral ID Status Reason Start Date Expiration Date Visits Requested Visits Authorized [id number] Pending Review Specialty Services Required 07/17/2024 01/16/2026 6 6 Reason for Visit * Reason Comments Annual Exam CPE Encounter Details Date Type Department Care Team (Late st Contact Info) Description 07/17/2024 3:00 PM EST Office Visit [facility] [address] [facility] Family Practice Department [address] [place] [address] Patrica Gustafson DO [address] [place] [address] Routine medical exam (Primary Dx); Screening for colon cancer; NSTEMI (non-ST elevated myocardial infarction) (HCC); S/P CABG x 3; Pulmonary emphysema, unspecified emphysema type (HCC) Social History Tobacco Use Types Packs/Day Years Used Date Smoking Tobacco: Every Day Cigarettes 0.5 62.2 Started: 1960 Passive Smoke Exposure: Past Smokeless Tobacco: Never Tobacco Cessation:Ready to Q uit: Not Asked; Counseling Given: Not Answered Alcohol Use Standard Drinks/Week Comments Not Currently 0 (1 standard drink = 0.6 oz pur e alcohol) [facility] Utilities Answer Date Recorded In the past 12 months has e [employer], gas, oil, or water Cued threatened to shut off services in your [...] Orientation Straight 07/07/2023 11 :32 AM EST documented as of this encounter Last Filed Vital Signs Vital Sign Reading [...] Mass Index 33.61 07/17/2024 2:48 PM EST documented in this encounter Miscellaneous Notes * Assessment & Plan Note - Patrica Peters DO - 07/17/2024 3:28 PM EST Associated Problem(s): Emphysema of lung (HCC) 01/2024 CT chest showed evidence of pulmonary emphysema but no suspicious pulmonary nodules seen. Recommend pulmonary follow up and repeat CT chest in 12 months. * Assessment & Plan Note - Patrica Peters DO - 07/17/2024 3:28 PM EST Associated Problem(s): NSTEMI (non-ST elevated myocardial infarction) (HCC) Currently asymptomatic. 03/24/24 [facility] hospitalization for chest pain and VILLAREAL. Troponins were flat. 03/28 CABG x 3 with post op Afib. Plavix and aspirin for 1 year for NSTEMI. Will be starting cardiac rehab in May. Will be seeing rivet hole puncher Dr. Castro in October. * Assessment & Plan Note - Patrica Peters DO - 07/17/2024 3:28 PM EST Associated Problem(s): S/P CABG x 3 As above. documented in this encounter Plan of Treatment Upcoming Encounters Date Type Department Care Team (Late st Contact Info) Description 01/20/2025 3:30 PM EDT Office Visit [facility] [address] [facility] Family Practice Department [address] [place] [address] Patrica Gustafson V, DO [address] [place] [address] 07/23/2025 3:30 PM EDT Office Visit [facility] [address] [facility] Family Practice Department [address] [place] [address] Patriac Gustafson V, DO [address] [place] [address] Scheduled Referrals Name Type Priority Associated Diagnoses Order Schedule Ambulatory referral to Gastroenterology Outpatient Referral Routine Screening for colon cancer Expected: 07/17/2024, Expires: 01/17/2025 documented as of this encounter Results * Due to [place] state law, this organization might not be sharing negative HIV tests. * PSA (07/28/2024 8:04 AM EDT) PSA 1.850 <=4.000 ng/mL 07/28/2024 3:06 PM EDT [facility] Blood Structure of peripheral vein / Unknown Venipuncture / Unknown 07/28/2024 8:04 AM EDT 07/28/2024 1:01 PM EDT us Patrica Peters DO LAB BLOOD ORDERABLES Fin al Result [facility] [address] [facility] [address] [place] [address], [place] [phone] * Lipid panel (07/28/2024 8:04 AM EDT) Cholesterol 128 mg/dL 07/28/2024 3:06 PM EDT [facility] Comment: DESIRABLE: <200 mg/dL BORDERLINE HIGH: 200-239 mg/dL HIGH: >239 mg/dL Triglycerides 68 mg/dL 07/28/2024 3:06 PM EDT [facility] Comment: NORMAL: <150 mg/dL BORDERLINE HIGH: 150-199 mg/dL HIGH: 200-499 mg/dL VERY HIGH >499 mg/dL Cholesterol, HDL 45 mg/dL 07/29/19 3:06 PM EDT [facility] Comment: DESIRABLE: >60 mg/dL BORDERLINE: 40-59 mg/dL UNDESIRABLE: <40 mg/dL LDL Cholesterol 69 mg/dL 3:06 PM EDT [facility] Comment: OPTIMAL: <100 mg/dL NEAR OPTIMAL: <130 mg/dL BORDERLINE HIGH: 130-159 mg/dL HIGH: 160-189 mg/dL VERY HIGH: >189 mg/dL VLDL 13.6 mg/dL 07/28/2024 3:06 PM EDT [facility] Cholesterol/HDL Ratio 2.8 07/28/2024 3:06 PM EDT [facility] Blood Structure of peripheral vein / Unknown Venipuncture / Unknown 07/28/2024 8:04 AM EDT 07/28/2024 1:01 PM EDT us Patrica Gustafson V, DO LAB BLOOD ORDERABLES Fin al Result [facility] [address] [facility] [address] [place] [id number], [place] [phone] * Comprehensive Metabolic Panel (07/28/2024 8:04 AM EDT) NA 140 136 - 145 mmol/L 07/28/2024 3:06 PM EDT [facility] K 4.5 3.5 - 5.1 mmol/L 07/28/2024 3:06 PM EDT [facility] Cl 104 98 - 109 mmol/L 07/28/2024 3:06 PM EDT [facility] CO2 24 22 - 32 mmol/L 07/28/2024 3:06 PM EDT [facility] Anion Gap 17 >=0 07/28/2024 3:06 PM EDT [facility] Glucose 89 60 - 99 mg/dL 07/28/2024 3:06 PM EDT [facility] Creatinine 0.97 0.50 - 1.12 mg/dL 07/28/2024 3:06 PM EDT [facility] Calcium 9.6 8.4 - 10.4 mg/dL 07/28/2024 3:06 PM EDT [facility] Total Protein 6.8 6.6 - 8.7 g/dL 07/28/2024 3:06 PM EDT [facility] Albumin 4.2 3.5 - 5.0 g/dL 07/28/2024 3:06 PM EDT [facility] Bilirubin, Total 0.4 0.2 - 1.2 mg/dL 07/28/2024 3:06 PM EDT [facility] Alkaline Phosphatase 111 40 - 129 U/L 07/28/2024 3:06 PM EDT [facility] AST 37 0 - 40 U/L 07/28/2024 3:06 PM EDT [facility] ALT 25 <=41 U/L 07/28/2024 3:06 PM EDT [facility] BUN 15 8 - 23 mg/dL 07/28/2024 3:06 PM T [facility] eGFR 83 >=60 mL/min/1. 73m2 07/28/2024 3:06 PM T [facility] Comment:The estimated glomer ular filtration [...] - 4.2 g/dL 07/28/2024 3:06 PM EDT [facility] A/G Ratio 1.6 1.5 - 3.0 07/28/2024 3:06 PM EDT [facility] Blood Structure of peripheral vein / Unknown Venipuncture / Unknown 07/28/2024 8:04 AM EDT 07/28/2024 1:01 PM EDT us Patrica Gustafson V, DO LAB BLOOD ORDERABLES Fin al Result [facility] [address] [facility] [address] [place] [address], [place] [phone] * CBC (07/28/2024 8:04 AM EDT) WBC 8.2 4.8 - 10.8 10*3/uL 07/28/2024 2:34 PM EDT [facility] RBC 5.09 4.70 - 6.10 10*6/uL 07/28/2024 2:34 PM EDT [facility] Hemoglobin 15.2 13.7 - 16.5 g/dL 07/28/2024 2:34 PM EDT [facility] Hematocrit 46.1 40.5 - 48.5 % 07/28/2024 2:34 PM EDT [facility] MCV 90.6 80.0 - 94.0 fL 07/28/2024 2:34 PM EDT [facility] MCH 29.9 26.0 - 34.0 pg 07/28/2024 2:34 PM EDT [facility] MCHC 33.0 31.0 - 36.0 g/dL 07/28/2024 2:34 PM EDT [facility] RDW 13.1 12.0 - 15.0 % 07/28/2024 2:34 PM EDT [facility] Platelets 239 140 - 440 10*3/uL 07/28/2024 2:34 PM EDT [facility] MPV 11.1 9.4 - 12.4 fL 07/28/2024 2:34 PM EDT [facility] RDW Standard Deviation 43.7 35.1 - 43.9 fL 07/28/2024 2:34 PM EDT [facility] Blood Structure of peripheral vein / Unknown Venipuncture / Unknown 07/28/2024 8:04 AM EDT 07/28/2024 1:01 PM EDT Patrica Peters DO LAB BLOOD ORDERABLES Fin al Result [facility] [address] [facility] [address] [place] [address], [place] [phone] documented in this encounter Visit Diagnoses Diagnosis Routine medical exam- Primary Routine general medical examination at a health care facility Screening for colon cancer Special screening for malignant neoplasms, colon NSTEMI (non-ST elevated myocardial infarction) (HCC) Acute myocardial infarction, subendocardial infarction, episode of care unspecified S/P CABG x 3 Postsurgical aortocoronary bypass status Pulmonary emphysema, unspecified emphysema type (HCC) documented in this encounter Care Teams Calender Machine Operator Helper Relationship Specialty Start Date End Date Patrica Gustafson DO [address] [place] [id number] PCP - General Family Medicine 08/17/23 documented as of this encounter
== END 2024-07-28 13:05 | disposition home or self-care (01) ==
LOC: HO.XRAY 13:04
PROVIDERS: PCP Family Medicine; Visit Provider Hospitalist
DX: R06.09 Other forms of dyspnea (principal)
CPT/HCPCS: 71046

== ENCOUNTER → 2024-07-28 13:09 | Outpatient (BNV) | payer BC, SELFPAY | PROVIDERS: PCP Family Medicine; Visit Provider Radiology Diagnostic Radiology | DX: R06.09 Other forms of dyspnea (principal) | CPT/HCPCS: 71046 ==

== ENCOUNTER 2024-10-08 10:27 | Outpatient (AMB) | payer BC, SELFPAY ==
--- NOTE | 2024-10-08 10:35 | A.OFFVIS_ITS ---
Vital Signs 10/08/24 10:36 Height 6 ft 2 in Weight 256 lb 13.416 oz BMI 33.0 BP 100/70 Blood Pressure Location Lt brachial Position Sitting Pulse 65 Pulse Source Pulse Oximeter Pulse Oximetry (%) 97 Oxygen Delivery Method Room Air Intake Visit Reasons: Emphysema Patient Support Tech Required: No Allergies Penicillins Adverse Reaction (Severe, Verified 10/08/24 10:41) Hives HPI Comments Details: The patient is a 73-year-old gentleman former smoker who was developing worsening dyspnea on exertion. The patient states that he has smoke since he was 22. Initially with a pipe and then cigars. He really enjoys smoking and he found that as a past time. Was not until he started in the lung cancer scre ening program. The patient had an initial CT scan in 01/31/2022 demonstrating moderate degree of emphysema and no pulmonary nodules. Subsequently after that he had a repeat CT scan at [facility] as part of the lung cancer screening program 02/01/2024 with persistent emphysema no pulmonary nodules although he does have significant calcifications all the major vessels and mild calcifications of the coronary arteries. The patient has not been using any inhalers. He states that he had 1 inhaler when he had COVID more than a year ago enough that he did not need any further inhalers. He has been noticing the progressive dyspnea the last several months. He has gotten to the point that he can not keep up with usual activities of daily living. Moderate severity. During the visit today we did go for brief walking oximetry. His oxygen actually was good around 95-96% with activity. Although the heart rate quickly increased to 135 beats per minute. Appeared to be sinus. And the patient was visibly dyspneic 6/10 in the dyspnea score. Lungs are diminished without any wheezing or rhonchi. His cardiac exam is positive for tachycardia. Explained to the patient that at this point that although he does have emphysema need to consider underlying cardiopulmonary conditions that could be affecting his exercise capacity. 07/08/2024 the patient is here for a pulmonary follow-up visit. Since we last spoke he did have to have a cardiac catheterization and ultimately underwent a three-vessel cardiac bypass surgery. He tolerated that well and is recovering now I cardiac rehab. He still have significant shortness breath. With minimal activity still 6/10. He did undergo pulmonary function studies which she did review after he recovered from his surgery still demonstrating moderate COPD but also demonstrating moderate restriction. We also did review his last CT scan of the chest that he had back in February demonstrating moderate degree of emphysema. I also personally looked at the image from his last chest x-ray postoperatively demonstrating a moderate left-sided pleural effusion. His PFTs do demonstrate a moderate restriction which could be related to his recent surgery. Will go ahead having repeat the x-ray to make sure that that lung is expanded. In the meantime will optimize his respiratory therapy by placing him on Trelegy and also a rescue inhaler. He can use the rescue inhaler as needed also 15 minute before exercise. Once he completes cardiac rehab be a great candidate for pulmonary rehabilitation. Will plan to follow-up in 4 months if he has any issues before that he can always call for an earlier assessment. 10/08/2024 the patient is here for pulmonary follow-up visit. He continues to have significant breathlessness with minimal activity and also very tired during the daytime. Seems a fragmented sleep at this time. The patient did finish cardiac rehab been still waiting to start pulmonary rehabilitation. He did try the Trelegy inhaler but he did not help him actually made him worse with significant raspiness in irritation to the throat. He had been rinsing and gargling when using the Trelegy. [place] better once he stopped it. We again went went for walking oximetry in his oxygen does drop a little bit to about 91% but then it comes up suggesting of an electrical alternans on the monitor. He did have an echocardiogram recently at baseline and will need to review to see if there is any evidence of any cardiomyopathy WD affecting his exercise capacity. He does have an obstruction on his PFTs in does need to be on inhalers therefore I will prescribe Bevespi with the idea that he does not have inhaled steroid and should not irritate him and has is not powder either. The patient also she has try some trazodone for sleep to improve his sleep-wake cycle. He is also has daytime drowsiness with an elevated Dacono score of 11/24. We still waiting for sleep study hopefully he is going to have an [facility] Medical History (Updated 07/08/24 @ 20:11 by Khanh Link MD) CAD (coronary artery disease) Pleural effusion Abnormal EKG Dyspnea COPD (chronic obstructive pulmonary disease) Tachycardia Social History Patient Tobacco Use Status: Former Tobacco user Tobacco use type: Cigarette Years Smoked: 60 Years Review of Systems Const Reports daytime sleepiness and Reports snoring Eyes Reports no additional complaints ENT Reports no additional complaints Card Denies palpitations and Reports dyspnea on exertion Resp Reports dyspnea on exertion, Reports snoring and Denies wheezing GI Reports no additional complaints Musc Reports no additional complaints Skin/Breast Denies rash Endo Denies palpitations Jc/Lymph Reports no additional complaints Aller/Immun Denies wheezing Physical Exam Vital Signs: Last Vital Signs Pulse 65 10/08/24 10:36 BP 100/70 10/08/24 10:36 Pulse Ox 97 10/08/24 10:36 Oxygen Delivery Method Room Air 10/08/24 10:36 BMI result Body Mass Index 33.0 Const General: comfortable HEENT Head: Yes normocephalic Neck Neck: Yes supple Chest Chest palpation & inspection: normal inspection of the chest Resp Effort & Inspection: normal respiratory effort Auscultation: diminished lung sounds Cardio Rate: tachycardic Heart sounds: S1 normal heart sound present and S2 normal heart sound present GI Palpation (GI): Soft to palpation Skin General skin exam: no rashes or lesions noted Extrem General: Yes no clubbing, cyanosis or edema Assessment & Plan Assessment & Plan (1) COPD (chronic obstructive pulmonary disease): Code(s): J44.9 - Chronic obstructive pulmonary disease, unspecified Category: Medical Qualifiers: COPD type: emphysema Emphysema type: centrilobular Qualified Code(s): J43.2 - Centrilobular emphysema (2) Dyspnea: Code(s): R06.00 - Dyspnea, unspecified Category: Medical Qualifiers: Dyspnea type: dyspnea on exertion Qualified Code(s): R06.09 - Other forms of dyspnea (3) ANGELY (obstructive sleep apnea): Code(s): G47.33 - Obstructive sleep apnea (adult) (pediatric) Category: Medical (4) Pleural effusion: Code(s): J90 - Pleural effusion, not elsewhere classified Category: Medical (5) CAD (coronary artery disease): Comment: s/p CABG Code(s): I25.10 - Atherosclerotic heart disease of [place] coronary artery without angina pectoris Category: Medical Qualifiers: Associated angina: unspecified whether angina present Coronary Disease- Associated Artery/Lesion type: [place] artery [place] vs. transplanted heart: [place] heart Qualified Code(s): I25.10 - Atherosclerotic heart disease of [place] coronary artery without angina pectoris Plan Trelegy start MARIAM as needed and prior to exercise PFTs moderate Obstruction/restriction CXR Home PSG continue Cardiac rehab, would benefit from pulmonary rehab afterwards F/U 2-3 months Medications: New glycopyrrolate-formoterol 9-4.8 mcg (Bevespi Aerosphere) 2 puffs inhalation Q12H 10.7 grams 11RF 30 days trazodone 50 mg PO BEDTIME PRN 30 tabs 6RF sleep 30 days Coding Level of Care Code Est Pt Level 4 (35713) Complex EM visit Add On G2211 Diagnoses Centrilobular emphysema J43.2 COPD type: emphysema Emphysema type: centrilobular Dyspnea on exertion R06.09 Dyspnea type: dyspnea on exertion ANGELY (obstructive sleep apnea) G47.33 Pleural effusion J90 Coronary artery disease involving [place] coronary artery of [place] heart, unspecified whether angina present I25.10 Associated angina: unspecified whether angina present Coronary Disease-Associated Artery/Lesion type: [place] artery [place] vs. transplanted heart: [place] heart Time Spent (min) 17
[2024-10-08 10:36] VITALS: BP 100/70; PULSE 65; O2SAT 97; BMI 33.0
--- OUTSIDE RECORDS SUMMARY | 2024-10-08 11:25 | XMS_ITS | Data Portability ---
Author Organization [facility] [place] Out[facility] Address [address] [address] Care Team Providers Care Project Scientist Name Role Phone [facility] Primary Care Provi dee RADHA MILLER Primary Care Provider [phone] Assessment Encounter Date Assessment Date Assessment LastModified [...] biceps sheath injection shoulders 2023 [address], [address], 4 09:08:34 Surgeries None recorded. Imaging XR, elbow, 3 or more view [address], [address], 5 07:58:34 Medication Orders None recorded. Patient TargetsNo targets recorded. Patient InstructionsNo instructions recorded. Reason for Referral None Reported. Results Created Date Observation Date Name Description Value Unit Range Abnormal Flag Note LastModifiedBy Organization Detail LastModifiedTime 01/03/20 24 01/03/2024 xr shoul dee 2 vw bilat [facility] Pt Name : CAROL GALVEZhey 1 - Date: 1950 Sex: M Locati on : [facility] ON DXRAD Visit: [id number] Admit Date: 2023 Date of Servic e: 2023 Exam : XR SHOULD ER 2+ VW BILATE RAL Status : Final Order MD : Mendel PAUL Tel#:[phone] CC Provid er:, ------ ------ ------ ------ [...] REPORT SIGNED BY: SCOTT CRAMER 11:09: 29 [facility] [address], [place], [address], 01/10/2024 09:37:50 06/24/19 25 elbow RT No observ ation record ed. [address], [address] 06/24/2024 12:19:49 06/24/19 25 XR, elbow , 3 or more view No observ ation record ed. [address], [address], 06/24/2024 12:19:06 Result Notes None recorded. Problems Name Problem SNOMED Code Status Onset Date Resolution Date Notes Provider Name and Address Organization Details Recorded Time Backache 196812312 Active 2009 Recorded 0 1:28PM by Yudelka Gavin Summary; Promoted; acuity set as * Not Available [facility] 7 01:32:31 History of hypertens ion 889031343 Active 2009 Recorded 0 1:29PM by Yudelka Gavin Summary; Promoted; acuity set as * Not Available [facility] 7 01:32:31 Wears glasses 150364489 Active 2009 Recorded 0 1:29PM by Yudelka Gavin Summary; Promoted; acuity set as * Not Available [facility] 7 01:32:31 Tendiniti s of long head of biceps brachii of left shoulder 267424715 Active 2022 SHAW PAUL MD [address] [place] [address], , [facility] 3 12:39:09 Rupture of rotator cuff of left shoulder 86841146984 517600 Active 2022 SHAW PAUL MD [address] [place] [address], , [facility] 3 12:39:10 History of operative procedure on shoulder 002816713 Active 2022 Left Shoulder Open excision of suprascap Lipoma ad open DCE. 03/14/[address] [place] [address], , [facility] 3 10:44:32 Postopera tive care Active 2022 SHAW PAUL MD [address] [place] [address], , [facility] 3 20:50:25 Bilateral tendiniti s of long head of biceps brachii of shoulders 75602215080 948098 Active 2023 SHAW PAUL MD [address] [place] [address], , [facility] 4 12:00:56 Bilateral subacromi al bursitis of shoulders 68345573274 062312 Active 2023 Idalia Sanchez PA-C [address] [place] [address], , [facility] 4 13:00:14 Bilateral shoulder joint pain 96965780202 824128 Active 2023 Idalia Sanchez PA-C [address] [place] [address], , [facility] 4 11:35:24 Pain of right elbow joint 41830616262 698788 Active 2024 SHAW PAUL MD [address] [place] [address], , [facility] 5 19:38:01 Problem Notes None recorded. Procedures Surgical History Date Name Laterality Status Provider Name and Address Organization Details Recorded Time 03/28/20 24 Cardiac Surgery completed Oswaldo Montgomery [facility] 06/24/2024 12:54:03 02/05/20 24 Glenohumeral Injection completed Idalia Sanchez PA-C [address] [place], [address], [facility] 02/08/2024 11:33:11 01/18/20 24 Subacromial Injection completed Idalia Sanchez PA-C [address] [place], [address], [facility] 01/18/2024 13:00:57 03/14/20 complete repair of rotator cuff completed Kyle Luque [facility] 03/26/2023 13:05:37 surgical procedure on cervical spine completed Kyle Luque [facility] 12/25/2022 11:15:24 operation on lumbar spine completed Kyle Luque [facility] 12/25/2022 11:15:37 Imaging Results None recorded. Procedure Notes None recorded. Medical Equipment None Reported. Allergies Allergen ID Allergen Name Allergen Category Reaction Reaction Severity Criticality Documentation Date Start Date Code Code System Note Provider Name and Address Organization Details Recorded Time 628139 Product containin g penicilli n (product) medicatio n Not available Not available Not available 07/10/20162009 92130 8001 SNOMED Comme nt: Recor ded 03/31 1:28P M by Wesly John ry; Gaurav junaid; Cory abdi ce:*; Not Available [facility] 22:33:20 Medications Name Sig Start Date Stop [...] tablet active Recorded 03/31/20 10 1:31PM by Nataly Gavin al Summary Not Available Not Available Not [...] Updated DateTime 05/21/2023 187.96 cm 31.5 kg/m2 786238.13 g Kyle Luque [facility] 05/21/2023 15:46:29 Date Recorded Body height Body mass index (BMI) Body weight Provider Name and Address Organization Details Last Updated DateTime 06/24/2024 187.96 cm 31.5 kg/m2 665893.13 g Oswaldo Montgomery [facility] 06/24/2024 12:53:56 Date Recorded Body height Body mass index (BMI) Body weight Provider Name and Address Organization Details Last Updated DateTime 01/03/2024 187.96 cm 31.5 kg/m2 870167.13 g Mina Diane [facility] 01/03/2024 10:57:07 Date Recorded Body height Body mass index (BMI) Body weight Provider Name and Address Organization Details Last Updated DateTime 01/18/2024 187.96 cm 31.5 kg/m2 344810.13 mendel Montgomery [facility] 01/18/2024 11:36:52 Date Recorded Body height Body mass index (BMI) Body weight Provider Name and Address Organization Details Last Updated DateTime 02/05/2024 187.96 cm 31.5 kg/m2 104343.13 mendel Montgomery [facility] 02/05/2024 10:05:42 Social History Question Answer Notes LastModified by [employer] Details LastModified Time Tobacco Smoking Status Former Smoker Oswaldo morales [facility] 06/24/2024 12:54:09 Are You Deaf Or Do You Have Serious Difficulty Hearing? Yes [email or web address] Information not available 06/24/2024 Which Of Your Hands Is Dominant? Left [email or web address] Information not available 06/24/2024 How Much Tobacco Do You Smoke? No [email or web address] Information not available 06/24/2024 Has Tobacco Cessation Counseling Been Provided? No [email or web address] Information not available 12/25/2022 Sex: Unknown Functional Status Question Answer Note LastModified by [employer] Details LastModified Time Do you use any illicit or recreational drugs? No [email or web address] Information not available 12/25/2022 Do you or have you ever used any other forms of tobacco or nicotine? No [email or web address] Information not available 12/25/2022 What is your level of alcohol consumption? 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 Occasional [email or web address] Information not available 06/24/2024 Mental Status None [...] Impairment Y Anesthesia Complications N Heart Attack (SD) N Headaches/Migraines N Deep Vein Thrombosis N Diabetes N Anxiety Disorder N Bleeding Disorder N Seizures/Epilepsy N Arthritis Y Cardiac Stent N Blood Clot N Tuberculosis [...] SNOMED-CT Code Diagnosis ICD10 Code Diagnosis Note [id number] SHAW PAUL MD [address] [address] 12/25/2022 11:05:59 12/25/2022 12:20:50 Rupture of rotator cuff of left shoulder 3697921183 3220676 M75.102 Tendinitis of long head of biceps brachii of left shoulder 616090067 M75.22 [id number] Krystina Brown MD [address] [address] 01/09/2023 09:45:33 01/09/2023 10:30:48 Pain of right wrist 4973026178 97742 M25.531 Numbness of hand 3562018 04 R20.0 [id number] MD CAT SERRATO [address] [address] 01/29/2023 07:42:44 01/30/2023 18:53:11 Rupture of rotator cuff of left shoulder 6298010947 8835938 M75.102 Lipoma of shoulder 63959 4000 D17.22 I spent a total of [...] the plan of care of this patient. [id number] MD CAT SERRATO [address] [place] [address] 02/26/2023 07:36:05 02/28/2023 15:44:23 Rupture of rotator cuff of left shoulder 7067946350 3199290 M75.102 Lipoma of shoulder 43955 4000 D17.22 I spent a total of [...] the plan of care of this patient. [id number] Krystina Brown MD [address] [address] 03/20/2023 11:40:57 03/20/2023 13:11:37 Pain of right wrist 5828685923 99540 M25.531 Numbness of hand 8006701 04 R20.0 [id number] MD CAT SERRATO [address] [place] [address] 03/26/2023 12:55:25 03/26/2023 14:21:06 Postoperative care 242972733 Z48.89 [id number] MD CAT SERRATO [address] [place] [address] 05/21/2023 07:53:11 05/31/2023 08:46:36 Postoperative care 686180754 Z48.89 [id number] MD CAT SERRATO [facility] [address] [place] [address] [address] [place] [address] 01/03/2024 10:43:33 01/03/2024 11:23:45 Bilateral tendinitis of long head of biceps brachii of shoulders 3763604023 9910303 M75.21 M75.22 [id number] Idalia Sanchez PA-C [address] [address] 01/18/2024 10:48:55 01/18/2024 14:05:27 Bilateral subacromial bursitis of shoulders 8155387194 3916808 M75.51 M75.52 [id number] Idalia Sanchez PA-C [address] [address] 02/05/2024 08:45:27 02/05/2024 10:48:57 Bilateral shoulder joint pain 6297738943 7688492 M25.511 M25.512 [id number] SHAW PAUL MD [address] [address] 06/24/2024 12:08:22 06/24/2024 13:57:09 Pain of right elbow joint 5753789658 8676533 M25.521 Health Concerns Section Related Observation LastModified by Organization Detai ls LastModified Time None Recorded Concern Status LastModified by Organization Details LastModified Time None Recorded Advance Directives Directive None Recorded Payers None recorded. Notes Date Note Type Note Provider Name [...] All questions were answered. SHAW PAUL MD [address] [place] [address], [address], [facility] 05/24/2023 21:17:06 01/03/2024 [...] time. His tenderness is over the biceps. Mazon's test is moderate. Comprehensive rotator cuff testing statically and dynamically shows no deficit. His contralateral shoulder the right shoulder shows a similar exam. The AC joint is nontender. Somewhat prominent but negative crossover test. No pain with passive motion. Static and dynamic functional rotator cuff testing shows no deficit. Negative empty can sign. Some discomfort over the bicipital groove. Mildly positive Mazon's test. Distally he is neurologically intact. This does not appear to be coming from the cervical spine. Bilateral x-rays are obtained at [facility]. These do not demonstrate significant arthrosis. [...] will stay in touch. [place], [address], [facility] 01/04/2024 12:01:20 01/18/2024 text/html Dain presents to clinic today for bilateral ultrasound-guided shoulder injections. He has been dealing with pain for over 6 months now. The pain is affecting his ability to lay on his back at night. He describes the pain over the anterior portion of the shoulder bilaterally Idalia Sanchez PA-C [address] [place] [address], [address], [facility] 01/18/2024 13:01:01 02/05/2024 [...] 3 to 4 weeks. Idalia Sanchez PA-C [address] [place] [address], [place], [address], [facility] 02/08/2024 11:36:08 06/24/2024 [...] be happy to assist. SHAW PAUL MD [address] [place] [address], [address], [facility] 06/24/2024 19:38:24
== END 2024-10-08 11:18 | disposition home or self-care (01) ==
LOC: HO.HPS 10:27
PROVIDERS: PCP Family Medicine; Visit Provider Hospitalist
DX: J43.2 Centrilobular emphysema (principal); R06.09 Other forms of dyspnea; G47.33 Obstructive sleep apnea (adult) (pediatric); J90 Pleural effusion, not elsewhere classified; I25.10 Atherosclerotic heart disease of native coronary artery without angina pectoris
CPT/HCPCS: 99214

== ENCOUNTER → 2024-10-28 07:44 | Outpatient (REF) | payer BC, SELFPAY ==
--- OUTSIDE RECORDS SUMMARY | 2024-10-28 07:48 | XMS_ITS | Continuity of Care Document ---
Author Organization [facility] Address [address] [place] [address]- Care Team Providers Care Survey Compiler Name Role Phone Janay Patrica MARTINEZ V Primary Care Physician ( [phone] Encounter [facility] Date(s): 10/24/24 - 10/24/[address] [address]- Encounter Diagnosis Chest pain(Final) - 10/24/24 Discharge Disposition: A-D/C Home Attending Physician: Genaro York MD Admitting Physician: Genaro York MD Referring Physician: Not on Staff, Referring MD Encounter Type: Disch ES Allergies, Adverse Reactions, Alerts Substance Criticality Severity [...] Maintenance, 05/05/24 4:33:00 PM EST, Tablet, [id number], Partial fill upon patient request if the prescription is for a schedule II opioid drug., 188, cm, 12/20/24 15:00:00 EST, Height, 108.8, kg, 03/28/24 7:17:00 EST, DryWeight Start Date: 05/05/24 Stop Date: 04/30/25 Status: Ordered Quantity: 180.0 Unit: tablet Repeat number: 4 apixaban 5 mg oral tablet = 5 mg, By Mouth, 2 times a day, for 90 days, for afib, # 180 tablet, 3 Refills, Hard Stop 04/30/2511:53:00 AM EST, 05/05/24 11:53:00 AM EST, Tablet, [id number], Partial fill [...] 3 Refills, Maintenance, 05/05/24 11:53:00 AM EST,Tablet, [id number], Partial fill upon patient request if the prescription is for a scheduleII opioid drug., 188, cm, 05/02/24 14:03:00 EST, Height, 108.8, kg, 03/28/24 7:17:00 EST, Dry Weight Start Date: 05/05/24 Stop Date: 04/30/25 Status: Ordered Quantity: 90.0 Unit: tablet Repeat number: 4 furosemide 20 mg oral tablet 20 mg, 1, tablet, By Mouth, Daily, # 7 tablet, Refills 0, Tot. Refills 0, Maintenance, 10/24/24 4:47:00 PM EDT, Route to Pharmacy Electronically, [id number], Partial fill upon patient request if the prescription is for a schedule II opioid drug., 188, cm, 10/24/24 10:19:00 EDT, Height, 115.4, kg, 10/24/24 10:15:00 EDT, Dry Weight Start Date: 10/24/24 Stop Date: 10/31/24 Status: Ordered Quantity: 7.0 Unit: tablet Repeat number: 1 gabapentin 300 mg oral capsule 300 mg, 1, capsule, By Mouth, 3 times a day, PRN, # 15 capsule, Refills 0, Tot. Refills 0, Maintenance, Pain , Severe, 10/24/24 4:47:00 PM EDT, Route to Pharmacy Electronically, [id number], Partial fill upon patient request if the prescription is for a schedule II opioid drug., 188, cm, 10/24/24 10:19:00 EDT, Height, 115.4, kg, 10/24/24 10:15:00 EDT, Dry Weight Start Date: 10/24/24 Stop Date: 10/29/24 Status: Ordered Quantity: 15.0 Unit: capsule Repeat number: 1 latanoprost 0.005% ophthalmic solution 1 drops, Eyes, Both, Daily at bedtime, # 3 mL, 0 Refills, Maintenance, 03/24/24 11:18:00 PM EST, Ophth Solution, Partial fill upon patient request if the prescription is for a schedule II opioid drug. Start Date: 03/24/24 Status: Ordered Quantity: 3.0 Unit: mL Repeat number: 1 lidocaine 5% topical film 1 patch, Topically, Daily, PRN Pain , Mild, for 5 days, remove after 12 hours, # 5 patch, 0 Refills, Acute 10/29/24 4:47:00 PM EDT, 10/24/24 4:47:00 PM EDT, Film, [id number], Partial fill upon patient request if the prescription is for a schedule II opioid drug., 1 patch Topically Daily,x5 days,PRN:Pain , Mild,Instr:remove after 12 hours, 188, cm, 10/24/24 10:19:00 EDT, Height, 115.4, kg, 10/24/24 10:15:00 EDT, Dry Weight Start Date: 10/24/24 Stop Date: 10/29/24 Status: Ordered Quantity: 5.0 Unit: patch Repeat number: 1 metoprolol tartrate 75 mg oral tablet 1 tablet = 75 mg, By Mouth, 2 times a day, # 180 tablet, 3 Refills, Maintenance, 05/05/24 11:57:00 AM EST, Tablet, [id number], Partial fill upon patient request if the [...] Condition Confirmation Course Effective Dates Status Health atus Informant Glaucoma Confirmed Active S/P CABG x 3 Confirmed Active Hypercholesteremia Confirmed Active Low back pain Confirmed Active Results Radiology Reports * Exam Date Time Procedure Performing Provider Status 10/24/24 12:[address] Chest W/ Contrast Aut h (Verified) Notes: (CT Chest W/ Contrast) Reason For Exam: chest pain sob;Other: RESULT: CT Chest W/ Contrast CT Chest W/ Contrast INDICATION: Hx of Present Illness: a week and a half ago pt with fall and was evaluated, dx with L rib fx, pain has since moved to mid chest, pain is worse with movement and nonradiating, cardiac hx of triple bypass; Reason: Other:; chest pain sob; Clinical Question(s): Other:; rib fx w hemorrhage vs chf TECHNIQUE: Helical CT scan of the chest with IV contrast, formatted in 3 planes. 100 cc of Isovue 300 was administered intravenously. Weight-based protocol was performed using automatic exposure control. CTDIvol Body: 19.07 mGy, DLP Body: 844 mGy*cm. COMPARISON: 03/24/2024 FINDINGS: Client Application Support Specialist view findings, lines and tubes: None. Trachea and airways: Patent without evidence of tracheal or endobronchial lesion. Lungs and pleura: Moderate centrilobular emphysema. Mild dependent atelectasis. Small calcified granuloma in the right lower lobe. No pneumothorax. Small left pleural effusion measuring simple fluid attenuation. Mediastinum and cecilia: No mass or hematoma. No mediastinal or hilar lymphadenopathy. Small type I hiatal hernia. Heart: Heart is normal in size. No pericardial effusion. Status post CABG. Aorta: No aortic aneurysm. Pulmonary arteries: Normal caliber. No evidence of pulmonary embolism on this study performed without angiographic technique. Chest wall soft tissues: No acute abnormality. Diaphragm: Intact. Upper abdomen: Multiple subcentimeter cystic foci in the liver are too small to characterize. No evidence of splenic laceration. Bones: Acute nondisplaced fractures of the left lateral 6th-10th ribs. Acute mildly displaced fractures of the left posterior 7th-9th ribs. Prior median sternotomy. IMPRESSION: Acute nondisplaced fractures of the left lateral 6th-10th ribs. Acute mildly displaced fractures ofthe left posterior 7th-9th ribs. No pneumothorax. Small left pleural effusion measuring simple fluid attenuation without evidence of pneumothorax or active hemorrhage. WSN: [id number] Ordering Physician: Genaro York Dictated By: Johnson Mueller MD Dictated Date/Time: 10/24/24 1:14 pm Reviewed By: Johnson Mueller MD Signed By: Johnson Mueller MD Signed Date/Time: 10/24/24 1:14 pm Transcribed By: HARDIK Transcribed Date/Time: 10/24/24 1:08 pm * Exam Date Time Procedure Performing Provider Status 10/24/24 10:23 AM Chest 2 Views Frontal and Lat Auth (Verified) Notes: (Chest 2 Views Frontal and Lat) Reason For Exam: Chest Pain;Other: RESULT: Chest 2 Views Frontal and Lat Chest 2 Views Frontal and Lat Hx of Present Illness: a week and a half ago pt with fall and was evaluated, dx with L rib fx, painhas since moved to mid chest, pain is worse with movement and nonradiating, cardiac hx of triple bypass; Reason: Chest pain COMPARISON: Multiple, most recent 04/03/2024. FINDINGS: LINES AND TUBES: None. LUNGS AND PLEURA: Left basilar consolidation with small pleural effusion. The right lung is clear. No right pleural effusion. No pneumothorax. HEART, MEDIASTINUM AND CECILIA: Heart is normal in size. Status post CABG. Aorta is tortuous and partially calcified. BONES AND SOFT TISSUES: Probable old healed left-sided rib fractures. No recent examinations are available for comparison. Dedicated left rib views advised if clinically indicated to ascertain the presence of acute rib fractures. Status post median sternotomy and ACDF. IMPRESSION: Left pleural-parenchymal disease. Probable multiple old healed left-sided rib fractures. No recent comparison examination is available. Dedicated left rib views are advised if clinically indicated to exclude definite acute rib fractures. Alternatively a CT scan of the chest could be performed. An actionable message ([place]) has been communicated via the [employer] system on 10/24/2024 11:03 AM, Message ID [id number]. I have personally reviewed the images and I agree with this report. WSN: [id number] Ordering Physician: Traci Fair Dictated By: Jessica Gonzalez MD Dictated Date/Time: 10/24/24 11:03 a Reviewed By: Raul Go MD, V Signed By: Raul Go MD, V Signed Date/Time: 10/24/24 11:08 am Transcribed By: HARDIK Transcribed Date/Time: 10/24/24 10:43 am Social History Social History Type Response Smoking Status Former smoker, quit more than 30 days ago entered on: 03/25/24 Sex Sex Representation Male (finding) EKG study * Event Display: ECG 12-Lead Authored Date: Please click on pdf link to open report * Event Display: ECG 12-Lead Authored Date: Ventricular Rate: 62 BPM Atrial Rate: 62 BPM P-R Interval: 190 ms QRS Duration: 76 ms Q-T Interval: 408 ms QTC Calculation(Bazett): 414 ms P [place]: 64 degrees R [place]: -22 degrees T [place]: 68 degrees Normal sinus rhythm Possible Left atrial enlargement Low voltage QRS Possible Anterolateral infarct (cited on or before 28-Mar-2024) Abnormal ECG When compared with ECG of 04-Apr-2024 10:56, Premature atrial complexes are no longer Present Confirmed by BELLO GARCIA MD ([id number]) on 10/24/2024 8:33:04 PM [place]: BELLO GARCIA MD Note * Genaro York MD: PERFORM, SIGN, VERIFY Event Display: Patient Education Handout Authored Date: [id number] * Genaro York MD: PERFORM Event Display: Patient Education Leaflets Authored Date: [id number] Pleural Effusion ?? [id number] Pleural Effusion The pleura is a smooth double membrane that surrounds the lungs. It separates the lungs from the chest wall. One side of the pleura attaches to the lung. The other side attaches to the chest wall. This membrane makes it easier for the chest to inflate and deflate as you breathe without rubbing against the ribs. You normally have a small amount of lubricating fluid (pleural fluid) between the pleural membranes. A pleural effusion is when too much fluid collects in the space between the two pleural membranes (pleural space). As the amount of fluid increases, it begins to press on the lung. This makes it harder to take a full breath. There are two types of pleural effusion: ??? Exudative. This is caused by extra fluid related to inflammation, injury, infection, or a tumor. Empyema is when pus builds up in the pleural space. ??? Transudative. This is caused by abnormal fluid pressures inside the blood vessels. The pressure can be caused by congestive heart failure (CHF). In CHF, extra fluid collects inside the lung tissues because of a weakened heart muscle. This extra fluid then leaks into the pleural space. Pleural effusion may cause any of these symptoms: ??? Shortness of breath ??? Rapid breathing ??? Cough or hiccups ??? Sharp chest pain that hurts more with coughing or deep breathing ??? Fever ??? Fatigue A small pleural effusion may cause no symptoms at all. Treatment will be directed at the cause of the pleural effusion. If you are having a lot of troublebreathing, the healthcare provider may do a thoracentesis procedure to remove the fluid from the pleural space. This involves placing a needle or tube (catheter) through the chest wall into the pleural space. This usually gives relief right away. But the fluid may gradually return, depending on thecause. You may be given antibiotics if your pleural effusion was caused by an infection. Home care Follow these guidelines when caring for yourself at home: ??? Rest until you feel better. Exerting yourself may make your symptoms worse. ??? Your healthcare provider may have prescribed medicines totreat the underlying cause of the pleural effusion. Take these exactly as directed. ?? Follow-up care Follow up with your healthcare provider, or as advised. ?? When to get medical advice Call your healthcare provider right away if any of these occur: ??? Fever of 100.4??F (38??C) or higher, or as directed by your healthcare provider ??? Chills ??? Dry cough that doesn't get better with treatment ??? Generally not feeling well ??? Sudden inability to do daily activities ?? Call 911 Call 911 if any of the following occur: ??? Shortness of breath gets worse ??? Chest pain gets worse ??? Chest tightness or heaviness ??? Coughing up blood ??? Weakness, dizziness, or fainting ?? Last Reviewed Date: 2024 00:00:00 ?? 5520-4372 [employer]. All rights reserved. This information is not intended as a substitute for professional medical care. Always follow your healthcare professional's instructions. ?? * Jaylen NEGRON, Genaro Bustos: PERFORM Event Display: Patient Education Leaflets Authored Date: [id number] Rib Fracture ?? [id number] Rib Fracture You broke 1 or more ribs. This is called a rib fracture. Rib fractures don't need a cast like otherbones. Healing time is different for each person. Most rib fractures take weeks to months. The first 3 to 4 weeks will be the most painful. During this time??deep breathing, coughing, or changing position from sitting to lying down, may cause the broken ends to move slightly. Home care ??? Rest. Don't do any heavy lifting or strenuous exertion until the pain goes away. ??? It hurts to breathe when you have a broken rib. This puts you at risk of getting pneumonia from poorairflow through your lungs. To prevent this: o Take??10 to 15 deep breaths at least 4 times a day, or as directed. Breathe out??through pursed lips as if you are blowing up a balloon.??If possible, actually blow up a balloon or a rubber glove.??This exercise builds up pressure inside the lung and prevents collapse of the small air sacs of the lung. This exercise may cause some pain at the site ofinjury. This is normal. o You may have gotten a breathing exercise device called an incentive spirometer. Use it at least 4 times a day, or as directed. o Holding a pillow or similar soft brace against the fracture site can help reduce your discomfort while using the spirometer or when coughing or sneezing. ??? Apply an ice pack over the injured area for 15 to 20 minutes every??1 to 2??hours. Do this for??the first??24 to 48 hours. To make an ice pack, put ice cubes in a plastic bag that seals at the top. Wrap the bag in a clean, thin towel or cloth. Never put ice or an ice pack directly on your skin. Keep using??ice packs??as needed to ease pain and swelling. ??? You may use??[id number] pain medicine??to control pain, unless another pain medicine was prescribed.??If you have chronic liver or kidney disease or ever had a stomach ulcer, gastrointestinal??bleeding, or take a blood thinner, talk with your healthcare provider??before??using these medicines. ??? If your pain is not controlled, contact your provider. Sometimes a stronger pain medicine may be needed. A nerve block can be done in case of severe pain. It will numb the nerve between the ribs. ??? Follow your healthcare provider's instructions on returning to normal activities. ?? Follow-up care Follow up with your healthcare provider as advised. In rare cases, a broken rib will cause complications in the first few days that may not be clearly seen during your initial exam. This can include collapsed lung, bleeding around the lung or into the belly (abdomen), or pneumonia. So watch for thesigns below. If X-rays were taken,??you will be told of any new findings that may affect your care. ?? Call 911 Call 911 if you have: ??? Dizziness, weakness or fainting ??? Shortness of breath with or without chest discomfort ??? Cough, coughing up blood, or abdominal pain that is new or gets worse. ??? Chestpain ??? Discomfort in other areas of your upper body, such as your shoulders, jaw, neck, or arms. ?? When to get medical advice Call your healthcare provider right away if any of these occur: ??? Increasing chest pain with breathing ??? Fever of 100.4??F (38??C) or above, or as directed by your provider ??? Chills ??? Congested cough, nausea, or vomiting ??? Difficulty with routine activities, such as dressing, taking a shower, and climbing stairs. ??? Pain that is not helped by your medicines. ?? Last Reviewed Date: 2024 00:00:00 ?? 4811-0838 [employer]. All rights reserved. This information is not intended as a substitute for professional medical care. Always follow your healthcare professional's instructions. ?? Patient Care team information Care Team Personnel Name: Patrica Gustafson DO, V Position: Reference Physician Member Role: PCP Address: [address] [facility] [place] [id number] [place] Telecom: Name: Amanda Amador RN Position: [facility] RN Member Role: Primary Care Nurse Name: Radha Del Cid RN Position: [facility] Supv Member Role: Primary Care Nurse Name: Concepción Fischer RN Position: [facility] RN Member Role: Primary Care Nurse Care Team Related Persons Name: MANSI CHAVIS Insurance Providers Guarantor name: [employer] Health Plan Information #: 1 Payer: [employer] PPO Payer Identifier: [employer] Member Number: [id number] Group Number: [id number] Subscriber Identifier: [id number] Relationship to Subscriber: self Coverage Type: NA Coverage Verification Date: Telecom: Address:
== END ==
LOC: HO.SL 07:44
PROVIDERS: PCP Family Medicine; Visit Provider Hospitalist
DX: G47.33 Obstructive sleep apnea (adult) (pediatric) (principal)
CPT/HCPCS: 95806

== ENCOUNTER → 2024-10-28 08:05 | Outpatient (BNV) | payer BC, SELFPAY | PROVIDERS: PCP Family Medicine; Visit Provider Internal Medicine | DX: G47.33 Obstructive sleep apnea (adult) (pediatric) (principal); R06.83 Snoring | CPT/HCPCS: 95806 ==

== ENCOUNTER 2025-01-01 10:38 | Outpatient (AMB) | payer BC, SELFPAY ==
[2025-01-01 10:40] VITALS: BP 112/62; PULSE 64; O2SAT 97; BMI 33.4
--- NOTE | 2025-01-01 10:40 | A.OFFVIS_ITS ---
Vital Signs 01/01/25 10:40 Height 6 ft 2 in Weight 260 lb BMI 33.4 BP 112/62 Blood Pressure Location Rt brachial Position Sitting Pulse 64 Pulse Source Pulse Oximeter Pulse Oximetry (%) 97 Oxygen Delivery Method Room Air Intake Visit Reasons: Emphysema Allergies Penicillins Adverse Reaction (Severe, Verified 01/01/25 10:45) Hives HPI Comments Details: The patient is a 74-year-old gentleman former smoker who was developing worsening dyspnea on exertion. The patient states that he has smoke since he was 22. Initially with a pipe and then cigars. He really enjoys smoking and he found that as a past time. Was not until he started in the lung cancer screening program. The patient had an initial CT scan in 01/31/2022 demonstrating moderate degree of emphysema and no pulmonary nodules. Subsequently after that he had a repeat CT scan at [facility] as part of the lung cancer screening program 02/01/2024 with persistent emphysema no pulmonary nodules although he does have significant calcifications all the major vessels and mild calcifications of the coronary arteries. The patient has not been using any inhalers. He states that he had 1 inhaler when he had COVID more than a year ago enough that he did not need any further inhalers. He has been noticing the progressive dyspnea the last several months. He has gotten to the point that he can not keep up with usual activities of daily living. Moderate severity. During the visit today we did go for brief walking oximetry. His oxygen actually was good around 95-96% with activity. Although the heart rate quickly increased to 135 beats per minute. Appeared to be sinus. And the patient was visibly dyspneic 6/10 in the dyspnea score. Lungs are diminished without any wheezing or rhonchi. His cardiac exam is positive for tachycardia. Explained to the patient that at this point that although he does have emphysema need to consider underlying cardiopulmonary conditions that could be affecting his exercise capacity. 07/08/2024 the patient is here for a pulmonary follow-up visit. Since we last spoke he did have to have a cardiac catheterization and ultimately underwent a three-vessel cardiac bypass surgery. He tolerated that well and is recovering now I cardiac rehab. He still have significant shortness breath. With minimal activity still 6/10. He did undergo pulmonary function studies which she did review after he recovered from his surgery still demonstrating moderate COPD but also demonstrating moderate restriction. We also did review his last CT scan of the chest that he had back in February demonstrating moderate degree of emphysema. I also personally looked at the image from his last chest x-ray postoperatively demonstrating a moderate left-sided pleural effusion. His PFTs do demonstrate a moderate restriction which could be related to his recent surgery. Will go ahead having repeat the x-ray to make sure that that lung is expanded. In the meantime will optimize his respiratory therapy by placing him on Trelegy and also a rescue inhaler. He can use the rescue inhaler as needed also 15 minute before exercise. Once he completes cardiac rehab be a great candidate for pulmonary rehabilitation. Will plan to follow-up in 4 months if he has any issues before that he can always call for an earlier assessment. 10/08/2024 the patient is here for pulmonary follow-up visit. He continues to have significant breathlessness with minimal activity and also very tired during the daytime. Seems a fragmented sleep at this time. The patient did finish cardiac rehab been still waiting to start pulmonary rehabilitation. He did try the Trelegy inhaler but he did not help him actually made him worse with significant raspiness in irritation to the throat. He had been rinsing and gargling when using the Trelegy. [place] better once he stopped it. We again went went for walking oximetry in his oxygen does drop a little bit to about 91% but then it comes up suggesting of an electrical alternans on the monitor. He did have an echocardiogram recently at baseline and will need to review to see if there is any evidence of any cardiomyopathy WD affecting his exercise capacity. He does have an obstruction on his PFTs in does need to be on inhalers therefore I will prescribe Bevespi with the idea that he does not have inhaled steroid and should not irritate him and has is not powder either. The patient also she has try some trazodone for sleep to improve his sleep-wake cycle. He is also has daytime drowsiness with an elevated [place] score of 11/24. We still waiting for sleep study hopefully he is going to have an October. 01/01/2025 the patient is here for a pulmonary follow-up visit. The patient continues to have significant daytime drowsiness. His [place] score is elevated 11/24. The patient did have a sleep study done back in October and I did call him stating that it was severe sleep apnea with an AHI of close to 40 events an hour. Therefore we did order the CPAP them. Although the [employer] company may have not received all the paperwork. Therefore we are delayed. Will go ahead and fax over the equipment order again the script in order for the patient to start therapy as soon as possible. He will work closely with the [employer] company in order to get him the right mask. In the meantime he continues to do well continues with respiratory medications with good effect. Still has some wheezing but minimal. I did recommend he picking tech by [employer] or an air instrument to work on his air trapping. The patient is otherwise doing well he is going to start PAP therapy and will follow-up in 3-4 months to make sure that he is tolerating it. He says he has any issues prior to this he will call for further recommendations. [facility] Medical History (Updated 07/08/24 @ 20:11 by Khanh Link MD) CAD (coronary artery disease) Pleural effusion Abnormal EKG Dyspnea COPD (chronic obstructive pulmonary disease) Tachycardia Social History Patient Tobacco Use Status: Former Tobacco user Tobacco use type: Cigarette Years Smoked: 60 Years Review of Systems Const Reports daytime sleepiness and Reports snoring Eyes Reports no additional complaints ENT Reports no additional complaints Card Denies palpitations and Reports dyspnea on exertion Resp Reports dyspnea on exertion, Reports snoring and Denies wheezing GI Reports no additional complaints Musc Reports no additional complaints Skin/Breast Denies rash Endo Denies palpitations Jc/Lymph Reports no additional complaints Aller/Immun Denies wheezing Physical Exam Vital Signs: Last Vital Signs Pulse 64 01/01/25 10:40 BP 112/62 01/01/25 10:40 Pulse Ox 97 01/01/25 10:40 Oxygen Delivery Method Room Air 01/01/25 10:40 BMI result Body Mass Index 33.4 Const General: comfortable HEENT Head: Yes normocephalic Neck Neck: Yes supple Chest Chest palpation & inspection: normal inspection of the chest Resp Effort & Inspection: normal respiratory effort Auscultation: diminished lung sounds Cardio Rate: tachycardic Heart sounds: S1 normal heart sound present and S2 normal heart sound present GI Palpation (GI): Soft to palpation Skin General skin exam: no rashes or lesions noted Extrem General: Yes no clubbing, cyanosis or edema Assessment & Plan Assessment & Plan (1) COPD (chronic obstructive pulmonary disease): Code(s): J44.9 - Chronic obstructive pulmonary disease, unspecified Category: Medical Qualifiers: COPD type: emphysema Emphysema type: centrilobular Qualified Code(s): J43.2 - Centrilobular emphysema (2) Dyspnea: Code(s): R06.00 - Dyspnea, unspecified Category: Medical Qualifiers: Dyspnea type: dyspnea on exertion Qualified Code(s): R06.09 - Other forms of dyspnea (3) ANGELY (obstructive sleep apnea): Code(s): G47.33 - Obstructive sleep apnea (adult) (pediatric) Category: Medical (4) Pleural effusion: Code(s): J90 - Pleural effusion, not elsewhere classified Category: Medical (5) CAD (coronary artery disease): Comment: s/p CABG Code(s): I25.10 - Atherosclerotic heart disease of [place] coronary artery without angina pectoris Category: Medical Qualifiers: Associated angina: unspecified whether angina present Coronary Disease- Associated Artery/Lesion type: [place] artery [place] vs. transplanted heart: [place] heart Qualified Code(s): I25.10 - Atherosclerotic heart disease of na tive coronary artery without angina pectoris Plan Trelegy MARIAM as needed and prior to exercise PFTs moderate Obstruction/restriction Home PSG with severe sleep apnea, needs to start APAP YINKA continue Cardiac?pulmonary rehab F/U 3-4 months Coding Level of Care Code Est Pt Level 4 (46701) Complex EM visit Add On G2211 Diagnoses Centrilobular emphysema J43.2 COPD type: emphysema Emphysema type: centrilobular Dyspnea on exertion R06.09 Dyspnea type: dyspnea on exertion ANGELY (obstructive sleep apnea) G47.33 Pleural effusion J90 Coronary artery disease involving [place] coronary artery of [place] heart, unspecified whether angina present I25.10 Associated angina: unspecified whether angina present Coronary Disease-Associated Artery/Lesion type: [place] artery [place] vs. transplanted heart: [place] heart Time Spent (min) 17
--- OUTSIDE RECORDS SUMMARY | 2025-01-01 12:08 | XMS_ITS | Clinical Summary ---
Author Organization [facility] Address [address] [place], [place] [id number] Care Team Providers Care Yeast Maker Name Role Phone Unknown, Provider Primary Care Provider Unava ilable Social History Tobacco Use Types Packs/Day Years Used Date Smoking Tobacco: Never Assessed Sex and Gender Information Value Date Recorded Sex Assigned at Male 01/11/2023 8:32 AM EDT Legal Sex Male 8:28 AM EDT Gender Identity Unable to obtain 01/11/2023 8:32 AM EDT Sexual Orientation Not on file Last Filed Vital Signs Vital Sign Reading Time Taken Comments Blood Pressure - - Pulse - - Temperature - - Respiratory Rate - - Oxygen Saturation - - Inhaled Oxygen Concentration - - Weight 113 kg (248 lb 0.3 oz) 03/12/2023 11:01 A M EDT Height 188 cm (6' 2 ) 03/12/2023 11:01 AM EDT Body Mass Index 31.84 03/12/2023 11:01 AM EDT Plan of Treatment Health Maintenance Due Date Last Done Comments Blood Pressure 1952 Lipid Panel 1952 Depression Screening 1956 Hepatitis C Screening 1970 CT Colonography 1997 Colonoscopy 1997 Colorectal Cancer Screening 1997 FIT 1997 FOBT 1997 Multitarget Stool DNA (Cologuard) 1997 Sigmoidoscopy 1997 COVID-19 Vaccine ( season) 2024 Influenza Vaccine (#1) 2025 , 02/13/2022, 03/18/2021, Additional history exists DTaP,Tdap,and Td Vaccines (4 - Td or Tdap) 01/04/2031 01/04/2021, 02/08/2010, 07/12/1997 Pneumococcal Vaccine Completed 02/28/2022, 06/14/2020, 04/05/2015 Zoster Vaccine Completed 05/29/2022, 1105/2021, 04/18/2013 Meningococcal B Vaccines Aged Out No longer eligible based on patient's age to complete this topic Meningococcal Vaccines Aged Out No lo nger eligible based on patient's age to complete this topic Insurance MEDEX Member Subscriber Plan / Payer (Ef fective 2024-Present) Name:Dain Brewer Relation to Subscriber:Self Name:Dain Brewer Payer ID:Not on file Type:Medicare / Managed Care Address: [address] [employer] [facility] Advance Directives Documents on File Type Date Recorded 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
--- OUTSIDE RECORDS SUMMARY | 2025-01-01 12:08 | XMS_ITS | Encounter Summary ---
Author Organization [facility] Address [address] [place] [address] Care Team Providers Care Tsa Screener Name Role Phone Janay Peters DO, Diana Primary Care Provider + Reason for Visit * Reason Onset Date Comments Referral Question 12/10/2024 Encounter Details Date Type Department Care Team (Late st Contact Info) Description 12/10/2024 Telephone [facility] [address] [facility] Family Practice Department [address] [place] [address] Patrica Gustafson DO [address], [place] [id number] Referral Question Social History Tobacco Use Types Packs/Day Years Used Date Smoking Tobacco: Every Day Cigarettes 0.5 62.6 Started: 1961 Passive Smoke Exposure: Past Smokeless Tobacco: Never Alcohol Use Standard Drinks/Week Comments Not Currently 0 (1 standard drink = 0.6 oz pur e alcohol) [facility] Utilities Answer Date Recorded In the past 12 months has e [employer], gas, oil, or water [employer] threatened to shut off services in your [...] AM EST documented as of this encounter Miscellaneous Notes * Telephone Encounter - Cally Kothari - 12/10/2024 4:53 PM EDT [facility] LM on CC VM @4:17pm in regards to referral that was faxed to Infectious Disease instead of Dr. Khanh Link's office, [address] [place] [address], [address], [place], [place]. Crane Hoist Or Lift Operator is unable to find the fax number for this provider but was able to find office #[phone]. * Telephone Encounter - Bari Fernando - 12/10/2024 4:30 PM EDT Yasmin [facility] [email or web address] stating that referral for Dr Khanh Link was faxed toInfectios disease which is the wrong department. She suggested calling plastic molding operator @ [phone] to find correct department and fax/phone number. documented in this encounter Plan of Treatment Upcoming Encounters Date Type Department Care Team (Late st Contact Info) Description 01/20/2025 3:30 PM EDT Office Visit [facility] [address] [facility] Family Practice Department [address] [place] [address] Patrica Gustafson V, [address] [place] [address] 07/23/2025 3:30 PM EDT Office Visit [facility] [address] [facility] Family Practice Department [address] [place] [address] Patrica Gustafson DO [address] [place] [address] documented as of this encounter Visit Diagnoses Not on filedocumented in this encounter Care Teams Tsa Screener Relationship Specialty Start Date End Date Patrica Gustafson DO [address] [place] [address] PCP - General Family Medicine 08/17/23 documented as of this encounter
== END 2025-01-01 11:08 | disposition home or self-care (01) ==
LOC: HO.HPS 10:39
PROVIDERS: PCP Family Medicine; Visit Provider Hospitalist
DX: J43.2 Centrilobular emphysema (principal); R06.09 Other forms of dyspnea; G47.33 Obstructive sleep apnea (adult) (pediatric); J90 Pleural effusion, not elsewhere classified; I25.10 Atherosclerotic heart disease of native coronary artery without angina pectoris
CPT/HCPCS: 99214

== ENCOUNTER 2025-04-01 11:19 | Outpatient (AMB) | payer BC, SELFPAY ==
[2025-04-01 11:25] VITALS: BP 122/70; PULSE 72; O2SAT 94; BMI 33.7
--- NOTE | 2025-04-01 11:25 | A.OFFVIS_ITS ---
Vital Signs 04/01/25 11:25 Height 6 ft 2 in Weight 262 lb 5.601 oz BMI 33.7 BP 122/70 Blood Pressure Location Lt brachial Position Sitting Pulse 72 Pulse Source Pulse Oximeter Pulse Oximetry (%) 94 Oxygen Delivery Method Room Air Intake Visit Reasons: angely Black Top Roller Required: No Accompanied by: Self / Same As Patient Allergies Penicillins Adverse Reaction (Severe, Verified 04/01/25 11:27) Hives HPI Comments Details: The patient is a 74-year-old gentleman former smoker who was developing worsening dyspnea on exertion. The patient states that he has smoke since he was 22. Initially with a pipe and then cigars. He really enjoys smoking and he found that as a past time. Was not until he started in the lung cancer screening program. The patient had an initial CT scan in 01/31/2022 demonstrating moderate degree of emphysema and no pulmonary nodules. Subsequent ly after that he had a repeat CT scan at [facility] as part of the lung cancer screening program 02/01/2024 with persistent emphysema no pulmonary nodules although he does have significant calcifications all the major vessels and mild calcifications of the coronary arteries. The patient has not been using any inhalers. He states that he had 1 inhaler when he had COVID more than a year ago enough that he did not need any further inhalers. He has been noticing the progressive dyspnea the last several months. He has gotten to the point that he can not keep up with usual activities of daily living. Moderate severity. During the visit today we did go for brief walking oximetry. His oxygen actually was good around 95-96% with activity. Although the heart rate quickly increased to 135 beats per minute. Appeared to be sinus. And the patient was visibly dyspneic 6/10 in the dyspnea score. Lungs are diminished without any wheezing or rhonchi. His cardiac exam is positive for tachycardia. Explained to the patient that at this point that although he does have emphysema need to consider underlying cardiopulmonary conditions that could be affecting his exercise capacity. 07/08/2024 the patient is here for a pulmonary follow-up visit. Since we last spoke he did have to have a cardiac catheterization and ultimately underwent a three-vessel cardiac bypass surgery. He tolerated that well and is recovering now I cardiac rehab. He still have significant shortness breath. With minimal activity still 6/10. He did undergo pulmonary function studies which she did review after he recovered from his surgery still demonstrating moderate COPD but also demonstrating moderate restriction. We also did review his last CT scan of the chest that he had back in February demonstrating moderate degree of emphysema. I also personally looked at the image from his last chest x-ray postoperatively demonstrating a moderate left-sided pleural effusion. His PFTs do demonstrate a moderate restriction which could be related to his recent surgery. Will go ahead having repeat the x-ray to make sure that that lung is expanded. In the meantime will optimize his respiratory therapy by placing him on Trelegy and also a rescue inhaler. He can use the rescue inhaler as needed also 15 minute before exercise. Once he completes cardiac rehab be a great candidate for pulmonary rehabilitation. Will plan to follow-up in 4 months if he has any issues before that he can always call for an earlier assessment. 10/08/2024 the patient is here for pulmonary follow-up visit. He continues to have significant breathlessness with minimal activity and also very tired during the daytime. Seems a fragmented sleep at this time. The patient did finish cardiac rehab been still waiting to start pulmonary rehabilitation. He did try the Trelegy inhaler but he did not help him actually made him worse with significant raspiness in irritation to the throat. He had been rinsing and gargling when using the Trelegy. [place] better once he stopped it. We again went went for walking oximetry in his oxygen does drop a little bit to about 91% but then it comes up suggesting of an electrical alternans on the monitor. He did have an echocardiogram recently at baseline and will need to review to see if there is any evidence of any cardiomyopathy WD affecting his exercise capacity. He does have an obstruction on his PFTs in does need to be on inhalers therefore I will prescribe Bevespi with the idea that he does not have inhaled steroid and should not irritate him and has is not powder either. The patient also she has try some trazodone for sleep to improve his sleep-wake cycle. He is also has daytime drowsiness with an elevated Mica score of 11/24. We still waiting for sleep study hopefully he is going to have an Sruthi. 01/01/2025 the patient is here for a pulmonary follow-up visit. The patient continues to have significant daytime drowsiness. His Mica score is elevated 11/24. The patient did have a sleep study done back in October and I did call him stating that it was severe sleep apnea with an AHI of close to 40 events an hour. Therefore we did order the CPAP them. Although the [employer] company may have not received all the paperwork. Therefore we are delayed. Will go ahead and fax over the equipment order again the script in order for the patient to start therapy as soon as possible. He will work closely with the [employer] company in order to get him the right mask. In the meantime he continues to do well continues with respiratory medications with good effect. Still has some wheezing but minimal. 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 The patient is otherwise doing well he is going to start PAP therapy and will follow-up in 3-4 months to make sure that he is tolerating it. He says he has any issues prior to this he will call for further recommendations. 04/01/2025 the patient is here for pulmonary follow-up visit. The patient is overall doing okay. He is using the CPAP every night CPAP therapy has been affecting beneficial. His AHI is down to 1.9 which is very good. He does use it for more than 4 hours a night. Although he still wakes up tired. And also he has had issues with the sinuses. I did recommend nasal sprays but he declines using any nasal therapy. Although he is willing to use the Neti bottle. I did show him on use it and he is going to start using it we distilled water. In order to clear out the sinuses before using the PAP therapy with a nasal pillows. In the meantime the respiratory inhalers have been affecting beneficial. He has not had any need for rescue therapy. The patient was recently call for lung cancer screening program. He should call for make an appointment as this is his yearly CAT scan. In addition to that the patient continues to follow closely with Cardiology. He understands that the use of PAP therapy will be treating his cardiovascular risk factors. Therefore he is going to continue for now. We did talk about alternatives to the CPAP but he understands the CPAP is the best option right now. If he continues to have issues with sinuses she can consider fullface mask but right now he likes a small nasal pillow mask. The patient will follow-up in the summer of 2025 if any issues arise she can always call for further recommendations. [facility] Medical History (Updated 07/08/24 @ 20:11 by Khanh Link MD) CAD (coronary artery disease) Pleural effusion Abnormal EKG Dyspnea COPD (chronic obstructive pulmonary disease) Tachycardia Social History Patient Tobacco Use Status: Former Tobacco user Tobacco use type: Cigarette Years Smoked: 60 Years Review of Systems Const Reports daytime sleepiness and Reports snoring Eyes Reports no additional complaints ENT Reports no additional complaints, Reports nasal congestion and Reports nasal discharge Card Denies palpitations and Reports dyspnea on exertion Resp Reports dyspnea on exertion, Reports snoring and Denies wheezing GI Reports no additional complaints Musc Reports no additional complaints Skin/Breast Denies rash Endo Denies palpitations Jc/Lymph Reports no additional complaints Aller/Immun Denies wheezing Physical Exam Vital Signs: Last Vital Signs Pulse 72 04/01/25 11:25 BP 122/70 04/01/25 11:25 Pulse Ox 94 04/01/25 11:25 Oxygen Delivery Method Room Air 04/01/25 11:25 BMI result Body Mass Index 33.7 Const General: comfortable HEENT Head: Yes normocephalic Neck Neck: Yes supple Chest Chest palpation & inspection: normal inspection of the chest Resp Effort & Inspection: normal respiratory effort Auscultation: diminished lung sounds Cardio Rate: tachycardic Heart sounds: S1 normal heart sound present and S2 normal heart sound present GI Palpation (GI): Soft to palpation Skin General skin exam: no rashes or lesions noted Extrem General: Yes no clubbing, cyanosis or edema Assessment & Plan Assessment & Plan (1) COPD (chronic obstructive pulmonary disease): Code(s): J44.9 - Chronic obstructive pulmonary disease, unspecified Category: Medical Qualifiers: COPD type: emphysema Emphysema type: centrilobular Qualified Code(s): J43.2 - Centrilobular emphysema (2) Dyspnea: Code(s): R06.00 - Dyspnea, unspecified Category: Medical Qualifiers: Dyspnea type: dyspnea on exertion Qualified Code(s): R06.09 - Other forms of dyspnea (3) ANGELY (obstructive sleep apnea): Code(s): G47.33 - Obstructive sleep apnea (adult) (pediatric) Category: Medical (4) Pleural effusion: Code(s): J90 - Pleural effusion, not elsewhere classified Category: Medical (5) CAD (coronary artery disease): Comment: s/p CABG Code(s): I25.10 - Atherosclerotic heart disease of [place] coronary artery without angina pectoris Category: Medical Qualifiers: Associated angina: unspecified whether angina present Coronary Disease- Associated Artery/Lesion type: [place] artery [place] vs. transplanted heart: [place] heart Qualified Code(s): I25.10 - Atherosclerotic heart disease of [place] coronary artery without angina pectoris Plan Trelegy MARIAM as needed and prior to exercise PFTs moderate Obstruction/restriction continue APAP with pillows start Neti bottle prior to APAP therapy F/U 8-10 months Coding Level of Care Code Est Pt Level 4 (78918) Complex EM visit Add On G2211 Diagnoses Centrilobular emphysema J43.2 COPD type: emphysema Emphysema type: centrilobular Dyspnea on exertion R06.09 Dyspnea type: dyspnea on exertion ANGELY (obstructive sleep apnea) G47.33 Pleural effusion J90 Coronary artery disease involving [place] coronary artery of [place] heart, unspecified whether angina present I25.10 Associated angina: unspecified whether angina present Coronary Disease-Associated Artery/Lesion type: [place] artery [place] vs. transplanted heart: [place] heart Time Spent (min) 17
--- OUTSIDE RECORDS SUMMARY | 2025-04-01 22:19 | XMS_ITS | Clinical Summary ---
Author Organization [facility] Address [address] [place] [address] Care Team Providers Care Support Services Coordinator Name Role Phone Janay Peters DO, Diana Primary Care Provider + Allergies Active Allergy Reactions Criticality Noted Date Comments Cat Dander Unknown 07/12/2023 House Dust Unknown 07/12/2023 Mold Unknown 07/12/2023 Penicillins Unknown Medications latanoprost (XALATAN) 0.005% ophthalmic solution SMARTSIG:In Eye(s) Active atorvastatin (LIPITOR) 80 mg tablet Take 80 mg by mouth once a day. Active aspirin 81 mg EC tablet Take 81 mg by mouth once a day. Active acetaminophen (TYLENOL) 325 mg tablet Take 650 mg by mouth. 04/05/2024 Active apixaban (ELIQUIS) 5 mg tablet Take 5 mg by mouth. 04/05/2024 Active albuterol (PROAIR HFA,VENTOLIN HFA) 90 mcg inhaler SMARTSI Puff(s) By Mouth Every 6 Hours PRN 07/08/2024 Active Stiolto Respimat 2.5-2.5 mcg/actuation SMARTSI Puff(s) By Mouth Daily 10/09/2024 Active metoprolol tartrate (LOPRESSOR) 100 mg tablet Take 100 mg by mouth 2 times a day. Active furosemide (LASIX) 20 mg tablet Take 20 mg by mouth once a day. 11/07/2024 Active Active Problems Problem Noted Date Diagnosed Date History of non-ST elevation myocardial infarctio n (NSTEMI) 01/20/2025 Assessment & Plan (01/21/2025 9:46 PM EDT): Currently asymptomatic. 03/24/24 [facility] hospitalization for chest pain and VILLAREAL. Troponins were flat. 03/28 CABG x 3 with post op Afib. Plavix and aspirin for 1 year for NSTEMI. Follows with sports bookmaker Dr. Castro. Chronic obstructive pulmonary disease 08/06/2024 Arthralgia of right elbow 06/24/2024 NSTEMI (non-ST elevated myocardial infarction) 1 07/08/2023 Assessment & Plan (11/09/2024 10:17 PM EDT): Currently asymptomatic. 03/24/24 [facility] hospitalization for chest pain and VILLAREAL. Troponins were flat. 03/28 CABG x 3 with post op Afib. Plavix and aspirin for 1 year for NSTEMI. Will be starting cardiac rehab in May. Will be seeing sports bookmaker Dr. Castro in October. Assessment & Plan (07/30/2024 2:08 PM EDT): Currently asymptomatic. 03/24/24 [facility] hospitalization for chest pain and VILLAREAL. Troponins were flat. 03/28 CABG x 3 with post op Afib. Plavix and aspirin for 1 year for NSTEMI. Will be starting cardiac rehab in May. Will be seeing sports bookmaker Dr. Castro in October. Assessment & Plan (05/07/2024 9:55 PM EST): 03/24/24 [facility] hospitalization for chest pain and VILLAREAL. Troponins were flat. 03/28 CABG x 3 with post op Afib. Plavix and aspirin for 1 year for NSTEMI. Will be starting cardiac rehab in May. Will be seeing sports bookmaker Dr. Castro on May 02. 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 03/24/24 [facility] hospitalization for chest pain and VILLAREAL. Troponins were flat. 03/28 CABG x 3 with post op Afib. Plavix and aspirin for 1 year for NSTEMI. Follows with sports bookmaker Dr. Castro. Assessment & Plan (11/09/2024 10:17 PM EDT): As above. Assessment & Plan (07/30/2024 2:08 PM EDT): As above. Assessment & Plan (05/07/2024 9:55 PM EST): As above. A-fib 05/07/2024 Assessment & Plan (01/21/2025 9:46 PM EDT): Post CABG Afib. Continue beta rosalind, eliquis as prescribed by sports bookmaker. Assessment & Plan (11/09/2024 10:17 PM EDT): Post CABG Afib. Continue beta rosalind, eliquis as prescribed by sports bookmaker. Assessment & Plan (07/30/2024 2:08 PM EDT): Post CABG Afib. Continue beta rosalind, eliquis as prescribed by sports bookmaker. Assessment & Plan (05/07/2024 9:55 PM EST): Post CABG Afib. Continue beta rosalind, eliquis as prescribed by sports bookmaker. Emphysema of lung 05/07/2024 Assessment & Plan (01/21/2025 9:46 PM EDT): 01/2024 CT chest showed evidence of pulmonary emphysema but no suspicious pulmonary nodules seen. Recommend pulmonary follow up and repeat CT chest in 12 months. Assessment & Plan (11/09/2024 10:17 PM EDT): 01/2024 CT chest showed evidence of pulmonary emphysema but no suspicious pulmonary nodules seen. Recommend pulmonary follow up and repeat CT chest in 12 months. Assessment & Plan (07/30/2024 2:08 PM EDT): 01/2024 CT chest showed evidence of pulmonary [...] joints 02/08/2024 Subacromial bursitis of both shoulders Nail dystrophy 11/06/2023 Seborrheic keratosis 07/12/2023 Allergic rhinitis 05/16/2023 At [...] at this time. Lesion of liver 05/16/2023 Assessment & Plan (01/21/2025 9:46 PM EDT): Unclear history of a liver lesion. Will follow up with CT abd/pelvis to also evaluate for hernia. Hx of left inguinal hernia repair 01/05/[address] Barney. 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 Osteoarthritis 05/16/2023 Raynaud disease 05/16/2023 Rectal hemorrhage 05/16/2023 Actinic keratosis 05/16/2023 Tubular adenoma of colon 05/16/2023 Urinary hesitancy 05/16/2023 Vitamin D deficiency 05/16/2023 Flu-like symptoms 05/16/2023 Tear of left rotator cuff 12/26/2022 Tendinitis of long head of biceps brachii of lef t shoulder 12/26/2022 Dysplastic nevus 10/20/2022 Eczema 02/10/2022 Capillary disease 10/14/2020 Disorder of pigmentation 10/14/2020 Benign neoplasm of skin 10/14/2020 Hypopigmentation of skin 10/14/2020 Other melanin hyperpigmentation 07/13/2020 Hemangioma of skin and subcutaneous tissue 07/13 Neoplasm of uncertain behavior of skin Melanocytic nevi, unspecified 07/13/2020 Disc degeneration, lumbar 09/14/2016 Wears glasses 03/31/2010 Overview (07/12/2023): Recorded 03/31/2010 1:29PM by Liz Meraz, Historical Summary; Promoted; acuity set as * Backache 03/31/2010 Overview (07/12/2023): Recorded 03/31/2010 1:28PM by Liz Meraz, Historical Summary; Promoted; acuity set as * Resolved Problems Problem Noted Date Diagnosed Date Resolved Date COVID-19 05/16/2023 05/07/2024 Former smoker 05/16/2023 01/17/2024 Encounters Date Type Department Care Team Description 03/30/[address] Practice Department [address] [place] [id number] Patrica Gustafson DO Overdue order 02/24/2025 7:25 AM EDT - 02/24/2025 7:55 AM EDT Surgery [address] [address] Getachew Cervantes MD COLONOSCOPY SCREENING, LOW RISK WITH POSSIBLE MODERATE SEDATION [24532 (CPT )] 02/24/2025 7:25 AM EDT Anesthesia Event [address] [address] Polo Darnell MD 02/24/2025 6:36 AM EDT - 02/24/2025 8:38 AM EDT Hospital Encounter [address] [address] Getachew Cervantes MD History of colon polyps Discharge Disposition: Home or Self Care () 02/18/2025 Results Follow-Up [address] Practice Department [address] [place] [phone] Patrica Gustafson DO 02/17/2025 6:58 AM EDT - 02/17/2025 11:59 PM EDT Hospital Encounter [address] [address] Lesion of liver; LLQ pain Discharge Disposition: Home or Self Care () 02/15/2025 Results Follow-Up [address] Practice Department [address] [place] [phone] Patrica Gustafson V, DO Results 01/30/[address] [facility] Interventional Radiology [address] [place] [id number] Ronen Arzola MD 01/30/2025 Orders Only [address] Department [address] [place] [phone] Patrica Gustafson V, DO Lesion of liver (Primary Dx); LLQ pain 01/29/[address] [address] Patrica Gustafson V, DO General Medical Concern 01/22/2025 Orders Only [address] Department [address] [place] [phone] Patrica Gustafson V, DO History of smoking (Primary Dx) 01/20/2025 3:30 PM EDT Office Visit [address] [address] Patrica Gustafson V, DO LLQ pain (Primary Dx); History of non-ST elevation myocardial infarction (NSTEMI); S/P CABG x 3; Atrial fibrillation, unspecified type (HCC); Pulmonary emphysema, unspecified emphysema type (HCC); Lesion of liver; Healthcare maintenance from Last 3 Months Immunizations Immunization Administration Dates Next Due Covid-19 Vaccine, J&J, Vecto r-nr, Rs-ad26, PF, 0.5 mL 05/22/2021,11/27/2020 INFLUENZA, SPLIT VIRUS, TRIVALENT, PF 05/30/2016 Influenza, High Dose Seasona l, Preservative Free (FLUZONE HIGH-DOSE) 03/18/2021 Influenza, High Dose Seasona l, Quadrivalent PF 02/13/2022,03/18/2021 Influenza, Injectable, Madin [place] Canine Kidney, Preservative Free, Quadrivalent 03/02/2017 Influenza, Injectable, Quadr ivalent, Preservative Free 05/30/2016 Influenza, Trivalent, Adjuva nted, PF (FLUAD) 01/17/2024,01/28/2021 Influenza, Trivalent, MDV, Injectable 04/05/2015 ,04/02/2014,03/31/2013 Influenza, Unspecified 02/13/2022,04/04/2020 Pneumococcal Conjugate Vaccine, 13 Valent 2020 Pneumococcal Polysaccharide Vaccine, 23 Valent 04/05/2015 Pneumococcal conjugate PCV20 ,polysaccharide [id number] conjugate, adjuvant, PF (Prevnar 20) 02/28/2022 Tetanus [...] Date Smoking Tobacco: Every Day Cigarettes 0.5 62.9 Started: 1961 Passive Smoke Exposure: Past Smokeless Tobacco: Never Tobacco Cessation:Ready to Q uit: Not Asked; Counseling Given: Not Answered Alcohol Use Standard Drinks/Week Comments Not Currently 0 (1 standard drink = 0.6 oz pur e alcohol) [facility] Utilities Answer Date Recorded In the past 12 months has e [employer], or water [employer] threatened to shut off services in your [...] Sign Reading Time Taken Comments Blood Pressure 112/57 02/24/2025 8:08 AM EDT Pulse 58 02/24/2025 8:08 AM EDT Temperature 36.1 C (97 F) 02/24/2025 6:52 AM EDT Respiratory Rate 18 02/24/2025 8:08 AM EDT Oxygen Saturation 96% 02/24/2025 8:08 AM EDT Inhaled Oxygen Concentration - - Weight 112.9 kg (249 lb) 02/24/2025 6:52 AM EDT Height 188 cm (6' 2 ) 02/24/2025 6:52 AM EDT Body Mass Index 31.97 02/24/2025 6:52 AM EDT Plan of Treatment Upcoming Encounters Date Type Department Care Team (Late st Contact Info) Description 04/21/2025 3:00 PM EST Follow-Up [address] Family Practice Department [address] [place] [phone] Patrica Gustafson V, DO [address] [place] [address] 07/23/2025 3:30 PM EDT Office Visit [address] Family Practice Department [address] [place] [phone] Patrica Gustafson V, DO [address] [place] [address] Health Maintenance Due Date Last Done Comments Vishal 1950 FOBT / Fit Test 1950 Sigmoidoscopy 1950 COVID-19 Vaccine (3 - season) 2025 05/22/2021, 11/27/2020 CT Lung Cancer Screening (12 months, previous LungRADS 1 or 2) 02/07/2025 02/08/2024, 02/03/2022, 02/01/2021 Depression Screening and Follow-Up 07/17/2025 07/17/2024 Social Drivers of Health Annual Screening 07/17/2025 07/17/2024 Basic Metabolic Panel 01/22/2026 01/22/2025 , 07/28/2024, 07/13/2023, Additional history exists Fall Risk Screening 02/24/2026 02/24/2025 DTaP,Tdap,and Td Vaccines (3 - Td or Tdap) 01/04/2031 01/04/2021, 02/08/2010, 07/12/1997 Colon Cancer Screening 02/24/2035 Colonoscopy 02/24/2035 02/24/2025, 02/11, 02/25/2020, Additional history exists Pneumococcal Vaccine: 50+ Years Completed 02/28/2022, 06/14/2020, 04/05/2015 Zoster Vaccines Completed 05/29/2022, 05/2021, 04/18/2013 Hepatitis C Screening Completed 01/01/2023, 023 Health Care Proxy Review Completed 07/17/2024, 06/15 Alcohol/Substance Use Screening Completed 01/20/2025 Influenza Vaccine Completed 01/23/2025, , 02/13/2022, Additional history exists RSV Vaccine (60+ years old and patients) Completed 01/29/2025 Abdominal Aortic Aneurysm (AAA) Screening Completed 02/17/2025, 12/10/2019 Hepatitis B Vaccines Aged Out No long er eligible based on patient's age to complete this topic Procedures * Due to [place] state law, this organization might not be sharing negative HIV tests. Procedure Name Priority Date/Time Associated Diagnosis Comments TISSUE EXAM - DENISE GÓMEZ Routine 02/24/2025 7:48 AM EDT History of colon polyps WY COLONOSCOPY FLX DX W/COLLJ SPEC WHEN PFRMD 02/24/2025 7:24 AM EDT History of colon polyps PATHOLOGY - SCANNED 02/24/2025 COLONOSCOPY 02/24/2025 CT ABDOMEN PELVIS W CONTRAST Routine 02/17/2025 7:13 AM EDT Lesion of liver LLQ pain PSA Routine 01/22/2025 8:06 AM EDT Healthcare maintenance COMPREHENSIVE METABOLIC PANEL Routine 01/22/2025 8:06 AM EDT LLQ pain CBC Routine 01/22/2025 8:06 AM EDT LLQ pain CT LUNG CANCER SCREENING 12 MONTHS ANNUAL FOLLOW UP Routine 02/08/2024 2:04 PM EDT Cigarette nicotine dependence without complication HEPATITIS PANEL, ACUTE Routine 01/01/2023 9:24 AM EDT from Last 3 Months or Most Recently Relevant to Health Maintenance Results * Due to [place] state law, this organization might not be sharing negative HIV tests. * Tissue Exam - [place] only (02/24/2025 7:48 AM EDT) Tissue Exam Result SEE DETAILS 02/25/2025 12:00 AM EDT [facility] Comment: FINAL DIAGNOSIS Colon, ascending, polypectomy: No tissue present for evaluation; vegetable material only. Magda Trent M.D. Electronic Signature: 02/25/2025 11:01 Clinical History High risk colon cancer surveillance, personal history of adenomatous colonic polyps; polyp Microscopic Description Microscopic sections examined. Macroscopic Description Received in formalin are 2 pieces of yellow vegetable material measuring less than 1 and 2 mm in greatest dimension. Definitive soft tissue is not grossly identified. The specimen is totally submitted in cassette A1. Excision to formalin time: immediate; total time in formalin: 7 hours. (KR) Unless otherwise stated, all tissue is formalin-fixed and paraffin-embedded. Grossing and technical work performed at [facility] ([facility], [address] [place] [address]; ; [id number]; CLIA #[id number] All professional pathology services performed at [facility] ([address] [place] [id number]; ; CLIA #[id number]) Note: Some or all of the tests utilized in this case may be laboratory developed tests (LDT's) and may use class I analyte specific reagents (ASR). These tests were developed for clinical purposes and their performance characteristics determined by [facility] on tissue fixed in 10% neutral buffered formalin. Other fixatives have not been validated, and therefore results on tissue with such fixation should be interpreted with caution and in the clinical context. [facility] are qualified under the CLIA 1988 documents to provide high-complexity clinical laboratory testing. All controls are reviewed and deemed appropriate. Tissue Entire ascending colon / Unknown Non-Blood Collection / Unknown 02/24/2025 7:48 AM EDT 02/24/2025 9:25 AM EDT Comment:Pre-op diagnosis: History of colon polyps [Z86.0100] Getachew Cervantes MD LAB PATH/CYTO ([facility] Result [facility] [address] [place] [address], [place] * PATHOLOGY - SCANNED (02/24/2025) us Onbase Scan Max SCANNED PROCEDURES Final Resu lt * COLONOSCOPY (02/24/2025) Narrative Procedure Note Getachew Cervantes MD - 02/24/2025 6:14 AM EDT [facility] Patient Name: Dain Brewer Procedure Date: 02/24/2025 6:14 AM Date of : 1950 Admit Type: Outpatient Age: 74 Room: GI PROCEDURE Gender: Male Note Status: Finalized Attending MD: Getachew Cervantes MD, Procedure: Colonoscopy Indications: High risk colon cancer surveillance: Personal history of adenomatous colonic polyps Comorbidities Providers: Getachew Cervantes MD Referring MD: Patrica Gustafson V (Referring MD) Requesting Provider: Medicines: See the Anesthesia note for documentation of the administered medications Complications: No immediate complications. Estimated Blood Loss: Estimated blood loss: none. Procedure: After I obtained informed consent, the scope was passed under direct vision. Throughout theprocedure, the patient's blood pressure, pulse, and oxygen saturations were monitored continuously. The Colonoscope was introduced through the anus and advanced to the cecum, identified by appendiceal orifice and ileocecal valve. The colonoscopy was performed without difficulty. The patient tolerated the procedure well. The quality of the bowel preparation was good. informed consent included but was not limited to fever, infections, bleeding, perforation, missed pathology, damage to a majororgan and lack of guarantee of benefit Findings: The perianal and digital rectal examinations were normal. A few small-mouthed diverticula were found in the sigmoid colon. A 3 mm polyp was found in the ascending colon. The polyp was sessile. The polyp was removed with a cold snare. Resection and retrieval were complete. A 3 mm polyp was found in the sigmoid colon. The polyp was sessile.The polyp was removed with a cold snare. Resection was complete, but the polyp tissue was not retrieved. No additional abnormalities were found on retroflexion. Impression: - Diverticulosis in the sigmoid colon. - One 3 mm polyp in the ascending colon, removedwith a cold snare. Resected and retrieved. - One 3 mm polyp in the sigmoid colon, removed witha cold snare. Complete resection. Polyp tissue not retrieved. Recommendation: - Await pathology results. - Repeat colonoscopy in 5 years for surveillance. Getachew Cervantes MD 02/24/2025 7:55:21 AM This report has been signed electronically. Number of Addenda: 0 Note Initiated On: 02/24/2025 6:14 AM us Getachew Cervantes MD PROVATION PROCEDURES Final Re sult * CT Abdomen Pelvis with Contrast (02/17/2025 7:13 AM EDT) Anatomical Region Laterality Modality Body Computed Tomogra phy 02/17/2025 8:25 AM EDT Impressions 02/17/2025 10:57 AM EDT 1. Mild wall thickening and mild stranding involving the anterior urinary bladder, may represent cystitis. 2. Colonic diverticulosis without acute diverticulitis. 3. Additional findings, as described. Findings of impressions #1 and #[address] Gustafson via [employer] secure chat at 10:57 a.m. on 02/17/2025. If this radiology report contains a blank impression section, it is an incomplete radiology report. Please contact the interpreting radiologist or applicable radiology division as soon as possible to obtain the completed interpretation. Workstation ID: [id number] Narrative 02/17/2025 10:57 AM EDT EXAMINATION: CT ABDOMEN PELVIS W CONTRAST INDICATION: LLQ abdominal pain K76.9 - I10 - Liver disease, unspecified K76.9 - I10 - Liver disease, unspecified - liver lesion. TECHNIQUE: Images of the abdomen and pelvis were obtained with intravenous contrast. Coronal and sagittal reformats were generated. COMPARISON: Prior MRI 02/23/2021 FINDINGS: LOWER THORAX: Emphysematous changes. Bilateral atelectasis. HEPATOBILIARY: Multiple small hepatic lesions are too small to characterize, overall not significantly changed from 02/23/2021, likely small cysts. Patent portal and hepatic veins. Mild there is no biliary ductal dilatation. The gallbladder is unremarkable. SPLEEN: No splenomegaly or focal lesions are identified. PANCREAS: No focal masses or ductal dilatation. ADRENALS: Mild lobulated thickening/mild nodularity bilaterally is similar to 02/23/2021. KIDNEYS/URETERS: No hydronephrosis, stones, or solid lesions. Incidental extrarenal pelves bilaterally. Small bilateral renal hypodensities, too small to characterize. GI TRACT: Tiny hiatal hernia. No dilated small bowel loops or small bowel wall thickening. Appendix is normal. Colonic diverticulosis without acute diverticulitis. PERITONEUM / RETROPERITONEUM: No free air or fluid. LYMPH NODES: No lymphadenopathy. VESSELS: Atherosclerotic calcifications and mild tortuosity/mild ectasia of the abdominal aorta. Maximal diameter 2.4 cm. Atherosclerotic disease also involves the proximal SMA, with mild narrowing. PELVIC ORGANS/BLADDER: Mild wall thickening and mild stranding involving the anterior aspect of the urinary bladder. BONES AND SOFT TISSUES: Prior median sternotomy. Degenerative changes of the spine. Resulting Agency Comment [id number] Procedure Note Mickey Solano MD - 02/17/2025 EXAMINATION: CT ABDOMEN PELVIS W CONTRAST INDICATION: LLQ abdominal pain K76.9 - I10 - Liver disease, [id number] - I10 - Liver disease, unspecified - liver lesion. TECHNIQUE: Images of the abdomen and pelvis were obtained with intravenouscontrast. Coronal and sagittal reformats were generated. COMPARISON: Prior MRI 02/23/2021 FINDINGS: LOWER THORAX: Emphysematous changes. Bilateral atelectasis. HEPATOBILIARY: Multiple small hepatic lesions are too small tocharacterize, overall not significantly changed from 02/23/2021, likelysmall cysts. Patent portal and hepatic veins. Mild there is no biliaryductal dilatation. The gallbladder is unremarkable. SPLEEN: No splenomegaly or focal lesions are identified. PANCREAS: No focal masses or ductal dilatation. ADRENALS: Mild lobulated thickening/mild nodularity bilaterally is similarto 02/23/2021. KIDNEYS/URETERS: No hydronephrosis, stones, or solid lesions. Incidentalextrarenal pelves bilaterally. Small bilateral renal hypodensities, toosmall to characterize. GI TRACT: Tiny hiatal hernia. No dilated small bowel loops or small bowelwall thickening. Appendix is normal. Colonic diverticulosis withoutacute diverticulitis. PERITONEUM / RETROPERITONEUM: No free air or fluid. LYMPH NODES: No lymphadenopathy. VESSELS: Atherosclerotic calcifications and mild tortuosity/mild ectasiaof the abdominal aorta. Maximal diameter 2.4 cm. Atherosclerotic diseasealso involves the proximal SMA, with mild narrowing. PELVIC ORGANS/BLADDER: Mild wall thickening and mild stranding involvingthe anterior aspect of the urinary bladder. BONES AND SOFT TISSUES: Prior median sternotomy. Degenerative changes ofthe spine. IMPRESSION: 1. Mild wall thickening and mild stranding involving the anterior urinarybladder, may represent cystitis. 2. Colonic diverticulosis without acute diverticulitis. 3. Additional findings, as described. Findings of impressions #1 and #[address] Gustafson via [employer] securechat at 10:57 a.m. on 02/17/2025. If this radiology report contains a blank impression section, it is anincomplete radiology report. Please contact the interpreting radiologistor applicable radiology division as soon as possible to obtain thecompleted interpretation. Workstation ID: [id number] us Patrica Gustafson V, DO IMG CT PROCEDURES Final Result * CBC (01/22/2025 8:06 AM EDT) WBC 5.9 4.8 - 10.8 10*3/uL 01/22/2025 2:23 PM EDT [facility] RBC 4.82 4.70 - 6.10 10*6/uL 01/22/2025 2:23 PM EDT [facility] Hemoglobin 14.8 13.7 - 16.5 g/dL 01/22/2025 2:23 PM EDT [facility] Hematocrit 43.6 40.5 - 48.5 % 01/22/2025 2:23 PM EDT [facility] MCV 90.5 80.0 - 94.0 fL 01/22/2025 2:23 PM EDT [facility] MCH 30.7 26.0 - 34.0 pg 01/22/2025 2:23 PM EDT [facility] MCHC 33.9 31.0 - 36.0 g/dL 01/22/2025 2:23 PM EDT [facility] RDW 12.6 12.0 - 15.0 % 01/22/2025 2:23 PM EDT [facility] Platelets 218 140 - 440 10*3/uL 01/22/2025 2:23 PM EDT [facility] MPV 10.7 9.4 - 12.4 fL 01/22/2025 2:23 PM EDT [facility] RDW Standard Deviation 42.2 35.1 - 43.9 fL 01/22/2025 2:23 PM EDT [facility] Blood Structure of peripheral vein / Unknown Venipuncture / Unknown 01/22/2025 8:06 AM EDT 01/22/2025 12:59 PM EDT us Patrica Immenhausen V, DO LAB BLOOD ORDERABLES Fin al Result [facility] [address] [address], * PSA (01/22/2025 8:06 AM EDT) PSA 1.710 <=4.000 ng/mL 01/22/2025 3:04 PM EDT [facility] Blood Structure of peripheral vein / Unknown Venipuncture / Unknown 01/22/2025 8:06 AM EDT 01/22/2025 12:59 PM EDT us Patrica Immenhausen V, DO LAB BLOOD ORDERABLES Fin al Result [facility] [address] [facility] [address] [address] [place] [address], [place] [phone] * Comprehensive Metabolic Panel (01/22/2025 8:06 AM EDT) NA 139 136 - 145 mmol/L 01/22/2025 3:04 PM EDT [facility] K 4.6 3.5 - 5.1 mmol/L 01/22/2025 3:04 PM EDT [facility] Cl 104 98 - 109 mmol/L 01/22/2025 3:04 PM EDT [facility] CO2 26 22 - 32 mmol/L 01/22/2025 3:04 PM EDT [facility] Anion Gap 14 >=0 01/22/2025 3:04 PM EDT [facility] Glucose 84 60 - 99 mg/dL 01/22/2025 3:04 PM EDT [facility] Creatinine 1.05 0.50 - 1.12 mg/dL 01/22/2025 3:04 PM EDT [facility] Calcium 10.0 8.4 - 10.4 mg/dL 01/22/2025 3:04 PM EDT [facility] Total Protein 6.6 6.6 - 8.7 g/dL 01/22/2025 3:04 PM EDT [facility] Albumin 4.2 3.5 - 5.0 g/dL 01/22/2025 3:04 PM EDT [facility] Bilirubin, Total 0.6 0.2 - 1.2 mg/dL 01/22/2025 3:04 PM EDT [facility] Alkaline Phosphatase 108 40 - 129 U/L 01/22/2025 3:04 PM EDT [facility] AST 40 0 - 40 U/L 01/22/2025 3:04 PM EDT [facility] ALT 38 <=41 U/L 01/22/2025 3:04 PM EDT [facility] BUN 19 8 - 23 mg/dL 01/22/2025 3:04 PM EDT [facility] eGFR 75 >=60 mL/min/1. 73m2 01/22/2025 3:04 PM EDT [facility] Comment:The estimated glomer ular filtration [...] in Diagnosing Kidney Disease . Globulin, Total 2.4 2.1 - 4.2 g/dL 01/22/2025 3:04 PM EDT [facility] A/G Ratio 1.8 1.5 - 3.0 01/22/2025 3:04 PM EDT [facility] Blood Structure of peripheral vein / Unknown Venipuncture / Unknown 01/22/2025 8:06 AM EDT 01/22/2025 12:59 PM EDT us Patrica Gustafson V, DO LAB BLOOD ORDERABLES Fin al Result [facility] [address] [place] [address], * CT Lung Cancer Screening 12 Months [...] section, it is an incomplete radiology report. Please contact the interpreting radiologist or applicable radiology division as soon as possible to obtain the completed interpretation. Workstation ID: [id number] Up-to-date CT equipment and radiation dose reduction techniques were employed. CTDIvol: 1.6 mGy. DLP: 59 mGy-cm. Narrative 02/21/2024 2:[address] LUNG CANCER SCREENING 12 MONTHS ANNUAL FOLLOW UP INDICATION: CT lung cancer screening. COMPARISON: Screening CT from 02/03/2022 TECHNIQUE: Non-enhanced chest CT. Images were acquired with helical [...] Mild degenerative vertebral disease. Resulting Agency Comment [id number] Procedure Note Micah Ramos MD PhD - [...] possible to obtain thecompleted interpretation. Workstation ID: [id number] Up-to-date CT equipment and radiation dose reduction techniques wereemployed. CTDIvol: 1.6 mGy. DLP: 59 mGy-cm. us Patricaryan Gustafson V, DO IMG CT PROCEDURES Final Result * Hepatitis Panel, Acute (01/01/2023 9:24 AM EDT) Pathologist [facility] Hepatitis A IgM Antibody Interpretation NONREACTIVE NONREACTIVE . [facility] Hepatitis B Core IgM Antibody Interpretation NONREACTIVE NONREACTIVE . [facility] Comment: Biotin concentrations greater than 150 ng/ml may cause falsely depressed results for HBCAB. Hepatitis B Surface Antigen Interpretation NONREACTIVE NONREACTIVE . [facility] 01/01/2023 9:24 AM EDT us Patricaryan Meltonenhnusrat V, DO LAB BLOOD ORDERABLES Fin al Result [facility] from Last 3 Months or Most Recently Relevant to Health Maintenance Insurance [facility] OUT OF STATE PPO Advance Directives Documents on File Type Date Recorded Patient Torpedo Shooter Expl anation Health Care Proxy 09/29/2022 06/30/2022 * Full Code (Latest Code Status on File) Date Activated Date Inactivated Comments 02/24/2025 6:45 AM 02/24/2025 10:44 AM Care Teams Support Services Coordinator Relationship Specialty Start Date End Date Patrica Gustafson DO [address] [place] [address] PCP - General Family Medicine 08/17/23
--- OUTSIDE RECORDS SUMMARY | 2025-04-01 22:19 | XMS_ITS | Encounter Summary ---
Author Organization [facility] Address [address] [place] [address] Care Team Providers Care Product Safety Lead Name Role Phone Janay Peters DO, Diana Primary Care Provider + Encounter Details Date Type Department Care Team (Late st Contact Info) Description 01/30/2025 Orders Only [facility] Interventional Radiology [address] [place] [address] [id number] Ronen Arzola MD [address] [facility] [place] [address] Social History Tobacco Use Types Packs/Day Years Used Date Smoking Tobacco: Every Day Cigarettes 0.5 62.9 Started: 1960 Passive Smoke Exposure: Past Smokeless Tobacco: Never Alcohol Use Standard Drinks/Week Comments Not Currently 0 (1 standard drink = 0.6 oz pur e alcohol) [facility] Utilities Answer Date Recorded In the past 12 months has th e [employer], gas, oil, or water [employer] threatened to shut off services in your [...] AM EST documented as of this encounter Plan of Treatment Upcoming Encounters Date Type Department Care Team (Late st Contact Info) Description 04/21/2025 3:00 PM EST Follow-Up [address] [address] Patrica Gustafson DO [address] [place] [address] 07/23/2025 3:30 PM EDT Office Visit [address] [address] Patrica Gustafson DO [address] [place] [address] documented as of this encounter Visit Diagnoses Not on filedocumented in this encounter Care Teams Product Safety Lead Relationship Specialty Start Date End Date Patrica Gustafson DO [address] [place] [address] PCP - General Family Medicine 08/17/23 documented as of this encounter
--- OUTSIDE RECORDS SUMMARY | 2025-04-01 22:19 | XMS_ITS | Encounter Summary ---
Author Organization [facility] Address [address] [place] [address] Care Team Providers Care Mold Tooler Name Role Phone Janay Peters DO, Diana Primary Care Provider + Reason for Visit * Reason Onset Date Comments Overdue order 03/30/2025 Encounter Details Date Type Department Care Team (Late st Contact Info) Description 03/30/2025 Telephone [facility] [address] [facility] Family Practice Department [address] [place] [address] Patrica Gustafson DO [address] [place] [address] Overdue order Social History Tobacco Use Types Packs/Day Years Used Date Smoking Tobacco: Every Day Cigarettes 0.5 62.9 Started: 1961 Passive Smoke Exposure: Past Smokeless Tobacco: Never Alcohol Use Standard Drinks/Week Comments Not Currently 0 (1 standard drink = 0.6 oz pur e alcohol) [facility] Utilities Answer Date Recorded In the past 12 months has e [employer], gas, oil, or water [employer] threatened to shut off services in your [...] encounter Miscellaneous Notes * Telephone Encounter - Feli Samayoa [place] - 03/30/2025 11:40 AM EST Pt is overdue for a CT lung cancer screening. He has told radiology that he wants to discuss this with his torch shearer before he schedules. He states he is scheduled Sunday with his torch shearer. documented in this encounter Plan of Treatment Upcoming Encounters Date Type Department Care Team (Late st Contact Info) Description 04/21/2025 3:00 PM EST Follow-Up [address] Practice Department [address] [place] [id number] Patrica Gustafson DO [address] [place] [address] 07/23/2025 3:30 PM EDT Office Visit [address] Department [address] [place] [address] Patrica Gustafson DO [address] [place] [address] documented as of this encounter Visit Diagnoses Not on filedocumented in this encounter Care Teams Mold Tooler Relationship Specialty Start Date End Date Patrica Gustafson DO [address] [place] [address] PCP - General Family Medicine 08/17/23 documented as of this encounter
--- OUTSIDE RECORDS SUMMARY | 2025-04-01 22:19 | XMS_ITS ---
Author Organization [facility] Address [address] [place] [address] Care Team Providers Care Customer Service Cashier Name Role Phone Janay Peters DO, Diana Primary Care Provider + Active Problems Problem Noted Date Diagnosed Date History of non-ST elevation myocardial infarctio n (NSTEMI) 01/20/2025 Assessment & Plan (01/21/2025 9:46 PM EDT): Currently asymptomatic. 03/24/24 [facility] hospitalization for chest pain and VILLAREAL. Troponins were flat. 03/28 CABG x 3 with post op Afib. Plavix and aspirin for 1 year for NSTEMI. Follows with ui software engineer Dr. Castro. Chronic obstructive pulmonary disease 08/06/2024 Arthralgia of right elbow 06/24/2024 NSTEMI (non-ST elevated myocardial infarction) 1 07/08/2023 Assessment & Plan (11/09/2024 10:17 PM EDT): Currently asymptomatic. 03/24/24 [facility] hospitalization for chest pain and VILLAREAL. Troponins were flat. 03/28 CABG x 3 with post op Afib. Plavix and aspirin for 1 year for NSTEMI. Will be starting cardiac rehab in May. Will be seeing ui software engineer Dr. Castro in October. Assessment & Plan (07/30/2024 2:08 PM EDT): Currently asymptomatic. 03/24/24 [facility] hospitalization for chest pain and VILLAREAL. Troponins were flat. 03/28 CABG x 3 with post op Afib. Plavix and aspirin for 1 year for NSTEMI. Will be starting cardiac rehab in May. Will be seeing ui software engineer Dr. Castro in October. Assessment & Plan (05/07/2024 9:55 PM EST): 03/24/24 [facility] hospitalization for chest pain and VILLAREAL. Troponins were flat. 03/28 CABG x 3 with post op Afib. Plavix and aspirin for 1 year for NSTEMI. Will be starting cardiac rehab in May. Will be seeing ui software engineer Dr. Castro on May 02. 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 03/24/24 [facility] hospitalization for chest pain and VILLAREAL. Troponins were flat. 03/28 CABG x 3 with post op Afib. Plavix and aspirin for 1 year for NSTEMI. Follows with ui software engineer Dr. Castro. Assessment & Plan (11/09/2024 10:17 PM EDT): As above. Assessment & Plan (07/30/2024 2:08 PM EDT): As above. Assessment & Plan (05/07/2024 9:55 PM EST): As above. A-fib 05/07/2024 Assessment & Plan (01/21/2025 9:46 PM EDT): Post CABG Afib. Continue beta rosalind, eliquis as prescribed by ui software engineer. Assessment & Plan (11/09/2024 10:17 PM EDT): Post CABG Afib. Continue beta rosalind, eliquis as prescribed by ui software engineer. Assessment & Plan (07/30/2024 2:08 PM EDT): Post CABG Afib. Continue beta rosalind, eliquis as prescribed by ui software engineer. Assessment & Plan (05/07/2024 9:55 PM EST): Post CABG Afib. Continue beta rosalind, eliquis as prescribed by ui software engineer. Emphysema of lung 05/07/2024 Assessment & Plan [...] Dose Automatic Entry Manual Entr y TotalDLP 963 mGy 963 mGy 0 mGy [id number] 12.5 mSv 12.5 mSv 0 mSv CTDIvol Max 17.4 mGy 17.4 mGy 0 mGy CTDIvol Min 17.4 mGy 17.4 mGy 0 mGy Resolved Problems Problem Noted Date Diagnosed Date Resolved Date COVID-19 05/16/2023 05/07/2024 Former smoker 05/16/2023 01/17/2024
== END 2025-04-01 12:02 | disposition home or self-care (01) ==
LOC: HO.HPS 11:19
PROVIDERS: PCP Family Medicine; Visit Provider Hospitalist
DX: J43.2 Centrilobular emphysema (principal); R06.09 Other forms of dyspnea; G47.33 Obstructive sleep apnea (adult) (pediatric); J90 Pleural effusion, not elsewhere classified; I25.10 Atherosclerotic heart disease of native coronary artery without angina pectoris
CPT/HCPCS: 99214